=== PATIENT | female | born 1940 | race Caucasian/White ===

== ENCOUNTER 2019-06-25 14:02 | Emergency (ER) | payer MEDICARE, SELFPAY ==
[2019-06-25 14:05] VITALS: BP 161/80; PULSE 83; RESP 16; TEMP 36.9; O2SAT 99; BMI 24.0
--- NOTE | 2019-06-25 15:00 | CT_ITS ---
STUDY: CT BRAIN WITHOUT CONTRAST REASON FOR EXAM: Female, 78 years old. Confusion dizziness RADIATION DOSAGE (If Supplied By Facility): CTDIvol = ( 44.99 ) mGy, DLP = ( 762.36 ) mGycm TECHNIQUE: Transaxial CT imaging of the brain was performed without administration of intravenous contrast material. Individualized dose optimization techniques were used for this CT. COMPARISON: No relevant priors. FINDINGS: Normal soft tissue structures. Normal calvarium. There is mild cerebral atrophy with widening of the extra-axial spaces and ventricular dilatation. There are areas of decreased attenuation within the white matter tracts of the supratentorial brain, consistent with microvascular disease changes. Normal basal ganglia and thalami. Normal brainstem. There is mild cerebellar atrophy. There is no intracranial hemorrhage. There are no findings of an acute ischemic infarction. Normal visualized paranasal sinuses. CT/Brain/Head without Contrast IMPRESSION: Atrophy. No evidence of acute hemorrhage infarct or edema. Electronically Signed: Ara Leach MD at 15:47 EST Tel , Service support ,
--- NOTE | 2019-06-25 15:03 | ED.DCSUM_ITS ---
History of Present Illness Chief Complaint: Upper Extremity Injury Informant: Patient, Family Narrative: Patient is a 78-year-old female with history of recent mechanical fall and I fracture of her distal left radius presenting with family for concerns of confusion. They note that over the past few months patient has seemed more confused and has had erratic behavior. She is missed doctor's appointments even though she was at the doctor's office and when she just left from the waiting room earlier this month. She apparently is going to the grocery store every day this week and about the same item. Family is concerned that she has a brain tumor or something elsewrong with her. Patient was seen at [facility] urgent care and diagnosed with a distal radius fracture this week. She was placed in a splint but patient keeps taking the splint off and not wearing it. Patient states she was never told to keep it on. Patient has some mild pain in her wrist. She is been taking Tylenol for the pain. Patient states she lost her balance and fell onto an outstretched hand. She denies hitting her head. Patient has no complaints at this time he does not feel confused. She does not recall the events of the family speaks of. Past Medical History - Allergies and Home Meds Allergies/Adverse Reactions: Allergies succinylcholine [Succinylcholine] Allergy (Severe, Verified 06/25/19 14:04) Other PARALYZED levofloxacin [From Levaquin] Allergy (Mild, Verified 06/25/19 14:04) Rash Sulfa (Sulfonamide Antibiotics) Allergy (Mild, Verified 06/25/19 14:04) Rash lorazepam Adverse Reaction (Intermediate, Verified 06/25/19 14:04) Other HALLUCINATION atorvastatin [From Lipitor] Adverse Reaction (Verified 06/25/19 14:04) muscle aches Primary Care Physician: Melvi Villalta MD [Primary Care Provider] - Jaron Lara DO [STAFF PHYSICIAN] - Past Medical History: - - Hypothyroid, hypertension, diabetes mellitus, GERD, depression, COPD Surgical History: noncontributory Lives: Spouse/ Significant Other Smoking Status: Never smoker Alcohol: None Drugs: None Review of Systems General: Denies: Chills, Fever, Sweats Eyes: Denies: Visual changes - bilaterally, Diplopia ENT: Denies: Rhinorrhea, Sore throat Cardiovascular: Denies: Chest pain, Palpitations Respiratory: Denies: Dyspnea, Cough, Dyspnea on exertion Gastrointestinal: Denies: Abdominal pain, Nausea, Vomiting, Diarrhea, Melena, Hematochezia Genitourinary: Denies: Dysuria, Hematuria, Frequency Musculoskeletal: Reports: Swelling - Left wrist/hand, Extremity Pain - Left wrist. Denies: Back pain Skin: Denies: Rash, Wounds Neurological: Reports: - - Increased confusion over the past few months per family. Denies: Headache, Weakness, Numbness Physical Exam Vital Signs/Narrative: Vital Signs Temp Pulse Resp BP Pulse Ox 06/25/19 14:05 98.5 F 83 16 161/80 H 99 Inital Vital Signs reviewed: Yes General: Well nourished, Well developed, No Acute Distress Head: Normocephalic, Atraumatic Eyes: Perrl, EOMI ENT: Moist mucous membranes, No rhinorrhea, TM's clear Neck: Supple, Nontender Cardiovascular: Regular rate, Regular rhythm, No murmurs Respiratory: No distress, CTA bilaterally, Chest nontender Abdomen: Soft, Nontender, Nondistended, Normal bowel sounds Back: Nontender, Normal Inspection Extremities: Tenderness - Left wrist/distal forearm, Edema - Left wrist/distal forearm Skin: Normal color, No rash, Trauma - Ecchymosis of the left wrist and hand Neurological: Alert, Oriented x3, Cranial nerves II-XII grossly intact, Normal Strength, Normal Sensation, - - Patient is A&O x3 however she does repeat herself frequently with a reenter the room and does seem to have some issues with short-term memory Psychological: Normal affect, Normal Mood Diagnostic/Tx/Re-eval Clinical Impression(s) from Imaging Studies Brain CT 06/25/19 15:00 IMPRESSION: Atrophy. No evidence of acute hemorrhage infarct or edema. Electronically Signed: Ara Leach MD at 15:47 EST Tel , Service support , Laboratory Data 06/25/19 06/25/19 06/25/19 15:17 15:17 15:31 WBC 6.4 RBC 4.54 Hgb 14.5 Hct 41.5 MCV 91.4 MCH 31.9 MCHC 34.9 RDW Std Deviation 41.0 RDW Coeff of Thiago 12.4 Plt Count 150 MPV 9.2 Immature Gran % (Auto) 0.300 Neut % (Auto) 76.8 H Lymph % (Auto) 14.8 L Dooly % (Auto) 7.0 Eos % (Auto) 0.9 Baso % (Auto) 0.2 Absolute Neuts (auto) 4.9 Absolute Lymphs (auto) 0.95 Nucleated RBC % 0 Sodium 136 Potassium 3.9 Chloride 103 Carbon Dioxide 26.0 Anion Gap 7 BUN 11 Creatinine 0.93 Estim Creat Clear Calc 39.43 Est GFR (MDRD) Af Amer 75 Est GFR (MDRD) Non-Af 62 BUN/Creatinine Ratio 11.8 Glucose 167 H Calcium 9.5 Total Bilirubin 0.50 AST 12 L ALT 13 Alkaline Phosphatase 77 Total Protein 7.0 Albumin 3.9 Globulin 3.1 Albumin/Globulin Ratio 1.3 Urine Color Yellow Urine Clarity Clear Urine pH 7.0 Ur Specific [place] 1.010 Urine Protein Negative Urine Glucose (UA) Normal Urine Ketones Negative Urine Occult Blood 10 H Urine Nitrite Negative Urine Bilirubin Negative Urine Urobilinogen Normal Ur Leukocyte Esterase 25 H Urine RBC 0 SEEN Urine WBC 0-5 SEEN Ur Squamous Epith Cells 0-5 SEEN Urine Bacteria RARE Urine Mucus 0 SEEN - Medical Decision Making Patient is initially brought in for re-splinting of her left arm as she has taken off her splint. Patient did have x-rays are reviewed but did show nondisplaced distal radius fracture. A new splint is applied. Patient is neurovascular intact. She has not seen any new injuries and I do not think repeat imaging is indicated. However, family is quite concerned that over the past few months she has been more confused and might be developing dementia. They are worried that also she could have an organic cause. CT of the brain and lab work and urine are unremarkable and do not explain her symptoms. Likely she is starting to have dementia. Patient is counseled extensively that she needs to keep her splint on. A new volar splint is placed. I did discuss with Dr. Lara to help arrange follow-up with her this week. Patient has good pain control and is instructed take Tylenol as needed for pain. Family is counseled on signs and symptoms upon return the emergency room. They verbalized agreement understanding this plan. Patient discharged home in stable condition. She is encouraged also follow-up with her primary care physician for further evaluation of her memory issues. ED Disposition - Plan for ED Patient: Disposition: Home or Assisted Living Diagnosis: Fracture of left distal radius Instructions: FRACTURE, Upper Extremity Referrals: Melvi Villalta MD [Primary Care Provider] - Jaron Laar DO [STAFF PHYSICIAN] - Additional Instructions: I reviewed the disc from urgent care and agree that you have a fracture of your distal radius. It is very important that you keep your splint on so that you do not continue. Follow-up with orthopedics next week. You have been given contact information for Dr. Lara. It is also very important that you follow- up with your primary care doctor as you have had some increased forgetfulness. Return the emergency room you have any worsening symptoms. Take Tylenol as needed for pain. Do not remove your splint unless you are having numbness or severe pain of your hand.
[2019-06-25 15:26] LABS: Absolute Lymphocyte Count 0.95 X10^3/uL (0.83-4.51); Absolute Neutrophil Count 4.9 X10^3/uL (2.0-7.7); Basophil# 0.01 X10^3/uL; Basophil% 0.2 % (0-1); Eosinophil# 0.06 X10^3/uL; Eosinophils% 0.9 % (0-5); Hematocrit 41.5 % (37-47); Hemoglobin 14.5 g/dL (12.0-15.0); Lymphocyte # 0.95 X10^3/ul (4.0); Lymphocyte % 14.8 % (19-41); Mean Corp Hgb Conc 34.9 g/dL (32-36); Mean Corpuscular Hgb 31.9 pg (27.0-32.0); Mean Corpuscular Volume 91.4 fL (81-99); Mean Platelet Vol. 9.2 fl (6.2-12.0); Monocyte# 0.45 X10^3/uL; NRBC Flagged by Analyzer 0 % (0-5); Neutrophil # 4.92 X10^3/uL (2.7-7.7); Neutrophil % 76.8 % (47-70); Platelet Count 150 K/mm3 (150-450); RBC Distribution Width CV 12.4 % (11.6-14.6); Red Blood Count 4.54 M/mm3 (4.2-5.4); White Blood Count 6.4 K/mm3 (4.4-11.0)
[2019-06-25 15:45] LABS: Mucous, Urine 0 SEEN /hpf (<or=2+); Red Blood Cells-Urine 0 SEEN /hpf (0-5)
[2019-06-25 15:48] LABS: ALB/GLOB Ratio 1.3 RATIO (0.9-2.4); AST(SGOT) 12 U/L (15-37); Alanine Aminotransfer ALT/SGPT 13 U/L (13-56); Albumin, Serum 3.9 g/dL (3.2-5.0); Alkaline Phosphatase 77 U/L (45-117); Anion Gap 7 (5-15); BUN 11 mg/dL (7-18); BUN/Creat Ratio 11.8 RATIO (10-20); Calcium,Total 9.5 mg/dL (8.5-10.1); Chloride 103 mmol/L (98-107); Creatinine, Serum 0.93 mg/dL (0.55-1.02); EST Glomerular Filtration Rate 62 mL/min (>60); Est Glom Filt Rate - Afr Amer 75 mL/min (>60); Estimated Creatinine Clearance 39.43 ml/min; Globulin 3.1 g/dL (2.2-4.2); Glucose 167 mg/dL (74-106); Potassium 3.9 mmol/L (3.5-5.1); Sodium Level 136 mmol/L (136-145)
[2019-06-25 15:52] LABS: Color, Urine Yellow (Yellow); Glucose, Dipstick Normal (Normal); Ketone-Dipstick Negative (Negative); Leukocyte Esterase-Dipstick 25 /ul (Negative); Nitrite-Dipstick Negative (Negative); Occult Blood-Urine 10 /ul (Negative); Protein-Dipstick Negative (Negative); Urine Bilirubin Dipstick Negative (Negative); Urine Clarity Clear (Clear); Urine Urobilinogen Normal (Normal)
[2019-06-25 16:08] LABS: White Blood Cells 0-5 SEEN /hpf (0-5)
[2019-06-25 16:09] LABS: Bacteria RARE /hpf (None Seen); Squamous Epithelial Cells - UA 0-5 SEEN /hpf (5-10)
== END 2019-06-25 17:22 | disposition home or self-care (01) ==
PROVIDERS: Emergency Provider Emergency Medicine; Family Provider Internal Medicine; PCP Internal Medicine
DX: S52.502D Unspecified fracture of the lower end of left radius, subsequent encounter for closed fracture with routine healing (principal); R41.0 Disorientation, unspecified; E03.9 Hypothyroidism, unspecified; I10 Essential (primary) hypertension; F32.9 Major depressive disorder, single episode, unspecified; E11.9 Type 2 diabetes mellitus without complications; J44.9 Chronic obstructive pulmonary disease, unspecified; K21.9 Gastro-esophageal reflux disease without esophagitis; Z79.51 Long term (current) use of inhaled steroids; Z79.84 Long term (current) use of oral hypoglycemic drugs; Z79.899 Other long term (current) drug therapy; W19.XXXD Unspecified fall, subsequent encounter
CPT/HCPCS: 70450; 80053; 81001; 85025; 99283; A4216

== ENCOUNTER 2019-07-02 10:41 | Emergency (ER) | payer MEDICARE, SELFPAY ==
[2019-07-02 10:42] VITALS: BP 156/86; PULSE 88; RESP 17; TEMP 36.9; O2SAT 98; BMI 23.2
--- NOTE | 2019-07-02 11:00 | RAD_ITS ---
STUDY: X-RAY - LEFT WRIST REASON FOR EXAM: Female, 78 years old. Left wrist deformity/pain s/p near fall-pt hit her arm while trying to catch herself from a fall TECHNIQUE: 3 view(s) of the wrist were obtained. COMPARISON: None. FINDINGS: Nondisplaced impaction type fracture of the distal radius. No evidence of intra-articular extension. There is a small and minimally displaced fracture of the ulnar styloid process. Soft tissue swelling with diffuse demineralization. RAD/Wrist min 3 Views IMPRESSION: Fractures as above Electronically Signed: Jose Louis DO at 11:28 EST Tel , Service support ,
--- NOTE | 2019-07-02 11:00 | ED.VISSUMM ---
- ER Visit Summary Date of Service: 07/02/19 Chief Complaint: Left wrist injury History of Present Illness: The patient is a 78 F who presents with a left wrist injury that occurred 2 days ago. Patient states she slipped while she was going down some stairs and hit her wrist on the railing. Patient states she was able to catch herself and did not fall to the ground. Patient denies any head injury or loss of consciousness. Patient denies any other injuries. Patient states she has been using ice with some relief. Patient denies any paresthesias or weakness. Physical Examination: Vital signs are stable. Patient is afebrile. Patient is in no acute distress. Musculoskeletal exam reveals tenderness, edema, and mild ecchymosis over the left wrist. There is no bony crepitance or step-off. Range of motion was slightly limited in complete flexion and complete extension secondary to pain. Sensation was intact light touch in the radial, median, and ulnar areas. Strength is 5/5 in the radial, median, and ulnar areas. Radial pulses are equal bilaterally. Capillary refill was less than 2 seconds in all digits. Test Results: X-rays of the left wrist were obtained. There is a nondisplaced fracture of the distal radius. There is also a minimally displaced fracture of the ulnar styloid. This was interpreted by the radiologist and myself. Emergency Department Course and Treatment: Patient was placed in a well-padded volar splint using 4 inch Ortho-Glass. Patient tolerated the procedure well. Neurovascular exam was intact post procedure. Patient was instructed to ice and elevate the left wrist. Patient was instructed to follow-up with Dr. Mason in 5 to 7 days. Patient was instructed to use Tylenol as needed for pain. Patient understood and was agreeable with the plan. All questions were answered. Disposition: Discharge home Impression: 1. Left distal radius fracture This note was generated with [employer]Span dictation software. It may contain incorrect words, spelling, and punctuation that were not noted in review of the chart prior to signing ED Disposition - Plan for ED Patient: Referrals: Melvi Villalta MD [Primary Care Provider] -
--- NOTE | 2019-07-02 13:26 | CM.ED ---
Social Work Consult: Resources Informant: Nursing staff After patient discharged from the ED patient son asking to speak with social science instructor about resources as patient son is concerned about safety and possible Dementia diagnosis for patient. Met with patient son, Evens Holt. Evens stating that patient broke arm around 2 weeks ago and since then patient has removed splint 3 times and continues to return to the ED for pain in arm. Evens stating that patient appears to be removing splint on arm and then forgetting that patient has a broken arm and returning to the ED due to the pain. Evens stating that patient lives alone and still drives. Per Evens patient goes to the grocery store daily and buys the same things every day. Evens stating that 8 months ago patient started to [employer] grocer[employer]. Evens stating that patient has filled a full sized chest freezer and refrigerator with food and that Evens has cleaned out both multiple times. Evens concerned with patient safety in the home and stating to have set up an appointment with a production aide company for the 21 of July. Evens stating that one of patient's friends also contacted Evens stating that patient has been getting lost while out driving. Evens inquiring into possible options for patient until 24hr care is set up for patient within the home. This social science instructor broaching topic of respite care in an assisted living or retirement. Evens stating that respite care could be an option but is not what Evens is wanting to do at this time. This social science instructor broached topic of medical alert as well as possibilities of patient staying with Evens. Evens stating to already be taking care of [id number] and to not be sure if would be able to provide care for both patient and [id number]. Evens interested in medical alert information, information provided along with 211 resource guide, list of private duty aides, assisted livings and [facility]. Evens stating to believe that patient is taking medications as directed but not sure about this. This social science instructor encouraging Evens to set up doctors appointment for patient to be able to rule out any other possible medical complications. Evens also stating plan to take away patient keys for the time being. Active listening and support provided. Guy Nash MSW, HOLLY
== END 2019-07-02 12:44 | disposition home or self-care (01) ==
PROVIDERS: Emergency Provider Emergency Medicine; Family Provider Internal Medicine; PCP Internal Medicine
DX: S52.502A Unspecified fracture of the lower end of left radius, initial encounter for closed fracture (principal); S52.612A Displaced fracture of left ulna styloid process, initial encounter for closed fracture; W10.9XXA Fall (on) (from) unspecified stairs and steps, initial encounter; Y93.9 Activity, unspecified; Y92.9 Unspecified place or not applicable; J45.909 Unspecified asthma, uncomplicated; E11.9 Type 2 diabetes mellitus without complications; Z79.84 Long term (current) use of oral hypoglycemic drugs; Z79.899 Other long term (current) drug therapy
CPT/HCPCS: 29125; 73110; 99282

== ENCOUNTER 2019-08-29 15:25 | Emergency (ER) | payer MEDICARE, SELFPAY ==
[2019-08-29 15:28] VITALS: BP 162/92; PULSE 92; RESP 18; TEMP 36.7; O2SAT 99; BMI 23.1
--- NOTE | 2019-08-29 15:50 | RAD_ITS ---
STUDY: X-RAY - LEFT RADIUS AND ULNA REASON FOR EXAM: Female, 78 years old. PAIN S/P INJURY -- PAIN IS MID FOREARM TECHNIQUE: 2 view(s) of the forearm. COMPARISON: 07/02/2019 FINDINGS: There is no evidence of forearm fracture however, there is evidence of healing distal radius fracture as identified in June. Remainder is within normal limits RAD/Forearm 2 Views IMPRESSION: As above Electronically Signed: Jose Louis DO at 16:13 EST Tel , Service support ,
--- NOTE | 2019-08-29 15:54 | ED.DCSUM_ITS ---
History of Present Illness Chief Complaint: Upper Extremity Injury Informant: Patient Occurred: Weeks - 1.5 Mechanism/Context: Injury Context: Sudden Onset - accidentally bumped it on railing along her staircase at home Timing: Continuous Quality of Pain: Aching Location: left mid-proximal forearm Current Severity: Moderate Maximum Severity: Moderate Worsened by: certain movements Relieved by: remaining still Associated Symptoms: Negative for: Parasthesia, Weakness, Loss of Funtion Narrative: [id number]. She had a relatively minor blunt injury to her left forearm accidentally, she saw urgent care at [facility] last week but they did not she did an x-ray and she states it seems to be hurting a little worse now so she became concerned. She denies any numbness distally. She denies any wrist pain but the pain more proximally in her forearm hurts worse with certain wrist movements. - Past Medical History (1) Hypothyroidism Status: Chronic (2) Hypertension Status: Chronic (3) GERD (gastroesophageal reflux disease) Status: Chronic (4) Autoimmune disorder Status: Chronic Past Medical History - Allergies and Home Meds Allergies/Adverse Reactions: Allergies succinylcholine [Succinylcholine] Allergy (Severe, Verified 08/29/19 15:30) Other PARALYZED levofloxacin [From Levaquin] Allergy (Mild, Verified 08/29/19 15:30) Rash Sulfa (Sulfonamide Antibiotics) Allergy (Mild, Verified 08/29/19 15:30) Rash lorazepam Adverse Reaction (Intermediate, Verified 08/29/19 15:30) Other HALLUCINATION atorvastatin [From Lipitor] Adverse Reaction (Verified 08/29/19 15:30) muscle aches Primary Care Physician: Melvi Villalta MD [Primary Care Provider] - 1 Week if not improving Surgical History: noncontributory Lives: Alone Smoking Status: Never smoker Review of Systems General: Denies: Chills, Fever, Sweats Musculoskeletal: Reports: Extremity Pain. Denies: Neck pain, Back pain, Swelling Skin: Denies: Rash, Abscess, Abrasions, Wounds Neurological: Denies: Headache, Weakness, Parasthesia, Numbness Physical Exam Vital Signs/Narrative: Vital Signs Temp Pulse Resp BP Pulse Ox 08/29/19 15:28 98.1 F 92 18 162/92 H 99 General: Well nourished, Well developed, - - Well-appearing, no distress Head: Normocephalic, Atraumatic Extremeties: Full range of motion throughout all joints of her left upper extremity. Tender at the dorsum of the left mid-proximal forearm, and the extensor musculature in between the ulna and the radius. No deformities. No hematomas or evidence of trauma. Increased pain when extending at the wrist against resistance. Full range of motion at the wrist and elbow. No bony tenderness at the wrist or elbow. Skin: Normal color, No rash, No Trauma Neurological: Alert, Oriented x3, Cranial nerves II-XII grossly intact, Normal Strength, Normal Sensation Psychological: Normal affect, Normal Mood Diagnostic/Tx/Re-eval Clinical Impression(s) from Imaging Studies Forearm X-Ray 08/29/19 15:50 IMPRESSION: As above Electronically Signed: Jose Louis DO at 16:13 EST Tel , Service support , - Medical Decision Making X-rays are unremarkable. Her history and exam are consistent with muscular contusion of the extensor digitorum of the left upper extremity. Supportive care advised. Patient was reassured, she is comfortable with discharge home and supportive care. ED Disposition - Plan for ED Patient: Disposition: Home or Assisted Living Diagnosis: Contusion of left forearm Instructions: CONTUSION, Upper Extremity Referrals: Melvi Villalta MD [Primary Care Provider] - 1 Week if not improving
[2019-08-29 16:44] VITALS: RESP 17
== END 2019-08-29 16:48 | disposition home or self-care (01) ==
PROVIDERS: Emergency Provider Emergency Medicine; PCP Internal Medicine
DX: S50.12XA Contusion of left forearm, initial encounter (principal); I10 Essential (primary) hypertension; K21.9 Gastro-esophageal reflux disease without esophagitis; E03.9 Hypothyroidism, unspecified; Z79.899 Other long term (current) drug therapy; W22.09XA Striking against other stationary object, initial encounter; Y93.89 Activity, other specified; Y92.008 Other place in unspecified non-institutional (private) residence as the place of occurrence of the external cause; Y99.8 Other external cause status
CPT/HCPCS: 73090; 99282

== ENCOUNTER 2020-03-05 16:50 | Observation (INO) | payer MEDICARE, SELFPAY ==
[2020-03-05 16:51] VITALS: BP 154/99; PULSE 87; RESP 18; TEMP 36.4; O2SAT 97; BMI 22.3
[2020-03-05 16:59] VITALS: BP 166/108; PULSE 87; RESP 16
--- NOTE | 2020-03-05 17:12 | RAD_ITS ---
STUDY: X-RAY CHEST REASON FOR EXAM: Female, 79 years old. Hypertension, left arm numbness TECHNIQUE: Single AP portable view of the chest. COMPARISON: 07/07/2016 FINDINGS: EKG leads overlie the chest The lungs are clear and expanded. There is no demonstrated pleural abnormality. Normal size heart. Normal mediastinum and jennie. Normal visualized pulmonary arteries. Normal visualized aortic arch and descending thoracic aorta. Normal visualized thoracic spine. Normal visualized ribs, clavicles, and shoulders. There is no demonstrated abnormality of the visualized soft tissue structures of the upper abdomen. RAD/Chest 1 View (Portable) IMPRESSION: No acute pulmonary process Electronically Signed: Edilson Jaime MD at 17:53 EDT , Service support ,
--- NOTE | 2020-03-05 17:13 | EKG12_ITS ---
Test Reason : Blood Pressure : / mmHG Vent. Rate : 077 BPM Atrial Rate : 077 BPM P-R Int : 148 ms QRS Dur : 088 ms QT Int : 366 ms P-R-T Axes : 024 -51 058 degrees QTc Int : 414 ms Sinus rhythm with Premature atrial complexes Left axis deviation Low voltage QRS (Limb Leads) Poor R wave progression Inferior GA, age undetermined, cannot be excluded Abnormal ECG Confirmed by AYANA PALMER, MORENO ([id number]), rewrite editor WINTER LINARES ([id number]) on 03/07/2020 1:02:01 PM Referred By: CARTER Confirmed By:MORENO PIÑA MD
--- NOTE | 2020-03-05 17:13 | CT_ITS ---
STUDY: CT BRAIN WITHOUT CONTRAST REASON FOR EXAM: Female, 79 years old. Hypertension, mental status change RADIATION DOSAGE (If Supplied By Facility): CTDIvol = ( 44.99 ) mGy, DLP = ( 812.98 ) mGycm TECHNIQUE: Transaxial CT imaging of the brain was performed without administration of intravenous contrast material. Individualized dose optimization techniques were used for this CT. COMPARISON: No relevant priors. FINDINGS: Normal soft tissue structures. Normal calvarium. There is mild cerebral atrophy with widening of the extra-axial spaces and ventricular dilatation. There are areas of decreased attenuation within the white matter tracts of the supratentorial brain, consistent with microvascular disease changes. Normal basal ganglia and thalami. Normal brainstem. Normal cerebellum. There is no intracranial hemorrhage. There are no findings of an acute ischemic infarction. Normal visualized paranasal sinuses. CT/Brain/Head without Contrast IMPRESSION: Chronic involutional changes of the brain. No acute hemorrhage Electronically Signed: Edilson Jaime MD at 18:21 EDT , Service support ,
[2020-03-05 17:29] LABS: Absolute Lymphocyte Count 0.83 X10^3/uL (0.83-4.51); Absolute Neutrophil Count 4.2 X10^3/uL (2.0-7.7); Basophil# 0.02 X10^3/uL; Basophil% 0.4 % (0-1); Eosinophil# 0.04 X10^3/uL; Eosinophils% 0.7 % (0-5); Hematocrit 45.8 % (37-47); Hemoglobin 15.7 g/dL (12.0-15.0); Lymphocyte # 0.83 X10^3/ul (4.0); Lymphocyte % 15.3 % (19-41); Mean Corp Hgb Conc 34.3 g/dL (32-36); Mean Corpuscular Hgb 31.5 pg (27.0-32.0); Mean Platelet Vol. 8.9 fl (6.2-12.0); Monocyte# 0.32 X10^3/uL; Monocyte% 5.9 % (0-10); NRBC Flagged by Analyzer 0 % (0-5); Neutrophil # 4.18 X10^3/uL (2.7-7.7); Neutrophil % 77.1 % (47-70); Platelet Count 154 K/mm3 (150-450); RBC Distribution Width CV 12.6 % (11.6-14.6); RBC Distribution Width SD 42.5 fl (35.1-43.9); Red Blood Count 4.98 M/mm3 (4.2-5.4); White Blood Count 5.4 K/mm3 (4.4-11.0)
[2020-03-05 17:46] LABS: Bedside Glucose 145 mg/dL (70-110)
[2020-03-05 17:51] LABS: ALB/GLOB Ratio 1.3 RATIO (0.9-2.4); AST(SGOT) 13 U/L (15-37); Alanine Aminotransfer ALT/SGPT 15 U/L (13-56); Alkaline Phosphatase 63 U/L (45-117); Anion Gap 4 (5-15); BUN 13 mg/dL (7-18); BUN/Creat Ratio 13.3 RATIO (10-20); Calcium,Total 9.7 mg/dL (8.5-10.1); Chloride 105 mmol/L (98-107); Creatinine, Serum 0.98 mg/dL (0.55-1.02); EST Glomerular Filtration Rate 58 mL/min (>60); Est Glom Filt Rate - Afr Amer 71 mL/min (>60); Estimated Creatinine Clearance 36.82 ml/min; Glucose 164 mg/dL (74-106); Potassium 4.1 mmol/L (3.5-5.1); Sodium Level 136 mmol/L (136-145); Thyroid Stim Hormone (TSH) 4.99 uIU/mL (0.358-3.74)
--- NOTE | 2020-03-05 18:10 | CM.ED ---
SOCIAL WORK Informant: Dr. Garcia Reason for Consult: Discharge planning Case discussed with Dr. Garcia. Per Dr. Garcia, patient with history of dementia and is a hoarder. Son in room with concerns for patient going home. Recommending SNF. Met with son in room. Patient out of room at this time. Introduced role and reason for referral. Son discussed concerns for patient's safety in the home and hoarding behaviors. Patient with history of dementia. Son reports patient still drives and makes daily trips to [facility]. Son showed this worker pictures on phone of patient's home conditions. Patient is unable to close her fridge due to it being overloaded with food. Patient with unclear pathways to get through the home. Education provided on Adult Protective Services, this worker to complete a report. Son states patient's daughter is HPOA and they have been discussing placement. Son reports patient will likely refuse to go to SNF. Much support and education provided to son. Awaiting work up at this time. Dr. Garcia updated on this worker's conversation with son. Plan: RICHI Spain, AGRICULTURAL SERVICE TECHNICIAN, WASH DRILLER
[2020-03-05 18:14] LABS: Alcohol, Blood (Medical)-Serum < 3.0 mg/dL
[2020-03-05 19:05] LABS: Bacteria 0 SEEN /hpf (None Seen); Mucous, Urine 0 SEEN /hpf (<or=2+); Red Blood Cells-Urine 0 SEEN /hpf (0-5); Squamous Epithelial Cells - UA 0 SEEN /hpf (5-10); White Blood Cells 0 SEEN /hpf (0-5)
[2020-03-05 19:21] LABS: Color, Urine Yellow (Yellow); Glucose, Dipstick Normal (Normal); Ketone-Dipstick Negative (Negative); Leukocyte Esterase-Dipstick Negative /ul (Negative); Nitrite-Dipstick Negative (Negative); Occult Blood-Urine Negative /ul (Negative); Protein-Dipstick Negative (Negative); Urine Bilirubin Dipstick Negative (Negative); Urine Clarity Clear (Clear); Urine Urobilinogen Normal (Normal); Urine pH 6.5 (5.0 - 8.0)
[2020-03-05 19:30] VITALS: BP 158/78; PULSE 96; RESP 16; O2SAT 96
--- NOTE | 2020-03-05 19:40 | CM.ED ---
SOCIAL WORK Patient to be admitted. Discussed case with Dr. Wang who met with patient and daughter in room. Per son's request, met with son-Jared Holt ([phone]) and daughter/HPOA, Yara Espinal ([phone]) in waiting room. Discussed options for SNF and HEATHER. Education provided on Adult Protective Services and informed this worker will make report and provide APS with family's contact information. Informed a psych social worker will follow up tomorrow for safe discharge planning. All questions answered and support provided. Plan: Admit Baldemar Spain MSW, METAL MACHINE SETTER
--- NOTE | 2020-03-05 19:41 | PCM.HP.STD ---
Problem List (1) TIA (transient ischemic attack) Status: Acute (2) Paresthesia of left upper extremity Status: Acute (3) HLD (hyperlipidemia) Status: Chronic Qualifiers: Hyperlipidemia type: unspecified Qualified Code(s): E78.5 - Hyperlipidemia, unspecified (4) Dementia Status: Chronic Qualifiers: Dementia type: unspecified type Dementia behavioral disturbance: without behavioral disturbance Qualified Code(s): F03.90 - Unspecified dementia without behavioral disturbance (5) Autoimmune disorder Status: Chronic (6) GERD (gastroesophageal reflux disease) Status: Chronic Qualifiers: Esophagitis presence: esophagitis presence not specified Qualified Code(s): K21.9 - Gastro-esophageal reflux disease without esophagitis (7) Hypertension Status: Chronic Qualifiers: Hypertension type: essential hypertension Qualified Code(s): I10 - Essential (primary) hypertension (8) Hypothyroidism Status: Chronic Qualifiers: Hypothyroidism type: unspecified Qualified Code(s): E03.9 - Hypothyroidism, unspecified History of Present Illness Date of Admission: 03/05/20 Chief Complaint: LUE paresthesias The patient is a 79 y/o F w/ PMHx: HTN, HLD, Asthma, Allergic Rhinitis, Hypothyroidism, Diabetes mellitus type II, Anxiety and Depression, Suspected underlying dementia without behavioral disturbance history, GERD, Primary Immunodeficiency Syndrome who presents to the [facility] ED on 03/05/20, noted to have driven herself secondary to history of increased left upper extremity ongoing constant numbness and tingling over the last week noting that she has had issues with paresthesias for several months since an injury and fracture in July but this has been ongoing and constant and more pronounced than previously which had been intermittent and less severe and so far as not as much numbness as previously. She notes that she still able to use the extremity but is having difficulty. Denies any other associated neurological deficits. Family present in the ED, daughter (HCPOA) notes significant concern for likely underlying dementia with ongoing work-up at the [facility] with significant hoarding tendencies. In the ED social work/case management involved secondary to family concerns for patient's welfare at home. Work-up in the ED included CBC with WBC 5.4, hemoglobin 15.7, platelet 154 without market shift, CMP unremarkable aside glucose 164, troponin less than 0.015, TSH 4.99, EKG with sinus rhythm with no acute evidence of ischemia, urinalysis unremarkable, urine drug screen, ethyl alcohol unremarkable, COVID testing pending, chest x-ray with no acute cardiopulmonary findings, CT of the brain with chronic involutional changes with no acute intracranial findings. Past Medical History Past Medical History (Chronic Problems): Chronic Problems Hypothyroidism (Chronic) Hypertension (Chronic) GERD (gastroesophageal reflux disease) (Chronic) Autoimmune disorder (Chronic) HLD (hyperlipidemia) (Chronic) Dementia (Chronic) Allergies succinylcholine [Succinylcholine] Allergy (Severe, Verified 03/05/20 16:52) Other PARALYZED levofloxacin [From Levaquin] Allergy (Mild, Verified 03/05/20 16:52) Rash Sulfa (Sulfonamide Antibiotics) Allergy (Mild, Verified 03/05/20 16:52) Rash lorazepam Adverse Reaction (Intermediate, Verified 03/05/20 16:52) Other HALLUCINATION atorvastatin [From Lipitor] Adverse Reaction (Verified 03/05/20 16:52) muscle aches Home Medications: Ambulatory Orders Medication Instructions Recorded Albuterol/Ipratropium [Combivent 1 puff INHALATION 4X/DAY PRN PRN 04/12/13 Inhaler] Immune Globulin 5 Gm [Gammagard 15 gm IV QMONTH 04/12/13 Liquid] Montelukast [Singulair] 10 mg PO DAILY 04/12/13 Omeprazole [Prilosec] 20 mg PO DAILY 04/12/13 Paroxetine [Paxil] 60 mg PO DAILY 04/12/13 metFORMIN HCl [Glucophage] 500 mg PO BID 04/12/13 Fluticasone/Salmeterol [Advair 1 puff INHALATION BID 01/17/15 250/50 Mcg Diskus] Levothyroxine [Synthroid] 25 mcg PO SUMOWETHFRSA 08/01/15 Calcium Carbonate/Vitamin D3 2 each PO DAILY 05/08/16 [Calcium 500+D Tablet Chew] Guaifenesin [Mucinex] 600 mg PO BID PRN 05/08/16 Triamcinolone Acetonide [Nasacort 2 spray NASAL QHS 05/08/16 Aq Nasal [place]] Losartan Potassium [Cozaar] 25 mg PO QHS 07/30/16 Losartan Potassium [Cozaar] 50 mg PO DAILY 07/30/16 Levothyroxine [Synthroid] 50 mcg PO TU 08/27/16 Surgical History: - - Cataract surgery bilaterally, lumbar back surgery with fusion, x1. Psychiatric History: Anxiety, Depression RIGGING UP MAN History: No pertinent RIGGING UP MAN history Lives: Alone - Patient currently living alone, family concerned about underlying dementia with significant hoarding tendencies per their report and notable pictures demonstrated. Smoking Status: Never smoker Tobacco Use: Non-smoker Alcohol: None Drugs: None - *Family History Maternal History Items: Diabetes Paternal History Items: - - Patient denies any significant paternal family history, notes he lived to an old age, denies any hypertension, hyperlipidemia, heart disease, diabetes, cancer, dementia. Review of Systems Constitutional: Denies: Anorexia, Chills, Fever, Malaise, Weakness, Weight Change, Fatigue HEENT: Denies: Head Aches, Sinus Congestion, Sinus Drainage Cardiovascular: Denies: Chest Pain, Palpitations Respiratory: Denies: Cough, Shortness of Breath, Shortness of breath at rest, Shortness of breath upon exertion, Sputum production Gastrointestinal: Denies: Abdominal Pain, Nausea, Vomiting Genitourinary: Denies: Dysuria Musculoskeletal: Reports: Back Pain. Denies: Joint Pain, Joint Tenderness Skin: Denies: Rash, Wounds Neurological: Reports: Confusion, Numbness, Tingling. Denies: Focal weakness Psychiatric: Reports: Anxiety, Depression. Denies: Homicidal Ideations, Suicidal Ideations Hematologic/ Lymphatic: Denies: Easy Bruising, Easy Bleeding VTE Information - Inpt Only VTE Present on Admission: No VTE Mechan Device Prophylaxis: SCD's VTE Pharm Prophylaxis ordered?: Yes Patient Problems: Active and Suspected Problems TIA (transient ischemic attack) (Acute) Paresthesia of left upper extremity (Acute) Subjective: Patient seated upright in the ED bed, no acute distress, did become flustered with certain orientation questions and looking at her daughter for confirmation of answers. Objective: Physical Examination: General: awake, alert, oriented to 3 of 4, was unsure of the specific month but did answer president, year, place correctly, remained cooperative, seated upright in the ED bed in no apparent distress but did become mildly frazzled when asked specific questions and do suspect underlying dementia. Skin: normal color, turgor, no icterus, cyanosis. HEENT: AT/NC, EOMI, PERRLA, MMM, no carotid bruits or JVD noted. Lungs: CTA bilaterally, moderate effort, mild decrease BL bases, no rales, ronchi or wheezing. Heart: Regular rate and rhythm; no gallop, rub audible. Abdomen: soft, NTTP, ND, normal BS, no HSM. Extremities: no cyanosis, clubbing, or edema. Neurological: patient awake, alert, oriented as noted; cognitive function suspect currently baseline intact with high suspicion for underlying dementia especially given patient responses and frequently seeming to forget that we discussed items which family notes has been a chronic issue; pupils equally reactive to light and accomodation; cranial nerves II-XII grossly normal, moving all 4 extremities, no focal deficits, left upper extremity paresthesias subjectively, no drift on upper extremity or lower extremity, difficulty performing left upper extremity [id number] however, negative Babinski bilaterally, [id number] appropriate. Psychiatric: affect appears normal, no acute evidence of depressive or anxiety feelings. - Physical Exam Vitals/I&O's: Vital Signs Temp Pulse Resp BP Pulse Ox 97.5 F L 87 16 166/108 H 97 03/05/20 16:51 03/05/20 16:59 03/05/20 16:59 03/05/20 16:59 03/05/20 16:51 Weight: 121 lb 14.65 oz Body Mass Index (BMI) 22.3 Finger Stick Blood Glucose 145 Laboratory Results 03/05/20 17:15: WBC 5.4, RBC 4.98, Hgb 15.7 H, Hct 45.8, MCV 92.0, MCH 31.5, MCHC 34.3, RDW Std Deviation 42.5, RDW Coeff of [place] 12.6, Plt Count 154, MPV 8.9, Immature Gran % (Auto) 0.600, Neut % (Auto) 77.1 H, Lymph % (Auto) 15.3 L, Coles % (Auto) 5.9, Eos % (Auto) 0.7, Baso % (Auto) 0.4, Absolute Neuts (auto) 4.2, Absolute Lymphs (auto) 0.83, Nucleated RBC % 0 03/05/20 17:15: Sodium 136, Potassium 4.1, Chloride 105, Carbon Dioxide 27.0, Anion Gap 4 L, BUN 13, Creatinine 0.98, Estim Creat Clear Calc 36.82, Est GFR (MDRD) Af Amer 71, Est GFR (MDRD) Non-Af 58 L, BUN/Creatinine Ratio 13.3, Glucose 164 H, Calcium 9.7, Total Bilirubin 0.40, AST 13 L, ALT 15, Alkaline Phosphatase 63, Troponin I < 0.015, Total Protein 7.0, Albumin 4.0, Globulin 3.0, Albumin/Globulin Ratio 1.3, TSH 4.99 H 03/05/20 17:15: Ethyl Alcohol < 3.0 03/05/20 17:39: POC Glucose 145 H 03/05/20 17:50: COVID-19 (GOVIND) Pending 03/05/20 18:47: Urine Opiates Screen Pending, Urine Methadone Screen Pending, Ur Barbiturates Screen Pending, Ur Phencyclidine Scrn Pending, Ur Amphetamines Screen Pending, U Methamphetamin-MDMA Pending, U Benzodiazepines Scrn Pending, Urine Cocaine Screen Pending, U Cannabinoids Screen Pending, Ur Drug Screen Comment 03/05/20 18:47: Urine Color Yellow, Urine Clarity Clear, Urine pH 6.5, Ur Specific [place] 1.010, Urine Protein Negative, Urine Glucose (UA) Normal, Urine Ketones Negative, Urine Occult Blood Negative, Urine Nitrite Negative, Urine Bilirubin Negative, Urine Urobilinogen Normal, Ur Leukocyte Esterase Negative, Urine RBC 0 SEEN, Urine WBC 0 SEEN, Ur Squamous Epith Cells 0 SEEN, Urine Bacteria 0 SEEN, Urine Mucus 0 SEEN Assessment/Plan All Active Problems TIA (transient ischemic attack) (Acute) Paresthesia of left upper extremity (Acute) The patient is a 79 y/o F w/ PMHx: HTN, HLD, Asthma, Allergic Rhinitis, Hypothyroidism, Diabetes mellitus type II, Anxiety and Depression, Suspected underlying dementia without behavioral disturbance history, GERD, Primary Immunodeficiency Syndrome who presents to the [facility] ED on 03/05/20, noted to have driven herself secondary to history of increased left upper extremity ongoing constant numbness and tingling over the last week noting that she has had issues with paresthesias for several months since an injury and fracture in July but this is been constant and more pronounced. 1. Acute on Chronic LUE Paresthesias concerning for CVA versus cervical disease: Will admit to PCU to be cautious, will obtain MRI Brain and neck, MRA Head and Neck, ECHO, PT/OT/Speech/Nutrition evaluation per protocol. Will allow permissive HTN, maintain on asa, defer immediate statin as noted intolerance w/ AM FLP, fall precautions. Mag, HgbA1c and FT4 with noted elevated TSH pending. 2. Dementia without behavioral disturbance history: Ongoing work-up with [facility], had follow-up scheduled however canceled with COVID pandemic, encourage continued set up of these visits as suspect likely underlying dementia contributing to significant hoarding tendencies. Case management/social work consulted and likely will decline any placement therefore likely will need Adult Protective Services informed at discharge. 3. Hypothyroidism with abnormal TSH level: We will continue noted Synthroid regimen in the system, states she has no thyroid issue but given underlying dementia and work-up will continue pending medicine clarification, TSH elevated, free T4 requested this may be subclinical. 4. Hypertension: We will maintain permissive hypertension pending CVA work-up as noted. 5. Hyperlipidemia: Noted allergy to statins with muscle aches, may need to consider low-dose pending evaluation, defer currently, FLP in AM. 6. Primary Immunodeficiency syndrome: Noted to follow outpatient with Dr. manuel prior, currently transition [facility], previously on IVIG. 7. Anxiety and depression: We will continue patient Paxil regimen. Patient likely underlying dementia contributing especially with hoarding tendencies. 8. Diabetes mellitus type II: Patient notes previously on regimen, no longer on metformin per her report but poor historian, will obtain hemoglobin A1c given presentation, in the interim we will maintain on ADA diet, accu checks w/ ISS, patient consulted per protocol given CV assessment for education and teaching. 9. Chronic asthma: Patient notes well controlled, no longer on any aerosols, will have PRN albuterol, encourage head of bed, I-S and continue Singulair. 10. GERD: We will continue patient home Prilosec regimen. 11. DVT prophylaxis: SCDs, Lovenox. 12. CODE status: Patient ANDREW is her daughter who is present and living will is currently in place. Discussed CODE status at length including difference between FULL code, DNR-CCA and DNR-CC status. Following discussions about the differences in these status, requested full CODE STATUS. Advanced Care Planning Face to Face Time: 16 minutes. OBSV E&M: 77030 Initial observation care L3 Procedures: 80609 Advncd Care Plan 30 Min
--- NOTE | 2020-03-05 19:46 | ED.VISSUMM ---
- ER Visit Summary Date of Service: 03/05/20 Chief Complaint: Left arm numbness History of Present Illness: The patient is a 79 F with left arm numbness. This has been going on for months. She believes it is attributed to her high blood pressure. It was 160/100 today. She went to see her PCP. She has been taking her medications. She was referred to the ED not for her neurologic or blood pressure complaints, but for failure to thrive. Apparently the patient has been having increasing memory issues. She is stockpiling food. Her house is unkempt and she is unsafe at home. Physical Examination: Afebrile and vital signs unremarkable. Heart regular. Lungs clear. Abdomen soft. Skin appears normal. Cranial nerves grossly intact. Normal strength and sensation. Test Results: EKG shows sinus rhythm with PACs at a rate of 77. Chest x-ray and CT brain showed chronic changes. Hemoglobin 15.7, glucose 164, AST 13, urinalysis pending. Troponin normal. TSH 4.99. Tox screen pending. Alcohol negative. Emergency Department Course and Treatment: Patient symptoms have been going on for months. I do not find a hypertensive emergency. Nothing to explain her neurologic symptoms. I am more concerned about her safety. Her son and daughter are also concerned about her safety. Her PCP is concerned about her. They all felt that she needs placement. She has underlying dementia and it seems to be getting worse over the past year. She has gotten to the point where everyone feels she is unsafe. Social work saw the patient. Discussed with family multiple options. Patient will be placed in a prison. Admitted to the hospitalist. Treatment Plan: As above Disposition: Admission Impression: Failure to thrive, left upper extremity paresthesias This note was generated with [employer] software. It may contain incorrect words, spelling, and punctuation that were not noted in review of the chart prior to signing ED Disposition - Plan for ED Patient: Referrals: Melvi Villalta MD [Primary Care Provider] -
[2020-03-05 20:01] LABS: Probe Check PASS; Specimen Processing Control PASS
[2020-03-05 20:09] LABS: Amphetamine Urine VISTA NEGATIVE (<1000 ng/mL); Barbiturate Urine VISTA NEGATIVE (< 200 ng/mL); Benzodiazepine Urine VISTA NEGATIVE (< 200 ng/mL); Cocaine Urine VISTA NEGATIVE (< 300 ng/mL); Ecstacy Urine VISTA NEGATIVE (< 500 ng/mL); Methadone Urine VISTA NEGATIVE (< 300 ng/mL); PCP Urine VISTA NEGATIVE (< 25 ng/mL); THC Urine VISTA NEGATIVE (< 50 ng/mL); Vista UDS pH Range 6
[2020-03-05 20:12] VITALS: BP 158/78; PULSE 100; RESP 16; TEMP 36.9; O2SAT 96
[2020-03-05 20:47] VITALS: BMI 21.4
[2020-03-05 21:00] VITALS: BP 154/90; PULSE 89; RESP 18; TEMP 37.2; O2SAT 95
[2020-03-05 21:10] LABS: Magnesium 2.2 mg/dL (1.6-2.6); T4 Free Direct 0.94 ng/dL (0.76-1.46)
[2020-03-05 21:31] VITALS: PULSE 89
[2020-03-05] MEDS: Aspirin 81 MG TAB.CHEW PO (21:31)
[2020-03-05] MEDS: 0.9% Normal Saline 1,000 ML 100 ML IV (21:37)
[2020-03-05 21:45] LABS: Bedside Glucose 171 mg/dL (70-110)
[2020-03-05 22:19] VITALS: BMI 21.4
[2020-03-05 22:39] VITALS: BMI 21.4
[2020-03-06] VITALS (8 sets, daily range): BP systolic 150–172; BP diastolic 80–89; PULSE 73–86; RESP 16–18; TEMP 36.7–36.8; O2SAT 96–99; BMI 21.4
[2020-03-06 06:46] LABS: ALB/GLOB Ratio 1.2 RATIO (0.9-2.4); AST(SGOT) 11 U/L (15-37); Alanine Aminotransfer ALT/SGPT 14 U/L (13-56); Albumin, Serum 3.6 g/dL (3.2-5.0); Alkaline Phosphatase 57 U/L (45-117); Anion Gap 4 (5-15); BUN 11 mg/dL (7-18); BUN/Creat Ratio 13.7 RATIO (10-20); Calcium,Total 9.2 mg/dL (8.5-10.1); Chloride 107 mmol/L (98-107); Cholesterol 230 mg/dL (200); EST Glomerular Filtration Rate 73 mL/min (>60); Est Glom Filt Rate - Afr Amer 89 mL/min (>60); Estimated Creatinine Clearance 47.17 ml/min; Globulin 2.9 g/dL (2.2-4.2); Glucose 120 mg/dL (74-106); High Density Lipoprotein 56 mg/dL; Potassium 3.8 mmol/L (3.5-5.1); Protein, Total 6.5 g/dL (6.4-8.2); Sodium Level 139 mmol/L (136-145); Triglycerides 67 mg/dL; Very Low Density Lipoprotein 13 mg/dL (5-40)
[2020-03-06] MEDS: 0.9% Normal Saline 1,000 ML 100 ML IV (06:58)
[2020-03-06 07:34] LABS: Eosinophil 1 % (0-5); Lymphocyte 37 % (19-41); Monocyte 4 % (0-10); Neutrophil-Segmented 58 % (47-70); Platelet Estimate ADEQUATE (ADEQ); Reactive Lymphocyte 1+; Red Cell Morphology NORM C+C NORMAL (NORM C&C); Total Cells Counted 100 (MANUAL DIFF)
[2020-03-06 07:35] LABS: Differential Comment MANUAL DIFF
--- NOTE | 2020-03-06 08:00 | MRI_ITS ---
STUDY: MRA OF THE HEAD WITHOUT CONTRAST REASON FOR EXAM: Female, 79 years old. CVA, memory issues, n/t upper extremity TECHNIQUE: 3-D [id number] (TOF) imaging was performed with MIPs. The study was performed unenhanced. COMPARISON: None. FINDINGS: Normal bilateral petrous carotid arteries. Normal right cavernous carotid artery with a normal supraclinoid bifurcation. Normal left cavernous carotid artery with a normal supraclinoid bifurcation. Normal right A1 segments of the anterior cerebral artery. Normal left A1 segments of the anterior cerebral artery. Normal intact anterior communicating artery (ACOM). Normal bilateral A2 segments of the anterior cerebral arteries. Normal right M1 and M2 segments of the middle cerebral arteries, with a normal M1 bifurcation. Normal left M1 and M2 segments of the middle cerebral arteries, with a normal M1 bifurcation. Normal right posterior communicating artery (PCOM). There is non-visualization of the left posterior communicating artery (PCOM). Normal bilateral vertebral arteries. Normal basilar artery with a normal basilar bifurcation. The visualized bilateral superior cerebellar (SCA) arteries are normal. Normal bilateral P1, P2 and visualized P3 segments of the posterior cerebral arteries. There is no demonstrated aneurysm of the [place]. There is no major vessel occlusion or hemodynamically significant stenosis. Mild to moderate cerebral atrophy. MRI/MRA Head ONLY without Contrast IMPRESSION: Normal MRA of the head Electronically Signed: Lars Trujillo, at 10:09 EDT Tel , Service support ,
--- NOTE | 2020-03-06 08:00 | MRI_ITS ---
STUDY: MRI BRAIN WITHOUT CONTRAST REASON FOR EXAM: Female, 79 years old. cva, n/t left upper extremity, memory issues TECHNIQUE: Standardized multiplanar fat and water weighted pulse sequences were obtained. COMPARISON: CT 03/05/2020 FINDINGS: There is moderate cerebral atrophy with widening of the extra-axial spaces and ventricular dilatation. There are multiple white matter hyperintensities, distributed throughout the deep white matter tracts of the cerebral hemispheres, consistent with moderate chronic white matter ischemic changes. There is no evidence for recent intracranial ischemia or other cause of cytotoxic edema on diffusion weighted imaging (DWI). Normal T2* images of the brain without demonstrated susceptibility artifact. There is no demonstrated hemosiderin stain. Normal bilateral basal ganglia. Normal thalami. There is no extra-axial fluid accumulation. Normal flow voids within the major intracranial circulation suggesting patency by spin echo criteria. Normal sella turcica, pituitary gland, infundibular stalk, optic chiasm and hypothalamus. Normal tectal plate and pineal gland. Normal midbrain, jad and medulla. Normal cerebellum. Normal basal cisterns. Normal bilateral temporal bones. Normal bilateral internal auditory canals. There are bilateral ocular lens implants with otherwise normal intraorbital contents. Normal visualized paranasal sinuses. Normal calvarium and skull base. Normal visualized soft tissue structures. Normal visualized upper cervical spine. MRI/Brain without Contrast IMPRESSION: Involutional changes of the brain, as described above. No acute infarct. Electronically Signed: Ger Reynoso MD at 9:38 EDT Tel , Service support ,
--- NOTE | 2020-03-06 08:00 | MRI_ITS ---
STUDY: MRI CERVICAL SPINE WITHOUT CONTRAST REASON FOR EXAM: Female, 79 years old. LUE numbness, paresthesias TECHNIQUE: Standardized fat and water weighted pulse sequences were obtained in the sagittal and axial planes. COMPARISON: None FINDINGS: Normal foramen magnum and brainstem-cervical cord junction. Normal craniovertebral junction. Normal anterior atlantoaxial articulation. Normal odontoid process. Normal cervical lordosis. Normal vertebral bodies and posterior osseous elements. C2-3: Moderate sized central disc protrusion produces moderate spinal stenosis with abutment of the central spinal cord. No neural foraminal stenosis. C3-4: Mild broad disc osteophyte complex produces mild spinal stenosis and mild bilateral neural foraminal stenosis. C4-5: Mild broad disc osteophyte complex produces mild spinal stenosis but no neural foraminal stenosis. C5-6: 2 mm retrolisthesis of C5 on C6 with a mild broad disc osteophyte complex produces moderate spinal stenosis with abutment of the central spinal cord and mild bilateral neural foraminal stenosis. C6-7: 2 mm retrolisthesis of C6 on C7 with a mild broad disc osteophyte complex produces moderate spinal stenosis with abutment of the central spinal cord and mild bilateral neural foraminal stenosis. C7-T1: Normal endplates. Normal disc height, signal and morphology. Normal central canal and intervertebral neural foramina. Normal cervical cord. Normal visualized soft tissue structures. MRI/Spine Cervical (Routine) IMPRESSION: Multilevel degenerative changes, as described above. Electronically Signed: Ger Reynoso MD at 9:41 EDT Tel , Service support ,
--- NOTE | 2020-03-06 08:00 | MRI_ITS ---
STUDY: MRA NECK WITHOUT CONTRAST REASON FOR EXAM: Female, 79 years old. cva, n/t left upper extr, memory issues TECHNIQUE: Source images were obtained, MIPs were performed. The study was performed unenhanced. COMPARISON: None. FINDINGS: RIGHT CAROTID ARTERIES: Normal right common carotid artery (CCA). There is mild atherosclerotic plaque formation with minimal narrowing of the right carotid bulb. There is mild atherosclerotic plaque formation of the origin of the right internal carotid artery with less than 50% cross sectional diameter stenosis. Normal visualized cervical portion of the right internal carotid artery. Normal origin of the right external carotid artery (ECA). LEFT CAROTID ARTERIES: Normal left common carotid artery (CCA). Normal left common carotid bulb. There is mild atherosclerotic plaque formation of the origin of the left internal carotid artery with less than 50% cross sectional diameter stenosis. Normal visualized cervical portion of the left internal carotid artery. Normal origin of the left external carotid artery (ECA). VERTEBRAL ARTERIES: Normal antegrade flow within the bilateral vertebral artery without a hemodynamically significant stenosis. MRI/MRA Neck without Contrast IMPRESSION: Mild atherosclerotic plaque formation of the origin of the right and left internal carotid artery with less than 50% cross sectional diameter stenosis. There is mild atherosclerotic plaque formation with minimal narrowing of the right carotid bulb. Electronically Signed: Lars Trujillo, at 12:48 EDT Tel , Service support ,
[2020-03-06 08:29] LABS: Absolute Neutrophil Count 2.5 X10^3/uL (2.0-7.7); Basophil# 0.03 X10^3/uL; Basophil% 0.7 % (0-1); Eosinophil# 0.06 X10^3/uL; Eosinophils% 1.4 % (0-5); Hemoglobin 15.5 g/dL (12.0-15.0); Lymphocyte % 28.7 % (19-41); Mean Corp Hgb Conc 35.2 g/dL (32-36); Mean Corpuscular Hgb 32.9 pg (27.0-32.0); Mean Corpuscular Volume 93.4 fL (81-99); Mean Platelet Vol. 9.5 fl (6.2-12.0); Monocyte# 0.37 X10^3/uL; Monocyte% 8.9 % (0-10); NRBC Flagged by Analyzer 0 % (0-5); Neutrophil % 59.8 % (47-70); Platelet Count 144 K/mm3 (150-450); RBC Distribution Width CV 12.6 % (11.6-14.6); RBC Distribution Width SD 42.7 fl (35.1-43.9); Red Blood Count 4.71 M/mm3 (4.2-5.4); White Blood Count 4.2 K/mm3 (4.4-11.0)
[2020-03-06 09:10] LABS: Bedside Glucose 124 mg/dL (70-110)
[2020-03-06] MEDS: Aspirin 81 MG TAB.CHEW PO (10:06)
[2020-03-06] MEDS: Enoxaparin 40 MG/0.4 ML Syringe SC (10:06)
--- NOTE | 2020-03-06 11:26 | CASEMGMT ---
Addendum entered by Faith Spain 03/06/20 13:34: Received call back from Swathi with Adult Protective Services. Report completed. Swathi provided with contact information for patient's HPOA/daughter and son. Swathi to follow up. Original Note: SOCIAL WORK Call to Adult Protective Services to complete report regarding concerns for patient due to hoarding behaviors and dementia. No answer, left message with this worker's call back information. Baldemar Spain, MOLDING SANDER, ASSOCIATE ACCOUNT MANAGER
--- NOTE | 2020-03-06 11:38 | CASEMGMT ---
Addendum entered by Chyna Hoff 03/06/20 13:20: Pt's son Evens is here to visit. He states is going to go speak w/his mother and explain to her that she needs to get out of her home so he can clean it. Son showed this SW the pictures of the home, there are many items on the counters and on the floor throughout the home, much of what Evens showed this SW were pictures of food. He explains that this behavior started after her , which was about four years ago. SW explained that pt will likely be discharged today, and explained that he and his sister(pt's daughter) can follow up w/APS. SW also explained that they also may consider getting guardianship of pt, and that if they would like to do this, [facility]PS may be able to help. SW explained there is a form pt's physician would need to complete called a Statement of Expert Evaluation, stating the pt is not capable of making decisions, and then this is taken to probate court. The court then decides and appoints a guardian. Son Evens explains that it would likely be his sister, he is already caring for his 90 year old mother in law who also has memory issues. Evens explained he was going to speak w/pt and let this SW know how it goes. He states the home smells. He confirmed pt has two cats, and states she cares more about the animals than the people in her life. He said that she cleans the litter boxes occasionally. Son states the person who gave her the cats would be willing to take them back. SW then spoke w/Evens after he spoke w/pt. Evens states that he and his mother agreed to him taking her to assisted livings to look at, and that she needs to decide by May 13 where she wants to go. Evens explained to her she needs to move out for at least 6 months so he can clean the home. He explained he can't get any home care in at present as they will not go in due to the condition of the home. She told him she is worried about the cats. WILMAN explained some assisted livings will allow a cat; he states he had actually told the pt this. SW offered support to son. SW gave son the number to APS, did let him know WILMAN Cuevas in the ED is calling and they may call him. SW also gave son a copy of the Statement of Expert Evaluation form for his information. Son thanked SW. He will take pt home when discharged. He confirmed her car is at the urgent care and they will get her car home. Plan: Home, son plans to take pt to see assisted living facilities and help her move into one, and APS has been called. THOMAS Beck Original Note: SW met w/pt in room in regard to prior level of care and discharge plan. PCP: Dr. Villalta Specialists: Pt reports none Pharmacy: [facility] Insurance: [employer] Medicare Next of Kin: Pt informed SW has daughter in [place], son in [place]. Living arrangements: Pt lives alone in a bilevel home, states is home alone and manages fine. She states drives, does her own meds, does her own shopping, cleans. She states she cooks or goes out for meals. Pt informed SW in the span of about 5 minutes that she informed this SW she lives alone and cares for herself, and that her four years ago. DME: None Assessment/Plan: Pt states will go home, denies need for going to long term or assisted living. SW asked where she was, she stated, [place]. SW asked the date, she said Early February. SW asked if her children are concerned about her, she states she did not think so. She states multiple times she drove here and is anxious to get home and feed her cats. SW explained that the physician may not allow her to drive home. SW did ask pt why she came in, she states she had a question and wanted to get it checked out. Pt was not able to really say what was wrong however, stated that it wasn't like a pain. Pt not able to really state further why she is here. SW will follow up w/children shortly. THOMAS Beck
[2020-03-06 12:16] LABS: Bedside Glucose 245 mg/dL (70-110)
--- NOTE | 2020-03-06 14:55 | DCINST_ITS ---
- Discharge Diagnoses Current Active Problems: Current Active and Chronic Problems TIA (transient ischemic attack) (Acute) Paresthesia of left upper extremity (Acute) HLD (hyperlipidemia) (Chronic) Dementia (Chronic) You will use the following diet at home:: Calorie/Carbohydrate Controlled (specify 1200, 1400, etc) - 1800 whit Your food should be the consistency of: Regular Your liquids should be the consistency of: Regular/Thin Discharge Activity: Return to Normal Activity Weight Bearing Status: Full weight bearing Additional Instructions: INCREASE ARICEPT TO 10 MG AT BEDTIME DAILY Allergies/Adverse Reactions: Allergies succinylcholine [Succinylcholine] Allergy (Severe, Verified 03/05/20 16:52) Other PARALYZED levofloxacin [From Levaquin] Allergy (Mild, Verified 03/05/20 16:52) Rash Sulfa (Sulfonamide Antibiotics) Allergy (Mild, Verified 03/05/20 16:52) Rash lorazepam Adverse Reaction (Intermediate, Verified 03/05/20 16:52) Other HALLUCINATION atorvastatin [From Lipitor] Adverse Reaction (Verified 03/05/20 16:52) muscle aches Medications to take at Discharge metFORMIN HCl [Glucophage] 500 mg PO BIDCM 04/12/13 Donepezil HCl [Aricept] 10 mg PO QHS #30 tab 03/06/20 The following prescriptions were given: Donepezil HCl [Aricept] 10 mg PO QHS #30 tab Transmission Status: Pending to [facility]/pharmacy #[id number] Primary Care Physician: Melvi Villalta MD [Primary Care Provider] - Please follow up with your Primary Care Physician in: IN 1-2 WEEKS Test Results: Test results from this visit will be discussed in further detail at your follow- up appointment, if applicable.
--- NOTE | 2020-03-06 18:34 | DS.PCM_ITS ---
Discharge Date and Diagnosis Date of Admission: 03/05/20 Date of Discharge: 03/06/20 - Primary Discharge Diagnosis Acute Problems: #1 left arm paresthesias-etiology unclear #2 Alzheimer's dementia #3 type 2 diabetes - Secondary Discharge Diagnosis Chronic Problems: Chronic Problems Hypothyroidism (Chronic) Hypertension (Chronic) GERD (gastroesophageal reflux disease) (Chronic) Autoimmune disorder (Chronic) HLD (hyperlipidemia) (Chronic) Dementia (Chronic) Hospital Course and Treatment Operations: None Procedures: None Summary of Care Provided: The patient is a 79 year old F who was seen in the emergency room at [facility] with chief complaint of tingling in her left arm. An adequate history was difficult to obtain due to the patient having an obvious cognitive impairment. Work-up in the emergency room including a CT of the brain, chest x-ray, and tox screens were unremarkable. TSH was 4.99 but T4 level was normal. Patient was placed in observation status on PCU and underwent an MRI of the brain which showed no evidence of ischemic stroke, MRA of the head and neck was also performed which showed no evidence of significant occlusive disease, patient also had a MRI of her cervical spine which showed degenerative disc disease of the cervical spine on many levels. surgical services tech had multiple discussions with the patient's family, patient did not seem to be an immediate threat to herself but the family preferred to take the patient home and make arrangements for the patient to ultimately be placed in assisted living. Patient refused placement in a fpc home. Patient was seen by PT and OT and did not feel that she had skilled needs. On 03/06/2020, patient was seen and examined: On examination she appeared her stated age, she had obvious cognitive impairment with short-term memory deficits, she does not appear to be in any distress. Vital signs as documented. Skin warm and dry and without overt rashes. Neck without JVD, thyroid appears normal, trachea is midline, neck is supple. Lungs clear, normal air movement was noted. Heart exam notable for regular rhythm, normal sounds and absence of murmurs, rubs or gallops. Abdomen unremarkable and without evidence of organomegaly, masses, or abdominal aortic enlargement, bowel sounds are present in all 4 quadrants, no abdominal tenderness was noted. Extremities nonedematous, no cyanosis was noted, no clubbing was noted. Neuro: Cranial nerves II through XII are grossly intact, no focal motor deficits were noted, sensation to light touch and pinprick is intact, motor exam 5/5 throughout. Psych: Patient is alert, she did not appear to be anxious or depressed, there is obvious moderate confusion noted to be present On 03/06/2020, patient was seen and examined felt to be in stable condition for discharge home - Physical Exam Vitals/I&O's: Vital Signs Temp Pulse Resp BP Pulse Ox 98.0 F 82 18 155/85 H 96 03/06/20 14:00 03/06/20 14:51 03/06/20 14:00 03/06/20 14:00 03/06/20 14:00 Oxygen Delivery Method Room Air Weight: 54.8 kg Body Mass Index (BMI) 21.4 Finger Stick Blood Glucose 145 Intake and Output for Last 24 Hours 03/04/20 03/05/20 03/06/20 23:59 23:59 23:59 Intake Total 418.33 / 418.33 1868.34 / 1868.34 Balance 418.33 / 418.33 1868.34 / 1868.34 Laboratory Results 03/05/20 17:15: Magnesium 2.2, Free T4 0.94 03/05/20 17:15: Hemoglobin A1c 6.0 H 03/05/20 17:50: COVID-19 (GOVIND) Negative 03/05/20 18:47: Urine Opiates Screen NEGATIVE, Urine Methadone Screen NEGATIVE, Ur Barbiturates Screen NEGATIVE, Ur Phencyclidine Scrn NEGATIVE, Ur Amphetamines Screen NEGATIVE, U Methamphetamin-MDMA NEGATIVE, U Benzodiazepines Scrn NEGATIVE, Urine Cocaine Screen NEGATIVE, U Cannabinoids Screen NEGATIVE, Ur Drug Screen Comment 03/05/20 18:47: Urine Color Yellow, Urine Clarity Clear, Urine pH 6.5, Ur Specific [place] 1.010, Urine Protein Negative, Urine Glucose (UA) Normal, Urine Ketones Negative, Urine Occult Blood Negative, Urine Nitrite Negative, Urine Bilirubin Negative, Urine Urobilinogen Normal, Ur Leukocyte Esterase Negative, Urine RBC 0 SEEN, Urine WBC 0 SEEN, Ur Squamous Epith Cells 0 SEEN, Urine Bacteria 0 SEEN, Urine Mucus 0 SEEN 03/05/20 21:30: POC Glucose 171 H 03/06/20 05:52: WBC 4.2 L, RBC 4.71, Hgb 15.5 H, Hct 44.0, MCV 93.4, MCH 32.9 H, MCHC 35.2, RDW Std Deviation 42.7, RDW Coeff of Thiago 12.6, Plt Count 144 L, MPV 9.5, Immature Gran % (Auto) 0.500, Neut % (Auto) 59.8, Lymph % (Auto) 28.7, [place] % (Auto) 8.9, Eos % (Auto) 1.4, Baso % (Auto) 0.7, Absolute Neuts (auto) 2.5, Absolute Lymphs (auto) 1.20, Total Counted 100, Neutrophils % (Manual) 58, Lymphocytes % (Manual) 37, Monocytes % (Manual) 4, Eosinophils % (Manual) 1, Nucleated RBC % 0, Differential Comment MANUAL DIFF, Reactive Lymphocytes 1+, Platelet Estimate ADEQUATE, RBC Morphology NORM C+C 03/06/20 05:52: Sodium 139, Potassium 3.8, Chloride 107, Carbon Dioxide 28.0, Anion Gap 4 L, BUN 11, Creatinine 0.80, Estim Creat Clear Calc 47.17, Est GFR (MDRD) Af Amer 89, Est GFR (MDRD) Non-Af 73, BUN/Creatinine Ratio 13.7, Glucose 120 H, Calcium 9.2, Total Bilirubin 0.60, AST 11 L, ALT 14, Alkaline Phosphatase 57, Total Protein 6.5, Albumin 3.6, Globulin 2.9, Albumin/Globulin Ratio 1.2, Triglycerides 67, Cholesterol 230 H, LDL Cholesterol 161 H, VLDL Cholesterol 13, HDL Cholesterol 56 03/06/20 06:34: POC Glucose 124 H 03/06/20 11:33: POC Glucose 245 H Discharge Activity: Return to Normal Activity Weight Bearing Status: Full weight bearing Home Medications: Medications to take at Discharge metFORMIN HCl [Glucophage] 500 mg PO BIDCM 04/12/13 Donepezil HCl [Aricept] 10 mg PO QHS #30 tab 03/06/20 Following Prescriptions Were Given to Patient: Donepezil HCl [Aricept] 10 mg PO QHS #30 tab Transmission Status: Received by [facility]/pharmacy #[id number] Primary Care Physician: Melvi Villalta MD [Primary Care Provider] - Please follow up with your Primary Care Physician in: IN 1-2 WEEKS Disposition: Home Minutes spent on discharge:: 30 Patient Condition:: Stable Medical Necessity - Tobacco Use Smoking Status: Never smoker Tobacco Use: Non-smoker Meaningful Use Info Meaningful Use Diagnoses (Choose all that apply): None applicable Inpatient E&M: 94397 Disch Hosp
== END 2020-03-06 14:57 | disposition home or self-care (01) ==
LOC: ED 17:16 → PCU 20:00
PROVIDERS: Admitting Provider Family Medicine; Emergency Provider Emergency Medicine; PCP Internal Medicine; Visit Provider Internal Medicine
DX: R20.2 Paresthesia of skin (principal); E11.9 Type 2 diabetes mellitus without complications; G30.9 Alzheimer's disease, unspecified; F02.80 Dementia in other diseases classified elsewhere, unspecified severity, without behavioral disturbance, psychotic disturbance, mood disturbance, and anxiety; E78.5 Hyperlipidemia, unspecified; I10 Essential (primary) hypertension; E03.9 Hypothyroidism, unspecified; K21.9 Gastro-esophageal reflux disease without esophagitis; F41.9 Anxiety disorder, unspecified; J45.909 Unspecified asthma, uncomplicated; F32.9 Major depressive disorder, single episode, unspecified; Z79.899 Other long term (current) drug therapy; Z79.84 Long term (current) use of oral hypoglycemic drugs; Z79.51 Long term (current) use of inhaled steroids
CPT/HCPCS: 70450; 70544; 70547; 70551; 71045; 72141; 80053; 80061; 80307; 80320; 81001; 82962; 83036; 83735; 84439; 84443; 84484; 85025; 87635; 92610; 93005; 96360; 96361; 96372; 97162; 97166; 97802; 99218; 99251; 99284; J7030; G0378; G0463; G0480; U0003

== ENCOUNTER 2020-10-17 15:17 | Outpatient (RCR) | payer MEDICARE, SELFPAY ==
[2020-03-06 07:44] VITALS: BMI 21.4
== END 2020-12-18 23:59 ==
LOC: IMMUN 15:17
PROVIDERS: PCP Internal Medicine; Referring Provider Family Medicine; Visit Provider Family Medicine
DX: Z23 Encounter for immunization (principal)
CPT/HCPCS: 0001A; 0002A; 91300

== ENCOUNTER 2021-12-15 10:07 | Emergency (ER) | payer MEDICARE, SELFPAY ==
[2021-12-15 10:08] VITALS: BP 192/92; BP 194/88; PULSE 72; PULSE 75; RESP 15; RESP 16; TEMP 36.4; O2SAT 94; O2SAT 98; BMI 19.9
[2021-12-15 10:16] VITALS: BMI 19.9
--- NOTE | 2021-12-15 10:16 | EKG12_ITS ---
Test Reason : NEURO Blood Pressure : / mmHG Vent. Rate : 067 BPM Atrial Rate : 067 BPM P-R Int : 152 ms QRS Dur : 086 ms QT Int : 380 ms P-R-T Axes : 044 -48 052 degrees QTc Int : 401 ms Sinus rhythm with marked sinus arrhythmia Left axis deviation Septal infarct , age undetermined Abnormal ECG When compared with ECG of 05-MAR-2020 17:11, Premature atrial complexes are no longer Present Septal infarct is now Present Confirmed by SONJA PALMER, ZANE ([id number]), deputy editor in chief WINTER LINARES ([id number]) on 12/19/2021 9:02:25 AM Referred By: FARHANA Confirmed By:ZANE CASILLAS MD
--- NOTE | 2021-12-15 10:16 | CT_ITS ---
STUDY: CTA HEAD AND NECK WITH CONTRAST REASON FOR EXAM: Female, 81 years old. paresthesias -- hx of asthma, htn RADIATION DOSAGE (If Supplied By Facility): CTDIvol = ( 27.54 ) mGy, DLP = ( 1337.67 ) mGycm TECHNIQUE: CT angiography was performed with a multi-detector CT scanner. Data acquisition was obtained from the skull base through the vertex following intravenous administration of IV 75mL [id number]-[id number]. MIP images were reconstructed from the axial data set. Post-processing of the angiographic images was performed, with multiplanar reformation and 3D reconstruction. Individualized dose optimization techniques were used for this CT. COMPARISON: No relevant priors. FINDINGS: Normal bilateral petrous carotid arteries. Normal right cavernous carotid artery with a normal supraclinoid bifurcation. Normal left cavernous carotid artery with a normal supraclinoid bifurcation. Normal right A1 segments of the anterior cerebral artery. Normal left A1 segments of the anterior cerebral artery. Normal intact anterior communicating artery (ACOM). Normal bilateral A2 segments of the anterior cerebral arteries. Normal right M1 and M2 segments of the middle cerebral arteries, with a normal M1 bifurcation. Normal left M1 and M2 segments of the middle cerebral arteries, with a normal M1 bifurcation. There is a persistent origin of the right posterior cerebral artery with absence of the posterior communicating artery (PCOM). Normal left posterior communicating artery (PCOM). Normal bilateral vertebral arteries. Normal basilar artery with a normal basilar bifurcation. The visualized bilateral superior cerebellar (SCA) arteries are normal. Normal bilateral P1, P2 and visualized P3 segments of the posterior cerebral arteries. There is no demonstrated aneurysm of the [place] of [place]. There is no demonstrated abnormality of the visualized brain. AORTIC ARCH: Normal visualized aortic arch. Normal origins of the brachiocephalic, left common carotid, and left subclavian arteries. RIGHT CAROTID ARTERIES: Normal right common carotid artery (CCA). Normal right common carotid bulb. Normal origin of the right internal carotid (ICA) artery without a hemodynamically significant stenosis. Normal visualized cervical portion of the right internal carotid artery. Normal origin of the right external carotid artery (ECA). LEFT CAROTID ARTERIES: Normal left common carotid artery (CCA). There is mild atherosclerotic plaque formation with minimal narrowing of the left carotid bulb. Normal origin of the left internal carotid (ICA) artery without a hemodynamically significant stenosis. Normal visualized cervical portion of the left internal carotid artery. Normal origin of the left external carotid artery (ECA). VERTEBRAL ARTERIES: Normal bilateral vertebral arteries. CT/CTA Head AND Neck W/ Contrast IMPRESSION: Normal CTA Head and neck with contrast. Electronically Signed: Ger Reynoso MD at 11:55 EDT ,
[2021-12-15 10:18] LABS: Bedside Glucose 118 mg/dL (74-106)
--- NOTE | 2021-12-15 10:23 | EX.ED.DYSGE1 ---
HPI History of Present Illness Chief Complaint: Neuro S/Sx Detail of Chief Complaint: Left arm numbness Informant: patient Onset/Context/Timing Onset: Today Narrative Narrative: Patient presents with friend from [facility] secondary to left arm numbness. She states she felt well when she went to [facility] this morning. Approximately 1 hour ago or 9 AM she developed tingling sensation in her left arm. Patient does have history of mild dementia which makes obtaining history difficult. She states that she is on no medications. We were able to reach her daughter on the phone who confirmed her mother is on no medications. On review of records patient was admitted here in February 2020 with left arm paresthesias that been ongoing for months and attributed to her high blood pressure. At that time she refused senior living placement and was discharged to home with family stating that they were going to make arrangements to have her placed in assisted living. When this visit is brought up to the patient she does not remember it. [facility] Medical History Dementia Home Medications metformin 500 mg PO BIDCM 04/12/13 [History Last Taken 03/05/20] donepezil 10 mg PO QHS #30 tab 03/06/20 [Rx Last Taken Unknown] Allergy/AdvReac Type Severity Reaction Status Date / Time succinylcholine Allergy Severe Other Verified 03/05/20 16:52 [Succinylcholine] levofloxacin [From Levaquin] Allergy Mild Rash Verified 03/05/20 16:52 Sulfa (Sulfonamide Allergy Mild Rash Verified 03/05/20 16:52 Antibiotics) lorazepam AdvReac Intermediate Other Verified 03/05/20 16:52 atorvastatin [From Lipitor] AdvReac muscle Verified 03/05/20 16:52 aches Social History Smoking Status: Never smoker ROS ROS ED Constitutional Constitutional ED: Denies chills or fever(s) Eyes Eyes: Denies change in vision ENT ENT ED: Denies sore throat Cardiovascular Cardiovascular: Denies chest pain or palpitations Respiratory/Chest Respiratory/Chest: Denies cough or dyspnea Gastrointestinal Gastrointestinal: Denies abdominal pain, diarrhea, nausea or vomiting Genitourinary Genitourinary ED: Denies dysuria Musculoskeletal Musculoskeletal: Denies back pain or neck pain Integumentary Denies rash Neurologic Neurologic: Reports paresthesias LUE; Denies headache(s) or weakness Allergic/Immunologic Allergic/Immunologic ED: Denies urticaria EXAM Physical Exam Const Vital Signs: 12/15/21 10:08 12/15/21 11:27 12/15/21 12:24 Temperature 97.5 F L Temperature Source Temporal Pulse Rate 72 76 72 Respiratory Rate 16 14 14 Blood Pressure 194/88 H 162/82 H 146/76 H Blood Pressure Mean 123 108 99 Pulse Ox 94 98 96 Oxygen Delivery Method Room Air Room Air Room Air Positive well nourished and well developed General Appearance ED: well developed HEENT Reports moist mucous membranes Eyes PERRL and EOMs intact bilaterally Neck no lymphadenopathy and supple Lymph Lymphatic: other Chest Wall inspection of chest normal and palpation of chest normal Resp normal respiratory effort and clear to auscultation bilaterally Cardio Rate: other Other Details: Slightly irregular GI normal to inspection, nondistended, normoactive bowel sounds and non-tender Palpation: soft Extremity normal to inspection Neuro oriented x3 Neuro Narrative: NIH equals 0 at the time of my exam. Sensorium / Orientation: alert Psych mental status grossly normal Skin no rashes or lesions noted MDM MDM MDM Narrative Medical decision making narrative: Patient's NIH is 0 on arrival and stroke team was not initiated. I was able to review records and saw the patient had been here previously with similar symptoms that was related to her high blood pressure. Her MRIs were negative at that time. EKG, lab work, CTA of the head and neck obtained. Lab Data Attestation: I reviewed the patient's lab results. Labs: Laboratory Results - last 24 hr 12/15/21 12/15/21 12/15/21 10:08 10:16 10:16 WBC 5.7 RBC 4.58 Hgb 14.8 Hct 42.5 MCV 92.8 MCH 32.3 H MCHC 34.8 RDW Std Deviation 43.8 RDW Coeff of Thiago 12.9 Plt Count 143 L MPV 9.1 Immature Gran % (Auto) 0.700 Neut % (Auto) 70.8 H Lymph % (Auto) 19.9 [place] % (Auto) 7.4 Eos % (Auto) 0.7 Baso % (Auto) 0.5 Absolute Neuts (auto) 4.0 Absolute Lymphs (auto) 1.13 Nucleated RBC % 0 Sodium 133 L Potassium 3.7 Chloride 101 Carbon Dioxide 27.0 Anion Gap 5 BUN 13 Creatinine 0.98 Estim Creat Clear Calc 35.61 Est GFR (MDRD) Af Amer 70 Est GFR (MDRD) Non-Af 58 L BUN/Creatinine Ratio 13.3 Glucose 118 H Calcium 9.1 Total Bilirubin 0.60 Direct Bilirubin 0.17 AST 12 L ALT 16 Alkaline Phosphatase 58 Troponin I High Sens 5 Total Protein 6.9 Albumin 4.0 Globulin 2.9 TSH 8.57 H Free T4 Total T3 Urine Color Urine Clarity Urine pH Ur Specific [place] Urine Protein Urine Glucose (UA) Urine Ketones Urine Occult Blood Urine Nitrite Urine Bilirubin Urine Urobilinogen Ur Leukocyte Esterase Urine RBC Urine WBC Ur Squamous Epith Cells Urine Bacteria Urine Mucus POC Glucose 118 H 12/15/21 12/15/21 12/15/21 10:16 10:16 11:38 WBC RBC Hgb Hct MCV MCH MCHC RDW Std Deviation RDW Coeff of Thiago Plt Count MPV Immature Gran % (Auto) Neut % (Auto) Lymph % (Auto) [place] % (Auto) Eos % (Auto) Baso % (Auto) Absolute Neuts (auto) Absolute Lymphs (auto) Nucleated RBC % Sodium Potassium Chloride Carbon Dioxide Anion Gap BUN Creatinine Estim Creat Clear Calc Est GFR (MDRD) Af Amer Est GFR (MDRD) Non-Af BUN/Creatinine Ratio Glucose Calcium Total Bilirubin Direct Bilirubin AST ALT Alkaline Phosphatase Troponin I High Sens Total Protein Albumin Globulin TSH Free T4 0.96 Total T3 1.02 Urine Color Straw Urine Clarity Clear Urine pH 7.0 Ur Specific [place] 1.005 Urine Protein Negative Urine Glucose (UA) Normal Urine Ketones Negative Urine Occult Blood Negative Urine Nitrite Negative Urine Bilirubin Negative Urine Urobilinogen Normal Ur Leukocyte Esterase Negative Urine RBC 0 SEEN Urine WBC 0 SEEN Ur Squamous Epith Cells 0 SEEN Urine Bacteria 0 SEEN Urine Mucus 0 SEEN POC Glucose Radiography Chest X-Ray - ED: 1 View, Read by ED Physician and Chronic Changes Diagnostic Testing: Clinical Impression(s) from Imaging Studies Head/Neck CTA 12/15/21 10:16 IMPRESSION: Normal CTA Head and neck with contrast. Electronically Signed: Ger Reynoso MD at 11:55 EDT , Chest X-Ray 12/15/21 11:09 IMPRESSION: Normal x-ray examination of the chest. Electronically Signed: Ger Reynoso MD at 11:32 EDT , EKG Initial EKG: Attestation: I personally reviewed and interpreted this EKG as follows: Interpretation: Sinus Rhythm (Sinus at 67 with no acute ischemia.) Treatment and Re-Evaluation Narrative: Repeat evaluation patient has no significant complaints. Blood pressure is improved to 146/76. Her NIH remains 0. Lab work is largely unremarkable. Her TSH is elevated at 8.57, however her total T3 and free T4 are both normal. Urinalysis is negative. CTA of the head and neck normal. I spoke with the patient's daughter, Yara. She is comfortable with the patient's work-up at this time and does remember prior admission for similar with negative work-up. She is comfortable with the patient being discharged to home. Test results are discussed with the patient this is her request as well. She will be discharged with return instructions. Discharge Plan Triage Chief Complaint: Neuro S/Sx ED Provider: Joana Collins Dx/Rx/DC Orders Clinical Impression: Arm paresthesia, left Instructions: ED Paraesthesias Prescriptions: No Action metformin 500 MG tablet 500 mg PO BIDCM RF: 0 donepezil 10 MG tablet 10 mg PO QHS Qty: 30 RF: 0 Primary Care Provider: Melvi Villalta Referrals: Melvi Villalta MD [Primary Care Provider] - 1-2 Weeks Disposition Disposition: Home, Self Care
[2021-12-15 10:25] LABS: Absolute Lymphocyte Count 1.13 X10^3/uL (0.83-4.51); Basophil# 0.03 X10^3/uL; Basophil% 0.5 % (0-1); Eosinophil# 0.04 X10^3/uL; Eosinophils% 0.7 % (0-5); Hematocrit 42.5 % (37-47); Hemoglobin 14.8 g/dL (12.0-15.0); Lymphocyte # 1.13 X10^3/ul (0.83-4.51); Lymphocyte % 19.9 % (19-41); Mean Corp Hgb Conc 34.8 g/dL (32-36); Mean Corpuscular Hgb 32.3 pg (27.0-32.0); Mean Corpuscular Volume 92.8 fL (81-99); Mean Platelet Vol. 9.1 fl (6.2-12.0); Monocyte# 0.42 X10^3/uL; Monocyte% 7.4 % (0-10); NRBC Flagged by Analyzer 0 % (0-5); Neutrophil # 4.02 X10^3/uL (2.7-7.7); Neutrophil % 70.8 % (47-70); Platelet Count 143 K/mm3 (150-450); RBC Distribution Width CV 12.9 % (11.6-14.6); RBC Distribution Width SD 43.8 fl (35.1-43.9); Red Blood Count 4.58 M/mm3 (4.2-5.4); White Blood Count 5.7 K/mm3 (4.4-11.0)
--- NOTE | 2021-12-15 10:25 | ED.RN ---
PER DR MONDRAGON NO NEED TO CONTINUE [facility] OR CALL STROKE ALERT
[2021-12-15 10:55] LABS: AST(SGOT) 12 U/L (15-37); Alanine Aminotransfer ALT/SGPT 16 U/L (13-56); Alkaline Phosphatase 58 U/L (45-117); Anion Gap 5 (5-15); BUN 13 mg/dL (7-18); BUN/Creat Ratio 13.3 RATIO (10-20); Bilirubin, Direct 0.17 mg/dL (0.00-0.30); Calcium,Total 9.1 mg/dL (8.5-10.1); Chloride 101 mmol/L (98-107); Creatinine, Serum 0.98 mg/dL (0.55-1.02); EST Glomerular Filtration Rate 58 mL/min (>60); Est Glom Filt Rate - Afr Amer 70 mL/min (>60); Estimated Creatinine Clearance 35.61 ml/min; Globulin 2.9 g/dL (2.2-4.2); Glucose 118 mg/dL (74-106); Potassium 3.7 mmol/L (3.5-5.1); Protein, Total 6.9 g/dL (6.4-8.2); Sodium Level 133 mmol/L (136-145); Thyroid Stim Hormone (TSH) 8.57 uIU/mL (0.358-3.74); Troponin-I HS 5 pg/mL (3.0-54.0)
--- NOTE | 2021-12-15 11:09 | RAD_ITS ---
STUDY: X-RAY CHEST REASON FOR EXAM: Female, 81 years old. sob TECHNIQUE: Single AP portable view of the chest. COMPARISON: 03/05/2020 FINDINGS: The lungs are clear and expanded. There is no demonstrated pleural abnormality. Normal size heart. Normal mediastinum and jennie. Normal visualized pulmonary arteries. Normal visualized aortic arch and descending thoracic aorta. Normal visualized thoracic spine. Normal visualized ribs, clavicles, and shoulders. There is no demonstrated abnormality of the visualized soft tissue structures of the upper abdomen. RAD/Chest 1 View (Portable) IMPRESSION: Normal x-ray examination of the chest. Electronically Signed: Ger Reynoso MD at 11:32 EDT ,
[2021-12-15 11:27] VITALS: BP 162/82; PULSE 76; RESP 14; O2SAT 98
[2021-12-15 11:45] LABS: Bacteria 0 SEEN /hpf (None Seen); Mucous, Urine 0 SEEN /hpf (<or=2+); Red Blood Cells-Urine 0 SEEN /hpf (0-5); Squamous Epithelial Cells - UA 0 SEEN /hpf (5-10); White Blood Cells 0 SEEN /hpf (0-5)
[2021-12-15 11:46] LABS: Color, Urine Straw (Yellow); Glucose, Dipstick Normal (Normal); Ketone-Dipstick Negative (Negative); Leukocyte Esterase-Dipstick Negative /ul (Negative); Nitrite-Dipstick Negative (Negative); Occult Blood-Urine Negative /ul (Negative); Protein-Dipstick Negative (Negative); Specific Gravity, Urine 1.005 (1.002-1.030); Urine Bilirubin Dipstick Negative (Negative); Urine Clarity Clear (Clear); Urine Urobilinogen Normal (Normal)
[2021-12-15 11:57] LABS: T4 Free Direct 0.96 ng/dL (0.76-1.46)
[2021-12-15 12:22] LABS: T3 Total - Triiodothyronine 1.02 ng/mL (0.6-1.81)
[2021-12-15 12:24] VITALS: BP 146/76; PULSE 72; RESP 14; O2SAT 96
== END 2021-12-15 12:46 | disposition home or self-care (01) ==
PROVIDERS: Emergency Provider Emergency Medicine; PCP Internal Medicine; Visit Provider Emergency Medicine
DX: R20.2 Paresthesia of skin (principal); F03.90 Unspecified dementia, unspecified severity, without behavioral disturbance, psychotic disturbance, mood disturbance, and anxiety; R03.0 Elevated blood-pressure reading, without diagnosis of hypertension
CPT/HCPCS: 70496; 70498; 71045; 80048; 80076; 81001; 82962; 84439; 84443; 84480; 84484; 85025; 93005; 99284; Q9967

== ENCOUNTER → 2022-10-25 | Outpatient (REF) | payer MEDICARE, SELFPAY ==
[2022-10-25 23:12] LABS: Mucous, Urine 0 SEEN /hpf (<or=2+); Red Blood Cells-Urine 0 SEEN /hpf (0-5)
[2022-10-25 23:20] LABS: Glucose, Dipstick Normal (Normal); Ketone-Dipstick Negative (Negative); Leukocyte Esterase-Dipstick 25 /ul (Negative); Nitrite-Dipstick Negative (Negative); Occult Blood-Urine Negative /ul (Negative); Protein-Dipstick Negative (Negative); Urine Bilirubin Dipstick Negative (Negative); Urine Urobilinogen Normal (Normal); Urine pH 6.5 (5.0 - 8.0)
[2022-10-25 23:21] LABS: Bacteria 1+ /hpf (None Seen); Color, Urine Yellow (Yellow); Squamous Epithelial Cells - UA 0-5 SEEN /hpf (5-10); Urine Clarity Clear (Clear); White Blood Cells 5-10 SEEN /hpf (0-5)
== END ==
PROVIDERS: Visit Provider Internal Medicine
DX: R41.82 Altered mental status, unspecified (principal)
CPT/HCPCS: 81001; 87086; 87088

== ENCOUNTER → 2022-11-19 | Outpatient (REF) | payer MEDICARE, SELFPAY ==
[2022-11-19 09:26] LABS: Hemoglobin 15.3 g/dL (12.0-15.0); Mean Corpuscular Hgb 31.5 pg (27.0-32.0); Mean Corpuscular Volume 92.8 fL (81-99); Mean Platelet Vol. 9.6 fl (6.2-12.0); Platelet Count 164 K/mm3 (150-450); RBC Distribution Width CV 12.9 % (11.6-14.6); Red Blood Count 4.85 M/mm3 (4.2-5.4); White Blood Count 5.4 K/mm3 (4.4-11.0)
[2022-11-19 09:48] LABS: ALB/GLOB Ratio 1.2 RATIO (0.9-2.4); AST(SGOT) 10 U/L (15-37); Alanine Aminotransfer ALT/SGPT 16 U/L (13-56); Albumin, Serum 3.7 g/dL (3.2-5.0); Alkaline Phosphatase 60 U/L (45-117); Anion Gap 6 (5-15); BUN 16 mg/dL (7-18); BUN/Creat Ratio 18.2 RATIO (10-20); Calcium,Total 9.7 mg/dL (8.5-10.1); Chloride 103 mmol/L (98-107); Creatinine, Serum 0.88 mg/dL (0.55-1.02); EST Glomerular Filtration Rate 66 mL/min (>60); Est Glom Filt Rate - Afr Amer 79 mL/min (>60); Globulin 3.1 g/dL (2.2-4.2); Glucose 173 mg/dL (74-106); Potassium 4.3 mmol/L (3.5-5.1); Protein, Total 6.8 g/dL (6.4-8.2); Sodium Level 136 mmol/L (136-145); Thyroid Stim Hormone (TSH) 8.29 uIU/mL (0.358-3.74)
[2022-11-19 10:24] LABS: Vitamin B12 259 pg/mL (211-911)
== END ==
LOC: OLS.BROOKB 05:00
PROVIDERS: Visit Provider Internal Medicine
DX: F03.90 Unspecified dementia, unspecified severity, without behavioral disturbance, psychotic disturbance, mood disturbance, and anxiety (principal); R60.9 Edema, unspecified; Z79.899 Other long term (current) drug therapy
CPT/HCPCS: 36415; 80053; 82607; 82746; 84443; 85027

== ENCOUNTER → 2022-11-26 | Outpatient (REF) | payer MEDICARE, SELFPAY ==
[2022-11-26 09:40] LABS: Hemoglobin A1c 7.1 % (3.8-5.6)
[2022-12-02 12:08] LABS: Methylmalonic Acid Bld 195 nmol/L (0-378)
== END ==
LOC: OLS.BROOKB 05:00
PROVIDERS: Visit Provider Internal Medicine
DX: E53.8 Deficiency of other specified B group vitamins; R73.9 Hyperglycemia, unspecified
CPT/HCPCS: 36415; 83036; 83921

== ENCOUNTER 2022-12-25 15:19 | Emergency (ER) | payer MEDICARE, SELFPAY ==
[2022-12-25 15:20] VITALS: BP 147/100; PULSE 68; RESP 16; TEMP 36.6; O2SAT 99; BMI 26.6
--- NOTE | 2022-12-25 15:29 | CT_ITS ---
INDICATION: Trauma EXAMINATION: CT CERVICAL SPINE - CT Spine Cervical W/O Contrast Injection TECHNIQUE: Helically acquired images were obtained of the cervical spine. 2D reformatted images were reviewed. A radiation dose optimization technique was used for this scan. IV Contrast dosage and agent: None. RADIATION DOSAGE (If Supplied By Facility): CTDIvol = ( 14.39 ) mGy, DLP = ( 225.04 ) mGycm COMPARISON: None. FINDINGS: VERTEBRAE: No fracture or traumatic subluxation. No discrete lytic or blastic abnormality. Normal alignment. Normal craniocervical junction and cervicothoracic junction. DISCS and SPINAL CANAL: Disc heights are preserved. C2-3: Normal disc height and morphology. Small, central, noncompressive disc protrusion. No canal stenosis. Foramina are patent. C3-4: Normal disc height and morphology. Normal central canal. Right facet hypertrophy. Foraminal stenosis is mild on the left and severe on the right due to uncinate hypertrophy. C4-5: Disc space narrowing. Endplate changes. Normal central canal. Severe left foraminal stenosis due to uncinate and facet hypertrophy. C5-6: Disc space narrowing. Mild spondylotic bar causing mild canal stenosis. Severe left foraminal stenosis due to uncinate hypertrophy. C6-7: Disc space narrowing. Mild spondylotic bar. No canal stenosis. Severe foraminal stenosis due to uncinate hypertrophy. C7-T1: Normal disc height and morphology. Normal central canal. Foramina are patent. NECK SOFT TISSUES: No prevertebral soft tissue swelling. There is no cervical adenopathy. LUNG APICES: Clear. CT/Spine Cervical without Contras IMPRESSION: No acute trauma. Mild degenerative changes detailed above. Electronically Signed: Tiffanie Shipley MD at 16:24 EDT Reading Location ID and State: [id number] / Tel , Service support ,
--- NOTE | 2022-12-25 15:29 | EKG12_ITS ---
Test Reason : FALL Blood Pressure : / mmHG Vent. Rate : 069 BPM Atrial Rate : 069 BPM P-R Int : 156 ms QRS Dur : 090 ms QT Int : 398 ms P-R-T Axes : 024 -60 061 degrees QTc Int : 426 ms Normal sinus rhythm with sinus arrhythmia Left axis deviation Abnormal ECG Confirmed by JOSE PALMER, MATHEW ([id number]), school photograph editor WINTER LINARES ([id number]) on 12/29/2022 10:42:52 A M Referred By: Confirmed By:JOANA GARCIA MD
--- NOTE | 2022-12-25 15:29 | CT_ITS ---
STUDY: CT BRAIN WITHOUT CONTRAST REASON FOR EXAM: Female, 82 years old. Trauma RADIATION DOSAGE (If Supplied By Facility): CTDIvol = ( 47.06 ) mGy, DLP = ( 855.03 ) mGycm TECHNIQUE: Transaxial CT imaging of the brain was performed without administration of intravenous contrast material. Individualized dose optimization techniques were used for this CT. COMPARISON: No relevant priors. FINDINGS: Normal soft tissue structures. Normal calvarium. There is moderate cerebral atrophy with widening of the extra-axial spaces and ventricular dilatation. There are areas of decreased attenuation within the white matter tracts of the supratentorial brain, consistent with microvascular disease changes. There is no intracranial hemorrhage. No acute territorial infarct. Normal visualized paranasal sinuses. CT/Brain/Head without Contrast IMPRESSION: No acute findings. Microvascular ischemic changes. Atrophy. Electronically Signed: Tiffanie Shipley MD at 16:09 EDT Reading Location ID and State: [id number] / Tel , Service support ,
--- NOTE | 2022-12-25 15:32 | EDS_ITS ---
HPI HPI - Fall History of Present Illness Chief Complaint: Fall Informant: patient and EMS Narrative Narrative: Fall at nursing facility. Patient states she feels like her foot just got on something slippery and she fell. She states she did not lose consciousness and the report through EMS and the facility is that she did not. She recalls falling backwards. She states she hit her head but it was not that hard. She mostly has pain in the lower lumbar area. She is not on any blood thinners. She did not have palpitations or chest pain. I asked her about something for pain and she would just like some Tylenol. [facility] Medical History Fall Allergy/AdvReac Type Severity Reaction Status Date / Time No Known Allergies Allergy Verified 12/25/22 15:20 Social History Smoking Status: Never smoker ROS ROS ED Constitutional Constitutional ED: Denies chills or fever(s) Eyes Eyes: Denies blurry vision ENT ENT ED: Denies rhinorrhea Cardiovascular Cardiovascular: Denies chest pain, palpitations or racing heartbeat Respiratory/Chest Respiratory/Chest: Denies cough or dyspnea Gastrointestinal Gastrointestinal: Denies diarrhea, nausea or vomiting Genitourinary Genitourinary ED: Denies dysuria or hematuria Musculoskeletal Musculoskeletal: Reports arthralgias and back pain; Denies neck pain Integumentary Denies Abrasions or rash Neurologic Neurologic: Denies headache(s), paresthesias or weakness Endocrine Endocrinology: Denies polydipsia or polyuria Hematologic/Lymphatic Hematologic/Lymphatic: Denies easy bleeding or easy bruising Allergic/Immunologic Allergic/Immunologic ED: Denies urticaria EXAM Physical Exam Const Vital Signs: 12/25/22 15:20 Temperature 97.9 F Temperature Source Oral Pulse Rate 68 Respiratory Rate 16 Blood Pressure 147/100 H Blood Pressure Mean 115 Pulse Ox 99 Oxygen Delivery Method Room Air HEENT Reports normocephalic HEENT Narrative: There may be a small area of redness in the posterior left scalp. It is very subtle. But its not swollen tender and there is no laceration. Eyes EOMs intact bilaterally Neck full ROM and no lymphadenopathy General: Negative for tenderness Chest Wall inspection of chest normal and palpation of chest normal Chest Narrative: No tenderness or subcu air Resp normal respiratory effort and clear to auscultation bilaterally Cardio regular rate, regular rhythm and no murmurs GI non-tender and non-distended Back/Spine no CVA tenderness Back/Spine Narrative: She does complain of some soreness really in the mid lumbar area. But is not notably tender. Extremity Extremity Narrative: No deformity or pain with motion of upper extremities. I can rotate lower extremities. When I move her right she does states she has a little soreness behind her right knee. There is no deformity. No focal tenderness. No bruising. Her hip does not seem to be hurting but certainly hip pain can refer to the knee so x-rays of the pelvis will be done. Neuro oriented x3, no focal motor deficits and no sensory deficits noted Psych mental status grossly normal and thought process normal Skin Lesions: No no lesions Rashes: No no rashes Trauma: Negative for abrasion or laceration MDM MDM MDM Narrative Medical decision making narrative: Patient CBC shows no acute abnormality. Patient's electrolytes show some mildly low sodium but I do not think this really affected her symptoms. Kos is just mildly elevated. This will need to be rechecked. My independent interpretation of her pelvis lumbar spine films right knee films and chest x-ray show arthritic changes but no acute process. This is similar to final reading. Radiology also read no acute findings on CT of her spine cervically or her CT of the head. Patient is awake alert. She is eating and drinking. Plan will be to get her back. Lab Data Attestation: I reviewed the patient's lab results. Labs: Laboratory Results - last 24 hr 12/25/22 12/25/22 15:45 15:45 WBC 4.7 RBC 4.46 Hgb 14.2 Hct 41.5 MCV 93.0 MCH 31.8 MCHC 34.2 RDW Std Deviation 44.4 H RDW Coeff of Thiago 13.0 Plt Count 140 L MPV 9.0 Immature Gran % (Auto) 0.800 Neut % (Auto) 72.1 H Lymph % (Auto) 16.1 L Bath % (Auto) 9.1 Eos % (Auto) 1.5 Baso % (Auto) 0.4 Absolute Neuts (auto) 3.4 Absolute Lymphs (auto) 0.76 L Nucleated RBC % 0 Sodium 128 L Potassium 4.4 Chloride 97 L Carbon Dioxide 27.0 Anion Gap 4 L BUN 18 Creatinine 0.88 Estim Creat Clear Calc 38.98 Est GFR (MDRD) Af Amer 79 Est GFR (MDRD) Non-Af 65 BUN/Creatinine Ratio 20.5 H Glucose 174 H Calcium 9.2 Radiography Diagnostic Testing: Clinical Impression(s) from Imaging Studies Brain CT 12/25/22 15:29 IMPRESSION: No acute findings. Microvascular ischemic changes. Atrophy. Electronically Signed: Tiffanie Shipley MD at 16:09 EDT Reading Location ID and State: Hanna Painting MD Tel , Service support , Cervical Spine CT 12/25/22 15:29 IMPRESSION: No acute trauma. Mild degenerative changes detailed above. Electronically Signed: Tiffanie Shipley MD at 16:24 EDT Reading Location ID and State: Hanna Painting MD Tel , Service support , Chest X-Ray 12/25/22 16:15 IMPRESSION: No acute cardiopulmonary disease. Electronically Signed: Tiffanie Shipley MD at 16:41 EDT Reading Location ID and State: Hanna Painting MD Tel , Service support , Knee X-Ray 12/25/22 16:15 IMPRESSION: No acute findings. Mild osteoarthrosis. Electronically Signed: Tiffanie Shipley MD at 16:42 EDT Reading Location ID and State: Hanna Painting MD Tel , Service support , Lumbar Spine X-Ray 12/25/22 16:15 IMPRESSION: No evidence of lumbar spinal fracture. Electronically Signed: Tiffanie Sihpley MD at 16:44 EDT Reading Location ID and State: Hanna Painting MD Tel , Service support , Pelvis X-Ray 12/25/22 16:15 IMPRESSION: No acute findings. Electronically Signed: Tiffanie Shipley MD at 16:48 EDT Reading Location ID and State: [id number] / Tel , Service support , EKG Initial EKG: Comments: My independent interpretation the patient's EKG done for fall shows normal sinus rhythm with slight sinus arrhythmia. Overall rate of 69. No acute ST elevation or depression of significance. There is some mild nonspecific changes. NE interval, QRS duration and QTc normal. Discharge Plan Triage Chief Complaint: Fall Other Complaint: Back ED Provider: Alejandro Warner Dx/Rx/DC Orders Clinical Impression: Fall at longterm, Lumbar strain, Closed head injury Instructions: ED Fall Prevention Primary Care Provider: Melvi Villalta Referrals: Melvi Villalta MD [Primary Care Provider] - 3-5 Days if not improving NOT,DEFINED [Non-Staff] - Disposition Disposition: Home, Self Care
[2022-12-25] MEDS: Acetaminophen 325 MG Tablet 650 MG PO (15:38)
[2022-12-25 15:59] LABS: Absolute Lymphocyte Count 0.76 X10^3/uL (0.83-4.51); Absolute Neutrophil Count 3.4 X10^3/uL (2.0-7.7); Basophil# 0.02 X10^3/uL; Basophil% 0.4 % (0-1); Eosinophil# 0.07 X10^3/uL; Eosinophils% 1.5 % (0-5); Hematocrit 41.5 % (37-47); Hemoglobin 14.2 g/dL (12.0-15.0); Lymphocyte # 0.76 X10^3/ul (0.83-4.51); Lymphocyte % 16.1 % (19-41); Mean Corp Hgb Conc 34.2 g/dL (32-36); Mean Corpuscular Hgb 31.8 pg (27.0-32.0); Monocyte# 0.43 X10^3/uL; Monocyte% 9.1 % (0-10); NRBC Flagged by Analyzer 0 % (0-5); Neutrophil # 3.39 X10^3/uL (2.7-7.7); Neutrophil % 72.1 % (47-70); Platelet Count 140 K/mm3 (150-450); RBC Distribution Width SD 44.4 fl (35.1-43.9); Red Blood Count 4.46 M/mm3 (4.2-5.4); White Blood Count 4.7 K/mm3 (4.4-11.0)
--- NOTE | 2022-12-25 16:15 | RAD_ITS ---
INDICATION: Trauma EXAMINATION/TECHNIQUE: X-RAY - RIGHT XR Knee Complete 4 Views or More 4 VIEWS COMPARISON: FINDINGS: No acute fracture or dislocation. No destructive bone changes. Moderate narrowing of the medial compartment. Mild medial spurring. Mild narrowing of the medial patellofemoral joint. Joint spaces are otherwise well-maintained. Normal alignment. Soft tissues are unremarkable. No radiopaque foreign body or soft tissue gas. RAD/Knee 4 or More Views IMPRESSION: No acute findings. Mild osteoarthrosis. Electronically Signed: Tiffanie Shipley MD at 16:42 EDT Reading Location ID and State: [id number] / Tel , Service support ,
--- NOTE | 2022-12-25 16:15 | RAD_ITS ---
Disc spacers at L5-S1. INDICATION: Trauma EXAMINATION/TECHNIQUE: X-RAY - XR Spine Lumbar 2 or 3 Views COMPARISON: None. FINDINGS: VERTEBRAE: Preserved vertebral body height. No fracture. Preservation of the normal lumbar lordosis. No significant facet arthropathy. DISCS: Disc spaces are maintained. INCLUDED ABDOMEN: Included bowel gas pattern is non-obstructive. RAD/Lumbar Spine 2 or 3 Views IMPRESSION: No evidence of lumbar spinal fracture. Electronically Signed: Tiffanie Shipley MD at 16:44 EDT Reading Location ID and State: [id number] / Tel , Service support ,
--- NOTE | 2022-12-25 16:15 | RAD_ITS ---
INDICATION: Trauma EXAMINATION/TECHNIQUE: X-RAY - XR Pelvis 1 or 2 Views COMPARISON: None. FINDINGS: PELVIC BONES: No displaced fracture, destructive or sclerotic lesions. Note that overlapping bowel shadows may however obscure fine detail. Sacroiliac joints are unremarkable. No widening of the pubic symphysis. HIPS: The articular structures are unremarkable. No displaced fracture seen in this frontal view. SOFT TISSUES: No soft tissue swelling or gas. RAD/Pelvis 1 or 2 Views IMPRESSION: No acute findings. Electronically Signed: Tiffanie Shipley MD at 16:48 EDT Reading Location ID and State: [id number] / Tel , Service support ,
--- NOTE | 2022-12-25 16:15 | RAD_ITS ---
INDICATION: Trauma EXAMINATION/TECHNIQUE: X-RAY - XR Chest 1 View COMPARISON: FINDINGS: LINES/DEVICES: None. LUNGS: No consolidation, edema or effusion. No pneumothorax. Calcified granuloma in the right lung. MEDIASTINUM AND CARDIOVASCULAR STRUCTURES: Cardiac silhouette not enlarged. Central airways and mediastinal contour are unremarkable. BONES AND SOFT TISSUES: Unremarkable. RAD/Chest 1 View (Portable) IMPRESSION: No acute cardiopulmonary disease. Electronically Signed: Tiffanie Shipley MD at 16:41 EDT Reading Location ID and State: [id number] / Tel , Service support ,
[2022-12-25 16:17] LABS: Anion Gap 4 (5-15); BUN 18 mg/dL (7-18); BUN/Creat Ratio 20.5 RATIO (10-20); Calcium,Total 9.2 mg/dL (8.5-10.1); Chloride 97 mmol/L (98-107); Creatinine, Serum 0.88 mg/dL (0.55-1.02); EST Glomerular Filtration Rate 65 mL/min (>60); Est Glom Filt Rate - Afr Amer 79 mL/min (>60); Estimated Creatinine Clearance 38.98 ml/min; Glucose 174 mg/dL (74-106); Potassium 4.4 mmol/L (3.5-5.1); Sodium Level 128 mmol/L (136-145)
--- NOTE | 2022-12-25 16:42 | ED.RN ---
CALLED PT'S SON, STEPHANIE FOR UPDATE.
--- NOTE | 2022-12-25 18:29 | ED.RN ---
report called back to rome rabago.
== END 2022-12-25 18:36 | disposition home or self-care (01) ==
PROVIDERS: Emergency Provider Emergency Medicine; PCP Internal Medicine; Visit Provider Emergency Medicine
DX: S09.90XA Unspecified injury of head, initial encounter (principal); S39.012A Strain of muscle, fascia and tendon of lower back, initial encounter; W01.0XXA Fall on same level from slipping, tripping and stumbling without subsequent striking against object, initial encounter; Y92.129 Unspecified place in nursing home as the place of occurrence of the external cause
CPT/HCPCS: 70450; 71045; 72100; 72125; 72170; 73564; 80048; 85025; 93005; 99285; A4216

== ENCOUNTER → 2022-12-26 | Outpatient (REF) | payer MEDICARE, SELFPAY ==
[2022-12-26 09:08] LABS: T4 Free Direct 0.93 ng/dL (0.76-1.46); Thyroid Stim Hormone (TSH) 4.25 uIU/mL (0.358-3.74)
[2022-12-26 10:04] LABS: Hemoglobin A1c 6.6 % (3.8-5.6)
[2022-12-30 12:08] LABS: Methylmalonic Acid Bld 249 nmol/L (0-378)
== END ==
LOC: OLS.BROOKB 05:00
PROVIDERS: PCP Internal Medicine; Visit Provider Internal Medicine
DX: F03.90 Unspecified dementia, unspecified severity, without behavioral disturbance, psychotic disturbance, mood disturbance, and anxiety (principal); I10 Essential (primary) hypertension; Z79.899 Other long term (current) drug therapy
CPT/HCPCS: 36415; 83036; 83921; 84439; 84443

== ENCOUNTER → 2023-01-05 | Outpatient (REF) | payer MEDICARE, SELFPAY ==
[2023-01-05 08:59] LABS: Anion Gap 4 (5-15); BUN 12 mg/dL (7-18); BUN/Creat Ratio 14.5 RATIO (10-20); Calcium,Total 9.9 mg/dL (8.5-10.1); Chloride 100 mmol/L (98-107); Creatinine, Serum 0.83 mg/dL (0.55-1.02); EST Glomerular Filtration Rate 70 mL/min (>60); Est Glom Filt Rate - Afr Amer 85 mL/min (>60); Glucose 202 mg/dL (74-106); Potassium 4.8 mmol/L (3.5-5.1); Sodium Level 130 mmol/L (136-145)
== END ==
LOC: OLS.BROOKB 05:00
PROVIDERS: PCP Internal Medicine; Visit Provider Internal Medicine
DX: I10 Essential (primary) hypertension (principal); E78.00 Pure hypercholesterolemia, unspecified; F33.41 Major depressive disorder, recurrent, in partial remission; F03.918 Unspecified dementia, unspecified severity, with other behavioral disturbance; E06.3 Autoimmune thyroiditis; K21.9 Gastro-esophageal reflux disease without esophagitis
CPT/HCPCS: 36415; 80048

== ENCOUNTER 2023-01-26 12:58 | Emergency (ER) | payer MEDICARE, SELFPAY ==
[2023-01-26 13:00] VITALS: BP 188/91; PULSE 74; RESP 14; TEMP 36.3; O2SAT 94; BMI 25.5
--- NOTE | 2023-01-26 13:26 | RAD_ITS ---
INDICATION: Injury EXAMINATION/TECHNIQUE: X-RAY - RIGHT XR Shoulder Min 2 Views 4 VIEWS COMPARISON: None FINDINGS: SOFT TISSUES: No soft tissue swelling or gas. No radiopaque foreign body. BONES/JOINTS: No acute fracture or subluxation.. Normal alignment. Preservation of the joint space.. No sclerotic or destructive changes observed. CHEST: Incidental note of a subcentimeter calcified granuloma in the lateral right midlung. RAD/Shoulder min 2 Views IMPRESSION: Unremarkable right shoulder. Electronically Signed: Edilson King MD at 14:07 EDT Reading Location ID and State: [id number] / Unknown , Service support ,
--- NOTE | 2023-01-26 13:26 | RAD_ITS ---
INDICATION: Injury EXAMINATION/TECHNIQUE: X-RAY - RIGHT XR Humerus Min 2 Views 2 VIEWS COMPARISON: None FINDINGS: SOFT TISSUES: No soft tissue swelling or gas. No radiopaque foreign body. BONES/JOINTS: No acute fracture or subluxation.. Normal alignment. Preservation of the joint space.. No sclerotic or destructive changes observed. CHEST: Incidental note of a subcentimeter calcified granuloma in the lateral right midlung. RAD/Humerus min 2 Views IMPRESSION: Unremarkable right humerus. Electronically Signed: Edilson King MD at 14:05 EDT Reading Location ID and State: [id number] / Unknown , Service support ,
--- NOTE | 2023-01-26 13:27 | EX.ED.UPPERE ---
HPI History of Present Illness Chief Complaint: Upper Extremity Injury Informant: patient Onset/Context/Timing Onset: Today Narrative Narrative: Patient sent in from [facility] for reported right shoulder injury. Patient states that she hit her right upper arm against a doorway. She did not get knocked to the ground. She is right-hand dominant. She denies any other injury. [facility] Medical History Autoimmune disorder Dementia GERD (gastroesophageal reflux disease) HLD (hyperlipidemia) Hypertension Hypothyroidism TIA (transient ischemic attack) Home Medications metformin 500 mg tablet 500 mg PO BIDCM DM 04/12/13 [History Last Taken 03/05/20] donepezil 10 mg tablet 10 mg PO QHS #30 tabs 03/06/20 [Rx Last Taken Unknown] Allergy/AdvReac Type Severity Reaction Status Date / Time succinylcholine Allergy Severe Other Verified 01/26/23 13:00 [Succinylcholine] levofloxacin [From Levaquin] Allergy Mild Rash Verified 03/05/20 16:52 Sulfa (Sulfonamide Allergy Mild Rash Verified 03/05/20 16:52 Antibiotics) lorazepam AdvReac Intermediate Other Verified 03/05/20 16:52 atorvastatin [From Lipitor] AdvReac muscle Verified 03/05/20 16:52 aches Social History Smoking Status: Never smoker ROS ROS ED Constitutional Constitutional ED: Denies chills or fever(s) Eyes Eyes: Denies change in vision or discharge from eye(s) ENT ENT ED: Denies discharge from eye(s), rhinorrhea or sore throat Cardiovascular Cardiovascular: Denies chest pain or palpitations Respiratory/Chest Respiratory/Chest: Denies cough or dyspnea Gastrointestinal Gastrointestinal: Denies abdominal pain, nausea or vomiting Genitourinary Genitourinary ED: Denies dysuria Musculoskeletal Musculoskeletal: Reports extremity pain; Denies back pain Integumentary Denies Abrasions or rash Neurologic Neurologic: Denies headache(s) or weakness Psychiatric Psychiatric: Denies anxiety or depression Allergic/Immunologic Allergic/Immunologic ED: Denies lip swelling or urticaria EXAM Physical Exam Const Vital Signs: 01/26/23 13:00 Temperature 97.3 F L Temperature Source Oral Pulse Rate 74 Respiratory Rate 14 Blood Pressure 188/91 H Blood Pressure Mean 123 Pulse Ox 94 Oxygen Delivery Method Room Air Positive well nourished and well developed General Appearance ED: well developed HEENT Reports normocephalic and head/scalp atraumatic Eyes PERRL and EOMs intact bilaterally Neck supple Chest Wall inspection of chest normal and palpation of chest normal Resp normal respiratory effort and clear to auscultation bilaterally Cardio regular rate and regular rhythm GI normal to inspection, nondistended, normoactive bowel sounds Palpation: soft Extremity Extremity Narrative: Mild tender palpation of the lateral portion of the right clavicle as well as the proximal half of the right humerus. No obvious deformity. Good range of motion. No abrasions or ecchymoses noted. Neuro no sensory deficits noted Sensorium / Orientation: alert Motor Exam: strength 5/5 throughout Psych mental status grossly normal Skin no rashes or lesions noted MDM MDM MDM Narrative Medical decision making narrative: X-rays of the right shoulder and right humerus obtained to evaluate for fracture. Differential diagnosis includes contusion, sprain, strain. Treatment and Re-Evaluation Narrative: Right shoulder and right humerus x-rays per my interpretation reveal no obvious bony abnormality. Radiology interpretation is reviewed and agrees. Test results discussed with the patient. She will continue supportive care. Discharge Plan Triage Chief Complaint: Upper Extremity Injury ED Provider: Joana Collins Dx/Rx/DC Orders Clinical Impression: Contusion of right shoulder Instructions: ED Shoulder Contusion Prescriptions: No Action metformin 500 MG tablet 500 mg PO BIDCM donepezil 10 MG tablet 10 mg PO QHS Qty: 30 0RF Primary Care Provider: Melvi Villalta Referrals: Melvi Villalta MD [Primary Care Provider] - 1 Week if not improving Disposition Disposition: Home, Self Care
== END 2023-01-26 15:03 | disposition home or self-care (01) ==
PROVIDERS: Emergency Provider Emergency Medicine; PCP Internal Medicine; Visit Provider Emergency Medicine
DX: S40.011A Contusion of right shoulder, initial encounter (principal); E78.5 Hyperlipidemia, unspecified; I10 Essential (primary) hypertension; W22.09XA Striking against other stationary object, initial encounter
CPT/HCPCS: 73030; 73060; 99283

== ENCOUNTER → 2023-02-03 | Outpatient (REF) | payer MEDICARE, SELFPAY ==
[2023-02-03 10:13] LABS: Glucose, Dipstick 100 mg/dl (Normal); Ketone-Dipstick Negative (Negative); Leukocyte Esterase-Dipstick 25 /ul (Negative); Nitrite-Dipstick Negative (Negative); Occult Blood-Urine Negative /ul (Negative); Protein-Dipstick Negative (Negative); Urine Bilirubin Dipstick Negative (Negative); Urine Urobilinogen Normal (Normal)
[2023-02-03 10:14] LABS: Color, Urine Straw (Yellow); Urine Clarity Clear (Clear)
== END ==
LOC: OLS.BROOKB 09:45
PROVIDERS: PCP Internal Medicine; Visit Provider Internal Medicine
DX: R41.82 Altered mental status, unspecified (principal)
CPT/HCPCS: 81002; 87086; 87088

== ENCOUNTER → 2023-02-26 | Outpatient (REF) | payer MEDICARE, SELFPAY ==
[2023-02-26 09:45] LABS: T4 Total, Thyroxin 7.6 ug/dL (4.8-13.9); Thyroid Stim Hormone (TSH) 3.78 uIU/mL (0.358-3.74)
== END ==
LOC: OLS.BROOKB 05:00
PROVIDERS: PCP Internal Medicine; Visit Provider Internal Medicine
DX: E03.9 Hypothyroidism, unspecified (principal)
CPT/HCPCS: 36415; 84436; 84443

== ENCOUNTER → 2023-05-28 | Outpatient (REF) | payer MEDICARE, SELFPAY ==
[2023-05-28 08:55] LABS: Thyroid Stim Hormone (TSH) 3.77 uIU/mL (0.358-3.74)
== END ==
LOC: OLS.BROOKB 05:00
PROVIDERS: PCP Internal Medicine; Visit Provider Internal Medicine
DX: E06.3 Autoimmune thyroiditis (principal)
CPT/HCPCS: 36415; 84443

== ENCOUNTER → 2023-07-30 | Outpatient (REF) | payer MEDICARE, SELFPAY ==
--- OUTSIDE RECORDS SUMMARY | 2023-07-30 05:42 | XMS RPT_ITS | CCD ---
Author Name Unknown Address [address] [place] [address] Organization [facility] Care Team Providers Care Drill Operator Pneumatic Name Role Phone Matt Villalta MD Primary Care Provider TORI RAMSAY Referring Unavailable MATT VILLALTA Primary Care Unavailable TORI RAMSAY Attending Unavailable MATT VILLALTA Primary Care Unavailable Allergies Allergy Classification Reported Allergen(s) Allergy Type Date of Onset Reaction(s) Facility (17 sources) atorvastatin; Translations: [ATORVASTATIN] Drug Allergy 2 Other: See Comments [facility] Work Phone: (4 sources) Budesonide / formoterol; Translations: [BUDESONIDE-FORM OTEROL] Drug Allergy [address] [facility] Work Phone: (17 sources) levoFLOXacin; Translations: [LEVOFLOXACIN] Drug Allergy 5 [facility] Work Phone: (17 sources) LORazepam; Translations: [LORAZEPAM] Drug Allergy 0 Other: See Comments [facility] (17 sources) Succinylcholine; Translations: [SUCCINYLCHOLINE ] Drug Allergy 5 Other: See Comments [facility] Work Phone: (17 sources) Sulfonamides (Antibiotic); Translations: [SULFA (SULFONAMIDE ANTIBIOTICS)] Propensity to adverse reactions [address] [facility] Work Phone: (13 sources) Budesonide / formoterol Drug Allergy [address] [facility] Work Phone: Medications Completed/Discontinued Medications Medication Drug Class(es) Dates Sig (Normalized) Sig (Original) 120 actuat albuterol 0.1 mg/actuat / ipratropium bromide 0.02 mg/actuat inhalation spray (1 source) Anticholinergic, beta2-Adrenergic Agonist Start: 06-18-2021 End: 11-26-2021 ipratropium 20 mcg-albuterol 100 mcg (COMBIVENT RESPIMAT) 20-100 mcg/actuation inhaler USE 1 INHALATION DIRECTED FOUR TIMES A DAY NEEDED. (Just needing 1 puff twice daily at this time) 4 g 1 06/18/2021 11/26/2021 Discontinued Problems Active Problems Problem Classification Problem Date Documented Date Episodic/Chronic Anxiety disorders (20 sources) Anxiety; Translations: [Anxiety disorder, unspecified] Onset: 09-05-2010 09-05-2010 Chronic Asthma (20 sources) Asthma; Translations: [Unspecified asthma, uncomplicated] Onset: 03-11-2005 10-22-2015 Chronic Cancer; other and unspecified primary (2 sources) History of benign neoplasm of spinal cord; Translations: [Personal history of other benign neoplasm] 06-17-2023 Episodic Delirium, dementia, and amnestic and other cognitive disorders (20 sources) Dementia; Translations: [Unspecified dementia without behavioral disturbance] Onset: 08-05-2019 08-05-2019 Chronic Diabetes mellitus without complication (7 sources) Diabetes mellitus without complication; Translations: [Type 2 diabetes mellitus without complications] Onset: 03-11-2005 06-18-2015 Chronic Diabetes mellitus without complication (1 source) Impaired fasting glycemia; Translations: [Impaired fasting glucose] Episodic Disorders of lipid metabolism (15 sources) Mixed hyperlipidemia; Translations: [Mixed hyperlipidemia] Onset: 09-29-2005 06-18-2015 Chronic Esophageal disorders (14 sources) Gastroesophageal reflux disease; Translations: [Gastro-esophageal reflux disease without esophagitis] Onset: 10-28-2005 04-11-2010 Chronic Essential hypertension (18 sources) Essential hypertension; Translations: [Essential (primary) hypertension] Onset: 03-11-2005 06-18-2015 Chronic Immunity disorders (20 sources) Common variable agammaglobulinemia; Translations: [Common variable immunodeficiency, unspecified] Onset: 12-05-2006 07-08-2021 Chronic Immunizations and screening for infectious disease (2 sources) Patient encounter status; Translations: [Encounter for immunization] Episodic Mood disorders (20 sources) Reactive depression (situational); Translations: [Major depressive disorder, single episode, unspecified] Onset: 09-05-2010 10-20-2017 Chronic Neoplasms of unspecified nature or uncertain behavior (14 sources) Neoplasm of spinal cord; Translations: [Neoplasm of unspecified behavior of endocrine glands and other parts of nervous system] 04-05-2010 Episodic Nutritional deficiencies (2 sources) Vitamin D deficiency; Translations: [Vitamin D deficiency, unspecified] Onset: 06-17-2023 06-17-2023 Chronic Osteoarthritis (16 sources) Osteoarthritis; Translations: [Unspecified osteoarthritis, unspecified site] Onset: 12-03-2009 12-03-2009 Chronic Other aftercare (1 source) Encounter for therapeutic drug level monitoring; Translations: [Encounter for therapeutic drug monitoring] Onset: 06-17-2023 Episodic Other nutritional; endocrine; and metabolic disorders (6 sources) Obesity; Translations: [Obesity, unspecified] 04-11-2010 Chronic Other nutritional; endocrine; and metabolic disorders (1 source) H/O: diabetes mellitus; Translations: [Personal history of other endocrine, nutritional and metabolic disease] Episodic Other upper respiratory disease (14 sources) Chronic rhinitis; Translations: [Chronic rhinitis] Onset: 10-28-2005 04-11-2010 Chronic Other upper respiratory disease (14 sources) Allergic rhinitis; Translations: [Allergic rhinitis, unspecified] Onset: 02-19-2017 02-19-2017 Chronic Residual codes; unclassified (1 source) Needs assistance with community resources; Translations: [Other specified health status] Episodic Thyroid disorders (20 sources) 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; Translations: [Other specified hypothyroidism] Onset: 07-09-2021 07-08-2021 Chronic Unclassified (1 source) Neurodegenerative dementia with behavioral disturbance (HCC); Translations: [Neurodegenerative dementia with behavioral disturbance (HCC)] Onset: 02-21-2022 Past or Other Problems Problem Classification Problem Date Documented Da te Episodic/Chronic Other connective tissue disease (14 sources) Pain in limb; Translations: [Pain in unspecified limb] Onset: 01-11-2010 01-11-2010 Episodic Other gastrointestinal disorders (14 sources) Constipation; Translations: [Constipation, unspecified] Onset: 05-17-2008 07-11-2008 Episodic Other skin disorders (14 sources) Sebaceous cyst of skin; Translations: [Sebaceous cyst] Onset: 02-13-2006 04-11-2010 Episodic Pathological fracture (16 sources) Primary osteoporosis; Translations: [Age-related osteoporosis with current pathological fracture, unspecified site, subsequent encounter for fracture with routine healing] Onset: 03-11-2005 08-05-2019 Episodic Spondylosis; intervertebral disc disorders; other back problems (20 sources) Backache; Translations: [Dorsalgia, unspecified] Onset: 01-11-2010 07-08-2021 Episodic Results Test Name Value Interpretation Reference Range Facil ity Vital Signs Date Time Vital Sign Value Performing Clinician Jonas mackenzie 06-17-2023 14:08-0500 Diastolic blood pressure 84 mm[Hg] Tori Devendra NIP WRAPPER.WOOD GRINDER OPERATOR Work Phone: [facility] 06-17-2023 14:08-0500 Systolic blood pressure 132 mm[Hg] Tori Devendra NIP WRAPPER.WOOD GRINDER OPERATOR Work Phone: [facility] 06-17-2023 14:06-0500 Body height 154.9 cm Tori Devendra NIP WRAPPER.WOOD GRINDER OPERATOR Work Phone: [facility] 06-17-2023 14:06-0500 Body weight 62.14 kg Tori Devendra NIP WRAPPER.WOOD GRINDER OPERATOR Work Phone: [facility] 06-17-2023 14:06-0500 Heart rate 87 /min Tori Devendra NIP WRAPPER.WOOD GRINDER OPERATOR Work Phone: [facility] 06-17-2023 14:06-0500 SaO2% (BldA) [Mass fraction] 98 % Tori Devendra NIP WRAPPER.WOOD GRINDER OPERATOR Work Phone: [facility] 03-07-2022 14:33-0400 Body weight 49.9 kg Matt Villalta MD Work Phone: [facility] 03-07-2022 14:33-0400 Diastolic blood pressure 78 mm[Hg] Matt Villalta MD Work Phone: [facility] 03-07-2022 14:33-0400 Heart rate 73 /min Matt Villalta MD Work Phone: [facility] 03-07-2022 14:33-0400 SaO2% (BldA) [Mass fraction] 97 % Matt Villalta MD Work Phone: [facility] 03-07-2022 14:33-0400 Systolic blood pressure 130 mm[Hg] Matt Villalta MD Work Phone: [facility] 02-04-2022 13:49-0400 Body weight 50.35 kg Ibis Burkett NIP WRAPPER.ECONOMICS INSTRUCTOR Work Phone: [facility] 02-04-2022 13:49-0400 Diastolic blood pressure 74 mm[Hg] Ibis Burkett NIP WRAPPER.ECONOMICS INSTRUCTOR Work Phone: [facility] 02-04-2022 13:49-0400 Heart rate 79 /min Ibis Burkett NIP WRAPPER.ECONOMICS INSTRUCTOR Work Phone: [facility] 02-04-2022 13:49-0400 Respiratory rate 16 /min Ibis Burkett NIP WRAPPER.ECONOMICS INSTRUCTOR Work Phone: [facility] 02-04-2022 13:49-0400 SaO2% (BldA) [Mass fraction] 99 % Ibis Burkett NIP WRAPPER.ECONOMICS INSTRUCTOR Work Phone: [facility] 02-04-2022 13:49-0400 Systolic blood pressure 128 mm[Hg] Ibis Burkett NIP WRAPPER.ECONOMICS INSTRUCTOR Work Phone: [facility] 11-26-2021 19:34-0400 Body weight 50.53 kg Matt Villalta MD Work Phone: [facility] 11-26-2021 19:34-0400 Diastolic blood pressure 82 mm[Hg] Matt Villalta MD Work Phone: [facility] 11-26-2021 19:34-0400 Heart rate 74 /min Matt Villalta MD Work Phone: [facility] 11-26-2021 19:34-0400 Systolic blood pressure 128 mm[Hg] Matt Villalta MD Work Phone: [facility] Encounters Encounter Date Encounter Type Care Provider Facility Start: 06-19-2023 Telephone encounter Tori humphrey NIP WRAPPER.WOOD GRINDER OPERATOR Work Phone: [facility] [place] Procedures Date Procedure Procedure Detail Performing Clinician Start: 11-26-2022 Hemoglobin A1c/Hemoglobin.total in Blood [facility] Provider Plan of Treatment Date Care Activity Detail Author Start: 04-27-[address] [facility] Start: 06-17-2024 Hepatitis B screening Urine Albumin:Creatinine Ratio [facility] Start: 06-17-2024 Hepatitis B surface antibody level LDL Cholesterol [facility] Start: 12-17-2023 Hemoglobin A1c/Hemoglobin.total in Blood HbA1C [facility] Start: 06-27-2023 Hemoglobin A1c/Hemoglobin.total in Blood HbA1C [facility] Start: 06-17-2023 End: 09-16-2023 25-hydroxyvitamin D3 [Mass/volume] in Serum or Plasma [facility] Work Phone: Immunizations Immunization Date Immunization Notes Care Provider Fa cili 04-28-2023 influenza, injectabl e, quadrivalent, preservative free Tori Ramsay NIP WRAPPER.WOOD GRINDER OPERATOR Work Phone: [facility] Work Phone: 02-04-2022 COVID-19 vaccine, ag e 12+ yr (PFIZER-BIONTECH - HANSEN TOP) Ibis Burkett NIP WRAPPER.ECONOMICS INSTRUCTOR Work Phone: [facility] 03-12-2021 COVID-19 vaccine, ag e 12+ yr (PFIZER-BIONTECH - PURPLE TOP) Aracelis Schlechty [facility] 05-08-2020 influenza, high dose seasonal, preservative-free Aracelis Schlechty [facility] Work Phone: 05-08-2020 influenza virus vacc ine, unspecified formulation Jack Villarreal MA [facility] 04-26-2018 influenza, high dose seasonal, preservative-free Aracelis Schlechty [facility] 05-19-2016 influenza, high dose seasonal, preservative-free Aracelis Schlechty [facility] 04-25-2015 influenza, high dose seasonal, preservative-free Aracelis Schlechty [facility] 10-16-2014 pneumococcal conjuga te vaccine, 13 valent Aracelis Schlechty [facility] 04-15-2013 influenza virus vacc ine, unspecified formulation [facility] Work Phone: 03-28-2013 tetanus and diphther ia toxoids, adsorbed, preservative free, for adult use (2 Lf of tetanus toxoid and 2 Lf of diphtheria toxoid) [facility] Work Phone: 07-21-2012 influenza virus vacc ine, unspecified formulation Aracelisnicki [facility] 09-09-2010 pneumococcal polysaccharide vaccine, 23 valent Aracelis [facility] 05-18-2006 influenza virus vacc ine, unspecified formulation [facility] Work Phone: 05-12-2005 influenza virus vacc ine, unspecified formulation [facility] Work Phone: 03-11-2005 tetanus and diphther ia toxoids, adsorbed, preservative free, for adult use (2 Lf of tetanus toxoid and 2 Lf of diphtheria toxoid) [facility] Work Phone: 07-13-2000 pneumococcal polysaccharide vaccine, 23 valent Aracelisnicki [facility] Payers Date Payer Category Payer Private Health Insurance [id number] 2022 Medicare UHC AAR MEDICAR E FORMERLY [facility] MEDICARE O [id number] 2022-2022 [address] [address] [place] [address] O [id number] 2005 Medicare [id number] Social History Date Type Detail Facility Start: 01-07-2011 Tobacco smoking stat [facility] Never smoked tobacco [facility] Start: 03-12-2021 End: 06-17-2023 Alcohol intake Current non-drinker of alcohol (finding) [facility] Start: 1940 Sex Assigned At Not on file C [facility] Start: 11-16-2021 End: 03-07-2022 Exposure to SARS-CoV-2 (event) Not sure [facility] Start: 01-07-2011 Tobacco use and exposure Smokeless tobacco non-user [facility] Work Phone: Start: 02-04-2022 End: 08-07-2022 History of Social function [facility] Start: 02-04-2022 End: 08-07-[address] [facility] Adult Depression Screening Assessment 0 [facility] Medical Equipment Procedure Code Equipment Code Equipment Origin al Text Equipment Identifier Dates Duragen Plus 2x2 In - [id number] Start: 04-11-2010 Clinical Notes 02-13-2006 to 06-20-2023 Telephone Encounter - Tiffanie Tineo LPN - 06/20/2023 9:19 AM ESTTelephone Encounter - Tori Ramsay APRN.CNP - 06/19/2023 4:12 PM Tori Flanagan APRN.CNP - 06/17/2023 2:11 PM EST Note Date & Type Note Facility 06-20-2023 Miscellaneous Notes Spoke with Litzy with Irene and information listed below given. Tiffanie Tineo LPN Labs back for patient and overall stable. Please let Irene know that vitamin d level is low so I will send in for vitamin d3 2000 units daily. We also had restarted her donepezil at 5 mg daily with her recent visit so just wanted to make sure they knew that also. Paperwork from visit competed and given to family. documented in this encounter [facility] 06-17-2023 Note HNO ID: [id number] Author: Tori Ramsay APRN.CNP Service: ? Author Type: Nurse Practitioner Type: Progress Notes Filed: 06/17/2023 3:40 PM Note Text: SUBJECTIVE Latoya Berumen is a 82 year old female here today for a check up on her medical problems. Chief Complaint Patient presents with: Forms: HPI Latoya Berumen is a 82 year old female. She is an established patient of Dr. Villalta. Last seen in the office 03/07/2023. She is here today accompanied by her son. Needs paper work completed to renew his legal guardianship and for VA benefits. She is residing at [place] in memory care. History of neurodegenerative dementia with behavioral disturbance along with hypertension, asthma, GERD, hypothyroid, osteoporosis, depression and anxiety and diet controlled diabetes. Her dementia has been a progressive process for the last several years. She was seen with gerontology, Dr. James in 2019 and with that visit it was noted she has short term memory loss, hoarding, repeating self. 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 Stopped treatments 2.5 years ago. Her medications were reviewed today and her list is now up to date. Medications Current Outpatient Medications Medication Sig levothyroxine (SYNTHROID) 50 mcg tablet Take 1 tablet by mouth once daily. Take on empty stomach. For Thyroid. sertraline (ZOLOFT) 25 mg tablet Take 1 tablet by mouth once daily. donepezil (ARICEPT) 5 mg tablet Take 1 tablet by mouth daily at bedtime. (RX sent in September 2020) No current facility-administered medications for this visit. ALLERGIES Allergen Reactions Ativan [Lorazepam] Other: See Comments hallucination Levaquin [Levofloxa* Joint aches Lipitor [Atorvastat* Other: See Comments muscle and joint aches Succinylcholine Other: See Comments cannot break it down, delayed paralysis Sulfa (Sulfonamide * Rash Symbicort [Budesoni* Cough hoarseness ACTIVE PROBLEM LIST Hoarding Disorder With Poor Insight - 03/25/2020 Neurodegenerative Dementia With Behavioral Disturbance (Hcc) - 08/05/2019 Comment: MOCA (07/2019) 16 Donepezil - trial 06/2019 - not taking Recurrent Major Depressive Disorder, in Partial Remission (Hcc) - 06/27/2017 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 Respiratory: Negative. Cardiovascular: Negative. Gastrointestinal: Negative. Psychiatric/Behavioral: Positive for confusion. OBJECTIVE BP 132/84 Pulse 87 Ht 5' 1 (1.55m) Wt 137 lb (62.1kg) SpO2 98% BMI 25.90 kg/(m2). Physical Exam Vitals and nursing note reviewed. Constitutional: General: She is awake. She is not in acute distress. Appearance: Normal appearance. She is well-developed and well-groomed. She is not ill-appearing, toxic-appearing or diaphoretic. HENT: Head: Normocephalic. Right Ear: External ear normal. Left Ear: External ear normal. Nose: Nose normal. Eyes: General: Vision grossly intact. Conjunctiva/sclera: Conjunctivae normal. Pupils: Pupils are equal, round, and reactive to light. Neck: Vascular: No JVD. Trachea: Trachea normal. Cardiovascular: Rate and Rhythm: Normal rate and regular rhythm. Pulses: Normal pulses. Heart sounds: Normal heart sounds. No murmur heard. Pulmonary: Effort: Pulmonary effort is normal. No accessory muscle usage, prolonged expiration or respiratory distress. Breath sounds: Normal breath sounds. Musculoskeletal: Cervical back: Neck supple. Skin: General: Skin is warm and dry. Capillary Refill: Capillary refill takes less than 2 seconds. Neurological: General: No focal deficit present. Mental Status: She is alert. Mental status is at baseline. She is confused. Comments: 0/3 word recall. Not able to correctly state the month, day of the week or season. Psychiatric: Attention and Perception: Attention and perception normal. Speech: Speech normal. Behavior: Behavior normal. Behavior is cooperative. Thought Content: Thought content normal. Cognition and Memory: Cognition and memory normal. Judgment: Judgment normal. Comments: Mood variable, at times upset when discussing her dementia and current living situation. ASSESSMENT/PLAN: 1. Neurodegenerative dementia with behavioral disturbance (HCC) - ICD9: 294.21, ICD10: F03.918 (primary diagnosis) Can do labs today, restart Aricept 5 mg, will co (more content not included)... [facility] 06-17-2023 History of Present illness Narrative SUBJECTIVE Latoya Berumen is a 82 year old female here today for a check up on her medical problems. Chief Complaint Patient presents with: Forms: HPI Latoya Berumen is a 82 year old female. She is an established patient of Dr. Villalta. Last seen in the office 03/07/2023. She is here today accompanied by her son. Needs paper work completed to renew his legal guardianship and for VA benefits. She is residing at [place] in [facility]. History of neurodegenerative dementia with behavioral disturbance along with hypertension, asthma, GERD, hypothyroid, osteoporosis, depression and anxiety and diet controlled diabetes. Her dementia has been a progressive process for the last several years. She was seen with gerontology, Dr. James in 2019 and with that visit it was noted she has short term memory loss, hoarding, repeating self. 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 Stopped treatments 2.5 years ago. Her medications were reviewed today and her list is now up to date. Medications Current Outpatient Medications Medication Sig levothyroxine (SYNTHROID) 50 mcg tablet Take 1 tablet by mouth once daily. Take on empty stomach. For Thyroid. sertraline (ZOLOFT) 25 mg tablet Take 1 tablet by mouth once daily. donepezil (ARICEPT) 5 mg tablet Take 1 tablet by mouth daily at bedtime. (RX sent in September 2020) No current facility-administered medications for this visit. ALLERGIES Allergen Reactions Ativan [Lorazepam] Other: See Comments hallucination Levaquin [Levofloxa* Joint aches Lipitor [Atorvastat* Other: See Comments muscle and joint aches Succinylcholine Other: See Comments cannot break it down, delayed paralysis Sulfa (Sulfonamide * Rash Symbicort [Budesoni* Cough hoarseness ACTIVE PROBLEM LIST Hoarding Disorder With Poor Insight - 03/25/2020 Neurodegenerative Dementia With Behavioral Disturbance (Hcc) - 08/05/2019 Comment: MOCA (07/2019) 16 Donepezil - trial 06/2019 - not taking Recurrent Major Depressive Disorder, in Partial Remission (Hcc) - 06/27/2017 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 Respiratory: Negative. Cardiovascular: Negative. Gastrointestinal: Negative. Psychiatric/Behavioral: Positive for confusion. OBJECTIVE BP 132/84 Pulse 87 Ht 5' 1 (1.55m) Wt 137 lb (62.1kg) SpO2 98% BMI 25.90 kg/(m^2). Physical Exam Vitals and nursing note reviewed. Constitutional: General: She is awake. She is not in acute distress. Appearance: Normal appearance. She is well-developed and well-groomed. She is not ill-appearing, toxic-appearing or diaphoretic. HENT: Head: Normocephalic. Right Ear: External ear normal. Left Ear: External ear normal. Nose: Nose normal. Eyes: General: Vision grossly intact. Conjunctiva/sclera: Conjunctivae normal. Pupils: Pupils are equal, round, and reactive to light. Neck: Vascular: No JVD. Trachea: Trachea normal. Cardiovascular: Rate and Rhythm: Normal rate and regular rhythm. Pulses: Normal pulses. Heart sounds: Normal heart sounds. No murmur heard. Pulmonary: Effort: Pulmonary effort is normal. No accessory muscle usage, prolonged expiration or respiratory distress. Breath sounds: Normal breath sounds. Musculoskeletal: Cervical back: Neck supple. Skin: General: Skin is warm and dry. Capillary Refill: Capillary refill takes less than 2 seconds. Neurological: General: No focal deficit present. Mental Status: She is alert. Mental status is at baseline. She is confused. Comments: 0/3 word recall. Not able to correctly state the month, day of the week or season. Psychiatric: Attention and Perception: Attention and perception normal. Speech: Speech normal. Behavior: Behavior normal. Behavior is cooperative. Thought Content: Thought content normal. Cognition and Memory: Cognition and memory normal. Judgment: Judgment normal. Comments: Mood variable, at times upset when discussing her dementia and current living situation. ASSESSMENT/PLAN: 1. Neurodegenerative dementia with behavioral disturbance (HCC) - ICD9: 294.21, ICD10: F03.918 (primary diagnosis) Can do labs today, restart Aricept 5 mg, will complete paperwork. - VITAMIN B12 BLOOD - VITAMIN D 25 HYDROXY - DONEPEZIL 5 MG TABLET - DONEPEZIL 5 MG TABLET 2. Essential hypertension - ICD9: 401.9, ICD10: I10 - Controlled - Recommend home blood pressure monitoring, to bring results to next visit - Encouraged sodium restriction, DASH or Mediterranean diet - Recommend regular aerobic exercise 3. Anxiety - ICD9: 300.00, ICD10: F41.9 Stable. 4. Recurrent major depressive disorder, in partial remission (HCC) - ICD9: 296.35, ICD10: F33.41 Stable. 5. Diet-controlled diabetes mellitus (HCC) - ICD9: 250.00, ICD10: E11.9 - LIPID PANEL BASIC - HGB A1C - ALBUMIN/CREAT RATIO RND UR 6. 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 Vitamin D deficiency - ICD9: 268.9, ICD10: E55.9 - VITAMIN D 25 HYDROXY 8. Encounter for therapeutic drug monitoring - ICD9: V58.83, ICD10: Z51.81 - CBC + DIFF - VITAMIN B12 BLOOD - COMP METABOLIC PANEL - TSH BLD Portions of this note have been entered by ancillary staff. I have reviewed and when necessary edited, so that they are an adequate record of my encounter with this patient Please note that parts of this document were created using voice recognition software and therefore may contain grammatical errors. Patient verbalizes understanding of instructions from today's visit and in agreement with treatment plan. Questions answered. Agrees to call the office if questions, concerns of issues with acute symptoms not improving or if they worsen. See diagnoses and orders for additional plan(s). Allergies and medications were reviewed, list was updated, and refills given if needed. Past medical, surgical, social, and family history reviewed and updated as appropriate. Encouraged proper diet & exercise as well as compliance with taking medications. Age-appropriate health preventative measures were discussed. Return if symptoms worsen or fail to improve. Troi Ramsay APRN-ALLY documented in this encounter [facility] 04-15-2023 Miscellaneous Notes Patient has been identified by name and date of : [employer] phones for refill(s): Requested Prescriptions Pending Prescriptions Disp Refills levothyroxine (SYNTHROID) 50 mcg tablet 30 tablet 3 Sig: Take 1 tablet by mouth once daily. Take on empty stomach. For Thyroid. Date of last office visit in primary care: 03/07/2022 Last 2 Encounter Wt Readings: Date: Wt: 03/07/2022 49.9 kg (110 lb) 02/04/2022 50.3 kg (111 lb) Previous labs/tests for medication: Thyroid: TSH Date Value 02/04/2022 4.470 mIU/L 10/02/2020 5.250 uU/mL Please advise. Thank you. Diane Meyer LPN documented in this encounter [facility] 03-30-2023 Note HNO ID: [id number] Author: Jack Villarreal MA Service: ? 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 He would still like to be able to schedule with PCP if needed. Patient Identified by Name and : YES, via phone Outreach Outcome/Action Spoke to patient / parent / legal guardian: No action required (information or reminder only) Did you use a PCP flex slot to schedule this appointment? N/A Reason for Outreach HCC or suspected condition Payer: Payor: [employer] MEDICARE / Plan: [employer] / Product Type: HMO / Care Gap Reviewed:: N/A Reminder: Reminder note to check Health Maintenance for items below Health Maintenance items due: Shingrix Vaccine(1 of 2) Never done LDL Cholesterol due on 02/15/2019 Dilated Retinal Exam due on 12/17/2019 Covid-19 Vaccine(5 - Pfizer risk series) due on 04/01/2022 Advance Directive Discussion due on 07/13/2022 Urine Albumin:Creatinine Ratio due on 02/04/2023 Influenza Vaccine(1) due on 03/13/2023 Navigation Signature: Jack Villarreal MA March 30, 2023 12:38 PM [facility] 03-30-2023 Note Patient Outreach (NE TNAV) LATOYA BERUMEN ([id number]) 1940 F Date Time Provider Department 03/30/23 JACK VILLARREALV During your visit today, we recorded the following information about you: Jack Villarreal MA 03/30/2023 12:47 PM Signed POPULATION HEALTH NAVIGATION OUTREACH Action/ PCP appointment needed: YES, No showed Medicare Wellness HCC Gaps: 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 He would still like to be able to schedule with PCP if needed. Patient Identified by Name and : YES, via phone Outreach Outcome/Action Spoke to patient / parent / legal guardian: No action required (information or reminder only) Did you use a PCP flex slot to schedule this appointment? N/A Reason for Outreach HCC or suspected condition Payer: Payor: [employer] MEDICARE / Plan: [employer] / Product Type: HMO / Care Gap Reviewed:: N/A Reminder: Reminder note to check Health Maintenance for items below Health Maintenance items due: Shingrix Vaccine(1 of 2) Never done LDL Cholesterol due on 02/15/2019 Dilated Retinal Exam due on 12/17/2019 Covid-19 Vaccine(5 - Pfizer risk series) due on 04/01/2022 Advance Directive Discussion due on 07/13/2022 Urine Albumin:Creatinine Ratio due on 02/04/2023 Influenza Vaccine(1) due on 03/13/2023 Navigation Signature: Jack Villarreal MA March 30, 2023 12:38 PM Allergies As of Date: 03/30/2023 Noted Allergy Reaction ATIVAN (LORAZEPAM) 06/04/2010 14 - Other: See Comments Comments: hallucination LEVAQUIN (LEVOFLOXACIN) 03/11/2005 Comments: Joint aches LIPITOR (ATORVASTATIN) 09/12/2011 14 - Other: See Comments Comments: muscle and joint aches SUCCINYLCHOLINE 04/09/2005 14 - Other: See Comments Comments: cannot break it down, delayed paralysis SULFA (SULFONAMIDE ANTIBIOTICS) 03/06/2005 2 - Rash SYMBICORT (BUDESONIDE-FORMOTEROL) 10/26/2014 3 - Cough Comments: hoarseness Date Reviewed: 03/07/2022 Reviewed by: Aziza Chavez Ma - Fully Assessed Reason for Visit: Population Health Navigation Outreach [3910] Cmt: HCC High Prescriptions as of 03/30/2023 - levothyroxine (SYNTHROID) 50 mcg tablet Take 1 tablet by mouth once daily. Take on empty stomach. For Thyroid. - sertraline (ZOLOFT) 25 mg tablet Take 1 tablet by mouth once daily. - donepezil (ARICEPT) 5 mg tablet Take 1 tablet by mouth daily at bedtime. (RX sent in September 2020) - calcium carbonate/vitamin D3 (CALCIUM + D ORAL) Take 1 tablet by mouth once daily. - MULTIVITAMIN ORAL Take 1 tablet by mouth once daily. Problem List As Of Date 03/30/2023 Noted Resolved Age-related osteoporosis with current pathologi*03/11/2005 Essential hypertension [I10] 03/11/2005 Diabetes mellitus without complication (HCC) [E*03/11/2005 02/04/2022 Asthma [J45.909] 03/11/2005 OVERWEIGHT [E66.9] 02/21/2022 Mixed hyperlipidemia [E78.2] 09/29/2005 ESOPHAGEAL REFLUX [K21.9] 10/28/2005 CHRONIC RHINITIS [J31.0] 10/28/2005 UNCERTAIN BEHAVIOR - NEOPLASM SKIN [D48.5] 02/13/2006 05/14/2015 Unspecified hypertrophic and atrophic condition*02/13/2006 05/14/2015 SEBACEOUS CYST [L72.3] 02/13/2006 COMMON VARIABL IMMUNODEF [D83.9] 12/05/2006 CONSTIPATION NOS [K59.00] 05/17/2008 Osteoarthritis [M19.90] 12/03/2009 Backache, unspecified [M54.9] 01/11/2010 Pain in Soft Tissues of Limb [M79.609] 01/11/2010 Lumbar Radicular Pain [M54.16] 01/28/2010 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] Preop exam for internal medicine [Z01.818] 05/14/2015 Reactive depression [F32.9] 09/05/2010 Anxiety [F41.9] 09/05/2010 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 [* Common variable hypogammaglobulinemia (HCC) [D8*01/15/2017 Uncomplicated severe persistent asthma [J45.50] 02/19/2017 Allergic rhinitis [J30.9] 02/19/2017 Recurrent major depressive disorder, in partial*06/27/2017 Neurodegenerative dementia with behavioral dist*08/05/2019 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
D83.9 - Common variable immunodeficiency (HCC)
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
F33.41 - Recurrent major depressive disorder, in partial remission (HCC) - [id number] Last Billed 02/04/2022
Care Gaps to Address: N/A Outcomes: Spoke to patient's son who said that patient is in a Memory Care Facility and that she is seeing the provider at the facility. He would still like to be able to schedule with PCP if needed. Patient Identified by Name and : YES, via phone Outreach Outcome/Action Spoke to patient / parent / legal guardian: No action required (information or reminder only) Did you use a PCP flex slot to schedule this appointment? N/A Reason for Outreach HCC or suspected condition Payer: Payor: [employer]MANA MEDICARE / Plan: [employer] / Product Type: HMO / Care Gap Reviewed:: N/A Reminder: Reminder note to check Health Maintenance for items below Health Maintenance items due: Shingrix Vaccine(1 of 2) Never done LDL Cholesterol due on 02/15/2019 Dilated Retinal Exam due on 12/17/2019 Covid-19 Vaccine(5 - Pfizer risk series) due on 04/01/2022 Advance Directive Discussion due on 07/13/2022 Urine Albumin:Creatinine Ratio due on 02/04/2023 Influenza Vaccine(1) due on 03/13/2023 Navigation Signature: Jack Villarreal MA March 30, 2023 12:38 PM documented in this encounter [facility] 01-26-2023 Miscellaneous Notes Notified Sherice Bonilla of [facility]. Lanette Teixeira LPN ER visit if patient not too confused and able to go to ER and family agreeable. That was if there is a fracture, can be taken care of [place]. Sherice with [facility] calls to report pt fell this morning into the door of closet. Pt is complaining of right shoulder pain. Sherice is asking if wants to: Order STAT xray or send pt out. Pt has no other complaints. Please call Sherice with 's orders. Lanette Teixeira LPN documented in this encounter [facility] 01-02-2023 Miscellaneous Notes Notified Sherice with [facility] [phone] and pt's son with information listed below. Tiffanie Tineo LPN TSH 8.57 on labs done in December at [facility] . Will increase dose. Need to recheck labs in 2 months (TSH, Free T4) Patient has been identified by name and date of : Yes, Provider Date Time Pharmacy phones for refill(s): Requested Prescriptions Pending Prescriptions Disp Refills levothyroxine (SYNTHROID) 25 mcg tablet 30 tablet 1 Sig: Take 1 tablet by mouth once daily. Take on empty stomach. For Thyroid. Pharmacy calling ahead for next script for Levothyroxine. PCP note on 11/14/22 says medication may be titrated up as needed. Date of last office visit with pcp: 03/07/22 Date of last office visit in primary care: Last 2 Encounter Wt Readings: Date: Wt: 03/07/2022 49.9 kg (110 lb) 02/04/2022 50.3 kg (111 lb) Previous labs/tests for medication: Thyroid: TSH Date Value 02/04/2022 4.470 mIU/L 10/02/2020 5.250 uU/mL Please advise. Thank you. Theresa Florian, RN documented in this encounter [facility] 05-30-2022 Miscellaneous Notes Patient's son returned call and given provider's message below and patient verbalized understanding. Abhinav Calle RN LEFT MESSAGE FOR PATIENT's son TO CALL OFFICE. Looks like Zoloft helped in the past (started 2017 but stopped when was not taking her meds routinely on her own anymore). Would resume this started at low dose and titrate up as tolerated. Would also resume thyroid replacement since untreated hypothyroidism can contribute to depression/fatigue/ anxiety as well as more impaired cognition. The following approved medication requests have been transmitted electronically. Requested Prescriptions Signed Prescriptions Disp Refills sertraline (ZOLOFT) 25 mg tablet 30 tablet 2 Sig: Take 1 tablet by mouth once daily. Authorizing Provider: MATT VILLALTA levothyroxine (SYNTHROID) 25 mcg tablet 30 tablet 2 Sig: Take 1 tablet by mouth once daily. Take on empty stomach. For Thyroid. Authorizing Provider: MATT VILLALTA MD Once determine adequate dosage and gets insurance, can change to 90 day supply . Patient daughter in law requesting anti-depressant and anti- anxiety medication to be prescribed. Please print RX since patient is currently without Insurance. documented in this encounter [facility] 03-07-2022 History of Present illness Narrative This note was created using NoteWriter. Subjective Latoya Berumen is a 81 year old female. Patient presents with: Forms SUBJECTIVE: Latoya Berumen is a 81 year old year old lady here today for follow up appointment for review of medical conditions and completion of forms. Still with ongoing memory issues. Progressive worsening of short term memory. Same issues with cat food--keeps opening cans and putting extra back in refrigerator. Dtr taking money as if it is her money, according to son and daughter in law. Noted that that daughter also is trying to file for guardianship. 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 elevated microsomal antibody Jul 2015 Neurodegenerative dementia without behavioral disturbance (HCC) 08/05/2019 MOCA (07/2019) 16 Donepezil - trial 06/2019 - not taking Obesity, unspecified Preop exam for internal medicine Pure hypercholesterolemia Recurrent major depressive disorder, in partial remission (HCC) 06/27/2017 Spinal cord tumor Type II or unspecified type diabetes mellitus without mention of complication, not stated as uncontrolled Unspecified asthma(493.90) Unspecified constipation Current Outpatient Medications Medication Sig donepezil (ARICEPT) 5 mg tablet Take 1 tablet by mouth daily at bedtime. (RX sent in September 2020) (Patient not taking: Reported on 03/07/2022) levothyroxine (SYNTHROID) 50 mcg tablet Take 1 tablet by mouth once daily. Take on empty stomach. For Thyroid. (Patient not taking: Reported on 03/07/2022) calcium carbonate/vitamin D3 (CALCIUM + D ORAL) Take 1 tablet by mouth once daily. (Patient not taking: Reported on 03/07/2022) MULTIVITAMIN ORAL Take 1 tablet by mouth once daily. (Patient not taking: Reported on 03/07/2022) No current facility-administered medications for this visit. Review of Systems Objective BP 130/78 Pulse 73 Wt 49.9 kg (110 lb) SpO2 97% BMI 19.49 kg/m Physical Exam Constitutional: Appearance: Normal appearance. HENT: Head: Normocephalic. Eyes: Conjunctiva/sclera: Conjunctivae normal. Cardiovascular: Rate and Rhythm: Normal rate and regular rhythm. Heart sounds: Normal heart sounds. Pulmonary: Effort: Pulmonary effort is normal. Breath sounds: Normal breath sounds. Skin: General: Skin is warm and dry. Neurological: General: No focal deficit present. Mental Status: She is alert. Psychiatric: Attention and Perception: Attention normal. Mood and Affect: Mood normal. Speech: Speech normal. Behavior: Behavior is cooperative. Cognition and Memory: Cognition is impaired. Memory is impaired. She exhibits impaired remote memory. Judgment: Judgment is inappropriate. Comments: Pleasant mood until son questions her memory or confronts her with fact that her memory is poor. Then denies that she has any problems with her memory and if he insists she does have problems, she gets upset. Component Latest Ref Rng & Units 10/02/2020 02/04/2022 Protein, Total 6.3 - 8.0 g/dL 6.3 6.3 Albumin 3.9 - 4.9 g/dL 4.4 4.2 Calcium 8.5 - 10.2 mg/dL 9.9 9.8 Bilirubin, Total 0.2 - 1.3 mg/dL 0.4 0.5 Alkaline Phosphatase 34 - 123 U/L 51 48 AST 13 - 35 U/L 12 (L) 16 Glucose 74 - 99 mg/dL 120 (H) 146 (H) BUN 7 - 21 mg/dL 13 18 Creatinine 0.58 - 0.96 mg/dL 0.87 1.01 (H) Sodium 136 - 144 mmol/L 136 133 (L) Potassium 3.7 - 5.1 mmol/L 4.3 4.6 Chloride 97 - 105 mmol/L 100 99 CO2 22 - 30 mmol/L 27 25 Anion Gap 9 - 18 mmol/L 9 9 ALT 7 - 38 U/L 9 11 eGFR- >60 eGFR-All Other Races . >60 eGFR >=60 mL/min/1.73m 56 (L) WBC 3.70 - 11.00 k/uL 5.75 RBC 3.90 - 5.20 m/uL 4.61 Hemoglobin 11.5 - 15.5 g/dL 14.8 Hematocrit 36.0 - 46.0 % 42.4 MCV 80.0 - 100.0 fL 92.0 MCH 26.0 - 34.0 pG 32.1 MCHC 30.5 - 36.0 g/dL 34.9 RDW-CV 11.5 - 15.0 % 12.9 Platelet Count 150 - 400 k/uL 150 MPV 9.0 - 12.7 fL 9.6 Absolute nRBC <0.01 k/uL <0.01 Creatinine, Ur Random (UCRR) 20 - 300 mg/dL 92.8 Albumin, Urine Random mg/L <12.0 Albumin/Creat Ratio <30 mg/g Not calculated Hemoglobin A1C 4.3 - 5.6 % 5.6 5.8 (H) Estimated Average Glucose mg/dL 114 120 TSH 0.270 - 4.200 mIU/L 5.250 (H) 4.470 (H) Free T4 0.9 - 1.7 ng/dL 1.0 Assessment and Plan ASSESSMENT/PLAN: 1. Neurodegenerative dementia with behavioral disturbance (HCC) - ICD10: F03.91 Form for guardianship completed for son as well. Up to mine geologist to determine guardian ship. Patient is not able to make decisions for her own welfare--she has had prior issues with hoarding when she was still driving. She does not remember to eat. At least her weight has leveled at 110 pounds. She still thinks that she is able to drive but her car has already been taken away (she had lost the keys when sister told her to hide them so son could not take them away). Note that goal is for patient to be moved to Assisted Living/Memory Care for her own safety and wellbeing. Son not able to care for her in her own residence or at his home. Further evaluation and treatment as indicated. Matt Villalta MD documented in this encounter [facility] 02-24-2022 Miscellaneous Notes Faxed back to daughter. Number was on the form. Already completed that she is not able to do any of those functions. Also, the last entry 14--it is to say if in my opinion she needs a guardian. I have not checked anything yet since I would assume that if I do, that means the daughter is wanting to pursue guardianship--otherwise, what is the point in completing and submitting this form? I went ahead and checked that should establish guardianship since the point of the evaluation is to give an opinion whether patient should have someone appointed guardian in my opinion, and given her dementia, that is my opinion. Rest of the decision will be up to family and the court system. And turns out the code is the one for this form that was completed. The appointment was within 30 days of signing the form. Yara states to disregard the part about it being done within 3 months of a Report R.C.2111.49 . She states this is likely a [facility] code of some sort. She states it is up to Dr. Villalta to decide if patient able, or not able, to be responsible for self, handle own finances, etc . Jennifer Calle RN Message left for pt's daughter to return call to a nurse Since she does not want to do an application, will check the 1.B. box for Guardian's report though there is a note about it being done within 3 months of a Report R.C.2111.49--I am not sure what that is. Daughter Yara calls back checking on status. Yara is going to fax over form for provider to fill out. They don't need guardianship form yet. They need the expert evaluation first. Saida Rain RN Is there a form to complete? Also< the expert evaluation has a spot to check regarding if it is for guardianship, right? Yara called back and states the following: do not need to complete guardianship application at this time only the expert evaluation Complete form only. Please advise Yara when done. Tiffanie Tineo LPN Attempted to call Yara Espinal. message left to call and ask for triage nurse. See provider's questions below. Jennifer Calle RN Are they requesting completion of the guardianship application? Does patient have to have appointment or just form completed? Yara Roxannrosa m calling requesting expert evaluation for guardianship. She has appt Thursday with assistant track and field coach. Asking to have faxed to her employer to [employer], fax [phone]. Aware you are out of office until Saturday 02/17. Please advise documented in this encounter [facility] 02-10-2022 Miscellaneous Notes Letter with below results, mailed to Patient. Lynda Hebert LPN OK to mail information if unable to reach by phone Unable to reach patient, VM full, does not use mychart Glucose was elevated.Hemoglobin A1c shows at risk for type 2 diabetes; essentially unchanged from previous check. BUN slightly elevated. TSH is about the same as previous Would recommend resuming levothyroxine and donepezil. Recommend avoidance of sugary foods in diet. Lipids were not drawn for some reason, may complete these at her convenience. If she resumes levothyroxine would recheck TSH in 3 months. Component Latest Ref Rng & Units 10/02/2020 02/04/2022 Protein, Total 6.3 - 8.0 g/dL 6.3 6.3 Albumin 3.9 - 4.9 g/dL 4.4 4.2 Calcium 8.5 - 10.2 mg/dL 9.9 9.8 Bilirubin, Total 0.2 - 1.3 mg/dL 0.4 0.5 Alkaline Phosphatase 34 - 123 U/L 51 48 AST 13 - 35 U/L 12 (L) 16 Glucose 74 - 99 mg/dL 120 (H) 146 (H) BUN 7 - 21 mg/dL 13 18 Creatinine 0.58 - 0.96 mg/dL 0.87 1.01 (H) Sodium 136 - 144 mmol/L 136 133 (L) Potassium 3.7 - 5.1 mmol/L 4.3 4.6 Chloride 97 - 105 mmol/L 100 99 CO2 22 - 30 mmol/L 27 25 Anion Gap 9 - 18 mmol/L 9 9 ALT 7 - 38 U/L 9 11 eGFR- >60 eGFR-All Other Races . >60 eGFR >=60 mL/min/1.73m 56 (L) WBC 3.70 - 11.00 k/uL 5.75 RBC 3.90 - 5.20 m/uL 4.61 Hemoglobin 11.5 - 15.5 g/dL 14.8 Hematocrit 36.0 - 46.0 % 42.4 MCV 80.0 - 100.0 fL 92.0 MCH 26.0 - 34.0 pG 32.1 MCHC 30.5 - 36.0 g/dL 34.9 RDW-CV 11.5 - 15.0 % 12.9 Platelet Count 150 - 400 k/uL 150 MPV 9.0 - 12.7 fL 9.6 Absolute nRBC <0.01 k/uL <0.01 Creatinine, Ur Random (UCRR) 20 - 300 mg/dL 92.8 Albumin, Urine Random mg/L <12.0 Albumin/Creat Ratio <30 mg/g Not calculated Hemoglobin A1C 4.3 - 5.6 % 5.6 5.8 (H) Estimated Average Glucose mg/dL 114 120 TSH 0.270 - 4.200 mIU/L 5.250 (H) 4.470 (H) Free T4 0.9 - 1.7 ng/dL 1.0 Patient calls to request provider review and advise on recent lab work from 02/04/2022. Oneyda Chavez RN documented in this encounter [facility] 02-10-2022 Miscellaneous Notes noted Rogelio left message for patient son of days and times this next week that he could call SW back to discuss home care and or AL options for patient. Rogelio left message for patient son Jared to call Sw back to discuss community services and or AL options for patient. Will see what services family is interested in for patient ie. Home care/Assisted Living options. documented in this encounter [facility] 02-04-2022 History of Present illness Narrative SUBJECTIVE: LDL CHOLESTEROL due on 02/15/2019 HBA1C due on 04/04/2021 COVID-19 VACCINE(4 - Booster for Pfizer series) due on 06/11/2021 ADVANCE DIRECTIVE DISCUSSION Never done HPI Latoya Berumen is a 81 year old female. PMH signficiant for ACTIVE PROBLEM LIST Age-Related Osteoporosis With Current Pathological Fracture With Routine Healing Essential Hypertension Asthma OVERWEIGHT Mixed Hyperlipidemia Esophageal Reflux Chronic Rhinitis Sebaceous Cyst COMMON VARIABL IMMUNODEF Unspecified Constipation Osteoarthritis Backache, Unspecified Pain in Limb Lumbar Radicular Pain Spinal Cord Tumor Reactive Depression Anxiety Hypothyroidism Due to Jaimie's Thyroiditis Common Variable Hypogammaglobulinemia (Hcc) Uncomplicated Severe Persistent Asthma Allergic Rhinitis Recurrent Major Depressive Disorder, in Partial Remission (Hcc) Neurodegenerative Dementia Without Behavioral Disturbance (Hcc) Hoarding Disorder With Poor Insight Previous encounters and phone follow-up indicates severe dementia. Assisted living or memory care has been discussed. Social work has provided resources. Most recent call indicated family (daughter) was handling her care so far. She was seen at [facility] December 15, 2021 for complaint of paresthesias. ER note indicates taking no medications currently. She was seen in the ER February 2020 with similar complaint noting that symptoms were likely due to high blood pressure. At that time she was refusing intermediate placement family stated they were going to make arrangements to have her placed in assisted living. Blood pressure noted to be uncontrolled in the ER. Chest x-ray with no acute findings. EKG showed normal sinus rhythm with no acute ischemia. TSH was elevated at 8.57. Blood pressure improved during her stay to 146/76. CTA of head and neck completed. This showed normal CTA head and neck with contrast. Today presents with friend Marilyn Self who indicates that patient's daughter is under significant social stressors and having a hard time keeping up with her mother's needs. Notes daughter recently went through divorce. Notes son-in-law no longer seeing Latoya. Notes recently a bill was not paid. Daughter was to have completed this.. Marilyn indicates that she is providing assistance for Latoya Berumen several days per week. Notes assisting with IADLs. Latoya indicates that she is completing ADLs on her own. Notes currently living at home, no assisted living or other assistance indicated. Marilyn indicates not taking levothyroxine or losartan currently. Latoya is currently living at home. Daughter now about 60 miles away. Review of Systems Constitutional: Negative. Psychiatric/Behavioral: Positive for confusion. Objective BP 128/74 Pulse 79 Resp 16 Wt 50.3 kg (111 lb) SpO2 99% BMI 19.66 kg/m Physical Exam Vitals and nursing note reviewed. Constitutional: Appearance: Normal appearance. HENT: Head: Normocephalic and atraumatic. Eyes: Conjunctiva/sclera: Conjunctivae normal. Neck: Thyroid: No thyromegaly. Vascular: Normal carotid pulses. No JVD. Cardiovascular: Rate and Rhythm: Normal rate and regular rhythm. Pulses: Carotid pulses are 2+ on the right side and 2+ on the left side. Radial pulses are 2+ on the right side and 2+ on the left side. Heart sounds: Normal heart sounds. Pulmonary: Effort: Pulmonary effort is normal. Breath sounds: Normal breath sounds. Abdominal: General: Bowel sounds are normal. Musculoskeletal: Right lower leg: No edema. Left lower leg: No edema. Skin: General: Skin is warm and dry. Neurological: Mental Status: She is alert. Mental status is at baseline. ALLERGIES Allergen Reactions Ativan [Lorazepam] Other: See Comments hallucination Levaquin [Levofloxa* Joint aches Lipitor [Atorvastat* Other: See Comments muscle and joint aches Succinylcholine Other: See Comments cannot break it down, delayed paralysis Sulfa (Sulfonamide * Rash Symbicort [Budesoni* Cough hoarseness Medications calcium carbonate/vitamin D3 (CALCIUM + D ORAL) Take 1 tablet by mouth once daily. MULTIVITAMIN ORAL Take 1 tablet by mouth once daily. 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 Encounter for immunization - ICD9: V03.89, ICD10: Z23 - PFIZER-BIONTECH COVID-19 VACCINE, AGE 12+ YR (HANSEN TOP) 4. Essential hypertension - ICD9: 401.9, ICD10: I10 Stable, currently controlled, continue to monitor. 5. History of diabetes mellitus - ICD9: V12.29, ICD10: Z86.39 - HGB A1C 6. Mixed hyperlipidemia - ICD9: 272.2, ICD10: E78.2 - LIPID PANEL BASIC - COMP METABOLIC PANEL 7. Need for community resource - ICD9: V49.89, ICD10: Z78.9 - PRIMARY CARE SOCIAL WORK CONSULT 8. 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 We will check lab work today and go forward from there. Previous notes indicate severe dementia, currently getting assistance from her friend Marilyn. Client indicates that her visit today that daughter is less involved currently due to social stressors, recent divorce. Reports recent nonpayment of bill. Marilyn indicates that daughter is not over often. Marilyn would like to speak with social welfare research worker and officer [phone] so she can provide her observations. Advised at visit that Latoya's private health information cannot be shared with her. Ibis Burkett APRN.ECONOMICS INSTRUCTOR Medical Decision Making: Problems: Moderate: 1+ chronic illnesses with change Data: Independent interpretation of test from other physician/QHCP Risk: Moderate: Drug management Medical Decision Making Level: 4 - Moderate documented in this encounter [facility] 01-08-2022 Miscellaneous Notes Yara, daughter of pt called and states mother is angry because she can't drive. Pt does not remember there was a letter sent to her regarding driving. Daughter has asked to have a copy of letter sent to her and she will give to pt and keep a copy in case pt looses it. Done. Tiffanie Tineo LPN documented in this encounter [facility] 12-11-2021 Miscellaneous Notes Sw spoke with patient daughter in law and offered Sw support regarding AL/Memory Care options. Daughter in law notes that right now patient daughter is currently handling patient care. Sw noted that if family needs any assistance with AL/Memory Care search to let SW know. Sw also noted that [employer] can be helpful when looking at Memory Care options. Daughter in law noted that at this moment patient daughter is handling patient care needs and will let this Sw know if family needs any further assistance. Sw left message for patient son to call Sw back to discuss Memory Care/AL options. [employer] is a good service that assists families when looking at different Memory Care/AL options documented in this encounter [facility] 11-26-2021 Instructions Matt Villalta MD - 11/26/2021 8:24 PM EDT We are going to make sure that records are up to date regarding problems with memory so that when you need to move to assisted living for help with your care, everything will be ready. You have had problems with progressively worsening memory so that you do not remember things well. When the care you need exceeds what family can provide, I recommend that you move into assisted living where they can help you. At this time, your memory impairment has worsened to the point that family needs to consider getting things ready for transition to assisted living when the time comes. documented in this encounter [facility] 11-26-2021 History of Present illness Narrative This note was created using Entredariter. Subjective Latoya Berumen is a 80 year old female. HISTORY Latoya Berumen is a 80 year old lady here for follow up appointment and for evaluation for Assisted Living/Memory Care. Noted that family has concerns about her worsening dementia. Thinks has driven recently though care taken away. Kept calling about flat tire, and now that car gone, wonders where it went. She repeats that wants to stay home. Thinks would go into depression if moved. Has her cats--2 in home and 1 outside. Thinks is getting along fine. Does not recall any problems she is having. Has had mice issues with cereal boxes on the floor. Noted issues with forgetting that fed cats. Still an issue.Opens many cans a day. Has friend who brings her to [place] [facility] and goes to [facility]. 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 No current facility-administered medications for this visit. ALLERGIES Allergen Reactions Ativan [Lorazepam] Other: See Comments hallucination Levaquin [Levofloxa* Joint aches Lipitor [Atorvastat* Other: See Comments muscle and joint aches Succinylcholine Other: See Comments cannot break it down, delayed paralysis Sulfa (Sulfonamide * Rash Symbicort [Budesoni* Cough hoarseness FAMILY HISTORY Problem Relation Age of Onset Diabetes Mother Diabetes Brother Diabetes Brother Coronary Artery Disease Sister Diabetes Sister Osteoporosis Sister Cancer Sister SARCOMA Social History Tobacco Use Smoking status: Never Smoker Smokeless tobacco: Never Used Vaping Use Vaping Use: Not on file Substance Use Topics Alcohol use: No Drug use: No Review of Systems Objective BP 128/82 Pulse 74 Wt 50.5 kg (111 lb 6.4 oz) BMI 19.73 kg/m Physical Exam Vitals reviewed. Constitutional: Appearance: She is well-developed. HENT: Head: Normocephalic and atraumatic. Right Ear: External ear normal. Left Ear: External ear normal. Nose: Nose normal. Eyes: Conjunctiva/sclera: Conjunctivae normal. Neck: Thyroid: No thyromegaly. Cardiovascular: Rate and Rhythm: Normal rate and regular rhythm. Pulses: Normal pulses. Heart sounds: Normal heart sounds. No murmur heard. No friction rub. No gallop. Pulmonary: Effort: Pulmonary effort is normal. Breath sounds: Normal breath sounds. Abdominal: General: Bowel sounds are normal. There is no distension. Palpations: Abdomen is soft. There is no mass. Tenderness: There is no abdominal tenderness. Musculoskeletal: General: No deformity. Normal range of motion. Lymphadenopathy: Cervical: No cervical adenopathy. Skin: General: Skin is warm and dry. Coloration: Skin is not jaundiced or pale. Findings: No rash. Neurological: General: No focal deficit present. Mental Status: She is alert and oriented to person, place, and time. Cranial Nerves: No cranial nerve deficit. Sensory: No sensory deficit. Motor: No abnormal muscle tone. Coordination: Coordination normal. Deep Tendon Reflexes: Reflexes normal. Psychiatric: Attention and Perception: Attention and perception normal. Mood and Affect: Mood and affect normal. Speech: Speech normal. Behavior: Behavior is cooperative. Cognition and Memory: Cognition is impaired. Memory is impaired. Hemoglobin A1C (%) Date Value 10/02/2020 5.6 12/24/2018 5.6 02/15/2018 5.4 09/10/2017 6.2 03/03/2017 6.3 Assessment and Plan ASSESSMENT/PLAN: 1. Dementia with behavioral disturbance, unspecified dementia type (HCC) - ICD9: 294.21, ICD10: F03.91 (primary diagnosis) Patient's son not able to take care of mother any more and wants to work on placement to keep her safe in Assisted Living/Memory care He is the only one along with his taking care of her and they are not able to do it anymore ('s mom recently--also had dementia). They will be searching for a place for placement. I agree with making arrangements for admission to Assisted Living/Memory care given the circumstances. - COMP METABOLIC PANEL - CBC - HGB A1C - TSH BLD - T4 FREE/FREE THYROX - T3 FREE BLD 2. 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 - TSH BLD - T4 FREE/FREE THYROX - T3 FREE BLD 3. IFG (impaired fasting glucose) - ICD9: 790.21, ICD10: R73.01 - COMP METABOLIC PANEL - HGB A1C Matt Villalta MD documented in this encounter [facility] documented as of this encounter (statuses as of 06/18/2023) 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 Ramos Pain in limb 01/11/2010 06/17/2023 Unspecified constipation 05/17/200812/2022 COMMON VARIABL IMMUNODEF 12/05/200612/2022 Overview: Was managed by Dr. Menchaca, but will be following with Dr. Pink now (since Dr. Pink is in [place] and because prefers to get IVIG infusion at [facility] because had been to [facility] for cancer treatment and prefers not to go there) UNCERTAIN BEHAVIOR - NEOPLASM SKIN 02/13/2006 05/14/2015 Unspecified hypertrophic and atrophic condition of skin 02/13/2006 05/14/2015 Sebaceous cyst 02/13/2006 06/17/2023 Esophageal reflux 10/28/2005 06/17/2023 Chronic rhinitis 10/28/2005 06/17/2023 Mixed hyperlipidemia 09/29/2005 023 OVERWEIGHT 02/21/2022 Preop exam for internal medicine 05/14/2015 documented as of this encounter (statuses as of 06/20/2023) [address]04-2006 History of Past illness Narrative* Problem Noted Date Resolved Date UNCERTAIN BEHAVIOR - NEOPLASM SKIN 02/13/2006 05/14/2015 Unspecified hypertrophic and atrophic condition of skin 02/13/2006 05/14/2015 Preop exam for internal medicine 05/14/2015 documented as of this encounter (statuses as of 12/11/2021) [address]04-2006 History of Past illness Narrative* Problem Noted Date Resolved Date UNCERTAIN BEHAVIOR - NEOPLASM SKIN 02/13/2006 05/14/2015 Unspecified hypertrophic and atrophic condition of skin 02/13/2006 05/14/2015 Preop exam for internal medicine 05/14/2015 documented as of this encounter (statuses as of 01/08/2022) [address]04-2006 History of Past illness Narrative* Problem Noted Date Resolved Date UNCERTAIN BEHAVIOR - NEOPLASM SKIN 02/13/2006 05/14/2015 Unspecified hypertrophic and atrophic condition of skin 02/13/2006 05/14/2015 Preop exam for internal medicine 05/14/2015 documented as of this encounter (statuses as of 01/18/2022) [address]04-2006 History of Past illness Narrative* Problem Noted Date Resolved Date UNCERTAIN BEHAVIOR - NEOPLASM SKIN 02/13/2006 05/14/2015 Unspecified hypertrophic and atrophic condition of skin 02/13/2006 05/14/2015 Diabetes mellitus without complication 5 02/04/2022 Preop exam for internal medicine 05/14/2015 documented as of this encounter (statuses as of 02/04/2022) [address]04-2006 History of Past illness Narrative* Problem Noted Date Resolved Date UNCERTAIN BEHAVIOR - NEOPLASM SKIN 02/13/2006 05/14/2015 Unspecified hypertrophic and atrophic condition of skin 02/13/2006 05/14/2015 Diabetes mellitus without complication 5 02/04/2022 Preop exam for internal medicine 05/14/2015 documented as of this encounter (statuses as of 02/10/2022) [address]-2006 History of Past illness Narrative* Problem Noted Date Resolved Date UNCERTAIN BEHAVIOR - NEOPLASM SKIN 02/13/2006 05/14/2015 Unspecified hypertrophic and atrophic condition of skin 02/13/2006 05/14/2015 Diabetes mellitus without complication 5 02/04/2022 Preop exam for internal medicine 05/14/2015 documented as of this encounter (statuses as of 02/11/2022) [facility]08-04-2006 History of Past illness Narrative* Problem Noted Date Resolved Date UNCERTAIN BEHAVIOR - NEOPLASM SKIN 02/13/2006 05/14/2015 Unspecified hypertrophic and atrophic condition of skin 02/13/2006 05/14/2015 Diabetes mellitus without complication 5 02/04/2022 OVERWEIGHT 02/21/2022 Preop exam for internal medicine 05/14/2015 documented as of this encounter (statuses as of 02/24/2022) [facility] History of Past illness Narrative* Problem Noted Date Resolved Date UNCERTAIN BEHAVIOR - NEOPLASM SKIN 02/13/2006 05/14/2015 Unspecified hypertrophic and atrophic condition of skin 02/13/2006 05/14/2015 Diabetes mellitus without complication 5 02/04/2022 OVERWEIGHT 02/21/2022 Preop exam for internal medicine 05/14/2015 documented as of this encounter (statuses as of 05/05/2022) [facility] History of Past illness Narrative* Problem Noted Date Resolved Date UNCERTAIN BEHAVIOR - NEOPLASM SKIN 02/13/2006 05/14/2015 Unspecified hypertrophic and atrophic condition of skin 02/13/2006 05/14/2015 Diabetes mellitus without complication 5 02/04/2022 OVERWEIGHT 02/21/2022 Preop exam for internal medicine 05/14/2015 documented as of this encounter (statuses as of 05/30/2022) [facility] History of Past illness Narrative* Problem Noted Date Resolved Date UNCERTAIN BEHAVIOR - NEOPLASM SKIN 02/13/2006 05/14/2015 Unspecified hypertrophic and atrophic condition of skin 02/13/2006 05/14/2015 Diabetes mellitus without complication 5 02/04/2022 OVERWEIGHT 02/21/2022 Preop exam for internal medicine 05/14/2015 documented as of this encounter (statuses as of 01/02/2023) [facility] History of Past illness Narrative* Problem Noted Date Resolved Date UNCERTAIN BEHAVIOR - NEOPLASM SKIN 02/13/2006 05/14/2015 Unspecified hypertrophic and atrophic condition of skin 02/13/2006 05/14/2015 Diabetes mellitus without complication 5 02/04/2022 OVERWEIGHT 02/21/2022 Preop exam for internal medicine 05/14/2015 documented as of this encounter (statuses as of 01/10/2023) [facility] History of Past illness Narrative* Problem Noted Date Diagnosed Date Resolved Date UNCERTAIN BEHAVIOR - NEOPLASM SKIN 02/13/2006 05/14/2015 Unspecified hypertrophic and atrophic condition of skin 02/13/2006 05/14/2015 Diabetes mellitus without complication 03/11/2005 02/04/2022 OVERWEIGHT 02/21/2022 Preop exam for internal medicine 05/14/2015 documented as of this encounter (statuses as of 01/26/2023) [facility] History of Past illness Narrative* Problem Noted Date Diagnosed Date Resolved Date UNCERTAIN BEHAVIOR - NEOPLASM SKIN 02/13/2006 05/14/2015 Unspecified hypertrophic and atrophic condition of skin 02/13/2006 05/14/2015 Diabetes mellitus without complication 03/11/2005 02/04/2022 OVERWEIGHT 02/21/2022 Preop exam for internal medicine 05/14/2015 documented as of this encounter (statuses as of 03/30/2023) [facility] History of Past illness Narrative* Problem Noted Date Diagnosed Date Resolved Date UNCERTAIN BEHAVIOR - NEOPLASM SKIN 02/13/2006 05/14/2015 Unspecified hypertrophic and atrophic condition of skin 02/13/2006 05/14/2015 Diabetes mellitus without complication 03/11/2005 02/04/2022 OVERWEIGHT 02/21/2022 Preop exam for internal medicine 05/14/2015 documented as of this encounter (statuses as of 04/17/2023) 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 Diagnosis Neurodegenerative dementia with behavioral disturbance- 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 Summary Purpose Family History No Family History Records Found Advance Directives No Advanced Directives Records Found Additional Source Comments Source Comments (unrecognize d section and content) In the event this informatio n is protected by the Federal Confidentiality of Alcohol and Drug Abuse Patient Records regulations: The Federal rules restrict any use of the information to criminally investigate or prosecute any alcohol or drug abuse patient.[facility] the event this information is protected by the Federal Confidentiality of Alcohol and Drug Abuse Patient Records regulations: The Federal rules restrict any use of the information to criminally investigate or prosecute any alcohol or drug abuse patient.[facility] the event this information is protected by the Federal Confidentiality of Alcohol and Drug Abuse Patient Records regulations: The Federal rules restrict any use of the information to criminally investigate or prosecute any alcohol or drug abuse patient.[facility] the event this information is protected by the Federal Confidentiality of Alcohol and Drug Abuse Patient Records regulations: The Federal rules restrict any use of the information to criminally investigate or prosecute any alcohol or drug abuse patient.[facility] the event this information is protected by the Federal Confidentiality of Alcohol and Drug Abuse Patient Records regulations: The Federal rules restrict any use of the information to criminally investigate or prosecute any alcohol or drug abuse patient.[facility] the event this information is protected by the Federal Confidentiality of Alcohol and Drug Abuse Patient Records regulations: The Federal rules restrict any use of the information to criminally investigate or prosecute any alcohol or drug abuse patient.[facility] the event this information is protected by the Federal Confidentiality of Alcohol and Drug Abuse Patient Records regulations: The Federal rules restrict any use of the information to criminally investigate or prosecute any alcohol or drug abuse patient.[facility] the event this information is protected by the Federal Confidentiality of Alcohol and Drug Abuse Patient Records regulations: The Federal rules restrict any use of the information to criminally investigate or prosecute any alcohol or drug abuse patient.[facility] the event this information is protected by the Federal Confidentiality of Alcohol and Drug Abuse Patient Records regulations: The Federal rules restrict any use of the information to criminally investigate or prosecute any alcohol or drug abuse patient.[facility] the event this information is protected by the Federal Confidentiality of Alcohol and Drug Abuse Patient Records regulations: The Federal rules restrict any use of the information to criminally investigate or prosecute any alcohol or drug abuse patient.[facility] the event this information is protected by the Federal Confidentiality of Alcohol and Drug Abuse Patient Records regulations: The Federal rules restrict any use of the information to criminally investigate or prosecute any alcohol or drug abuse patient.[facility] the event this information is protected by the Federal Confidentiality of Alcohol and Drug Abuse Patient Records regulations: The Federal rules restrict any use of the information to criminally investigate or prosecute any alcohol or drug abuse patient.[facility] Hospital[facility] the event this information is protected by the Federal Confidentiality of Alcohol and Drug Abuse Patient Records regulations: The Federal rules restrict any use of the information to criminally investigate or prosecute any alcohol or drug abuse patient.[facility] the event this information is protected by the Federal Confidentiality of Alcohol and Drug Abuse Patient Records regulations: The Federal rules restrict any use of the information to criminally investigate or prosecute any alcohol or drug abuse patient.[facility] Hospital[facility] the event this information is protected by the Federal Confidentiality of Alcohol and Drug Abuse Patient Records regulations: The Federal rules restrict any use of the information to criminally investigate or prosecute any alcohol or drug abuse patient.[facility] HospitalIn the event this information is protected by the Federal Confidentiality of Alcohol and Drug Abuse Patient Records regulations: The Federal rules restrict any use of the information to criminally investigate or prosecute any alcohol or drug abuse patient.[facility] Reason for Visit (unrecogniz ed section and content) Reason Comments requesting copy of a letter regarding dr cardoza Reason Comments Follow Up dementia Specialty Diagnoses / Procedures Referred By Baljit fischer Referred To Contact Internal Medicine / INTERNAL MEDICINE Diagnoses memory issues x 5 years getting worse Procedures 4C MD Pawan Dc Liza D, MD [address] [place] [address] Referral ID Status Reason Start Date Expiration Date Visits Requested Visits Authorized [id number] Authorized Patient Cleared - Qualified 100% FAS 11/26/2021 02/24/2022 99 99 Reason Comments Anxiety Reason Comments Results Reason Comments requesting expert evaluation Reason Comments Forms Specialty Diagnoses / Procedures Referred By Baljit fischer Referred To Contact Internal Medicine / INTERNAL MEDICINE Diagnoses forms for guardianship for pts son Procedures 4C EST Matt Hough MD [address] [place] [address] Referral ID Status Reason Start Date Expiration Date V isits Requested Visits Authorized [id number] Closed Financial Clearance Required - Self Pay Clearance Not Met -Financial Clearance Bypassed 03/07/2022 06/05/2022 1 1 Reason Comments Patient Update Reason Onset Date Comments Refill Request 01/01/2023 Reason Onset Date Comments Refill Request 01/10/2023 Reason Comments right shoulder pain Reason Onset Date Comments Population Health Navigation Outreach 03/30/2023 HCC High Reason Onset Date Comments Refill Request 04/15/2023 Reason Comments Forms Care Teams (unrecognized sec tion and content) Drill Operator Pneumatic Relationship Specialty Start Date End Date Matt Villalta MD [address] [place] [address] PCP - General Internal Medicine 09/09/10 Drill Operator Pneumatic Relationship Specialty Start Date End Date Matt Villalta MD [address] [place] [id number] PCP - General Internal Medicine 09/09/10 Drill Operator Pneumatic Relationship Specialty Start Date End Date Matt Villalta MD [address] [place] [id number] PCP - General Internal Medicine 09/09/10 Drill Operator Pneumatic Relationship Specialty Start Date End Date Matt Villalta MD [address] [place] [address] [place] [address] PCP - General Internal Medicine 09/09/10 Drill Operator Pneumatic Relationship Specialty Start Date End Date Matt Villalta MD [address] [place] [address] [place] [address] PCP - General Internal Medicine 09/09/10 Drill Operator Pneumatic Relationship Specialty Start Date End Date Matt Villalta MD [address] [place] [address] [place] [address] PCP - General Internal Medicine 09/09/10 Drill Operator Pneumatic Relationship Specialty Start Date End Date Matt Villalta MD [address] [place] [address] PCP - General Internal Medicine 09/09/10 Drill Operator Pneumatic Relationship Specialty Start Date End Date Matt Villalta MD [address] [place] [address] PCP - General Internal Medicine 09/09/10 Drill Operator Pneumatic Relationship Specialty Start Date End Date Matt Villalta MD [address] [place], [place] [address] PCP - General Internal Medicine 09/09/10 Drill Operator Pneumatic Relationship Specialty Start Date End Date Matt Villalta MD [address] [facility], [place] [id number] PCP - General Internal Medicine 09/09/10 Drill Operator Pneumatic Relationship Specialty Start Date End Date Matt Villalta MD [address] [place] [address] PCP - General Internal Medicine 09/09/10 Drill Operator Pneumatic Relationship Specialty Start Date End Date Matt Villalta MD [address] [place], [place] [id number] PCP - General Internal Medicine 09/09/10 INFORMATION SOURCE (unrecogn ized section and content) FOR RECORDS PERTAINING TO PATIENTS WHO ARE OR HAVE BEEN ENROLLED IN A CHEMICAL DEPENDENCY/SUBSTANCEABUSE PROGRAM, SOME INFORMATION MAY BE OMITTED. This clinical summary was aggregated from multiple sources. Caution should be exercised in using it in the provision of clinical care. This summary normalizes information from multiple sources, and as a consequence, information in this document may materially change the coding, format and clinical context of patient data. In addition, data may be omitted in some cases. CLINICAL DECISIONS SHOULD BE BASED ON THE PRIMARY CLINICAL RECORDS. [email or web address] [facility]. provides no warranty or guarantee of the accuracy or completeness of information in this document.
[2023-07-30 08:59] LABS: T4 Free Direct 1.15 ng/dL (0.76-1.46); Thyroid Stim Hormone (TSH) 3.54 uIU/mL (0.358-3.74)
== END ==
LOC: OLS.BROOKB 05:00
PROVIDERS: PCP Internal Medicine; Visit Provider Internal Medicine
DX: E03.9 Hypothyroidism, unspecified (principal)
CPT/HCPCS: 36415; 84439; 84443

== ENCOUNTER 2023-08-01 14:48 | Emergency (ER) | payer MEDICARE, SELFPAY ==
[2023-08-01 14:49] VITALS: BP 244/89; PULSE 66; RESP 16; TEMP 36.2; O2SAT 99; BMI 26.4
--- NOTE | 2023-08-01 14:55 | RAD_ITS ---
STUDY: X-RAY - RIGHT HAND, ATTENTION LITTLE FINGER REASON FOR EXAM: Female, 82 years old. injury -- R 5th TECHNIQUE: 3 view(s) of the finger were obtained. COMPARISON: None. FINDINGS: Normal metacarpal head. Normal metacarpophalangeal joint. Normal proximal phalanx. Normal middle phalanx. Normal distal phalanx. Normal proximal interphalangeal joint. Normal distal interphalangeal joint. RAD/Finger(s) Min 2 Views IMPRESSION: No evidence of acute fracture or dislocation. Electronically Signed: Vance Gao DO at 15:20 EST ,
--- NOTE | 2023-08-01 14:55 | RAD_ITS ---
STUDY: X-RAY - LEFT SHOULDER REASON FOR EXAM: Female, 82 years old. injury TECHNIQUE: 2 view(s) of the shoulder. COMPARISON: None. FINDINGS: There is demonstrated dislocation of the glenohumeral joint inferiorly. Normal acromioclavicular joint. Normal acromion. There is a transverse comminuted and angulated fracture at the surgical neck of the proximal humerus. The soft tissue structures are unremarkable. Normal visualized pulmonary apex. RAD/Shoulder min 2 Views IMPRESSION: Glenohumeral fracture or dislocation with angulated fracture at the surgical neck, recommend orthopedic consult. Electronically Signed: Vance Gao DO at 15:19 EST ,
--- NOTE | 2023-08-01 14:55 | CT_ITS ---
STUDY: CT BRAIN WITHOUT CONTRAST REASON FOR EXAM: Female, 82 years old. trauma RADIATION DOSAGE (If Supplied By Facility): CTDIvol = ( 44.99 ) mGy, DLP = ( 779.24 ) mGycm TECHNIQUE: Transaxial CT imaging of the brain was performed without administration of intravenous contrast material. Individualized dose optimization techniques were used for this CT. COMPARISON: 12/15/2021 CT head FINDINGS: Normal soft tissue structures. Normal calvarium. There is moderate cerebral atrophy with widening of the extra-axial spaces and ventricular dilatation. There are areas of decreased attenuation within the white matter tracts of the supratentorial brain, consistent with microvascular disease changes. Normal basal ganglia and thalami. Normal brainstem. Normal cerebellum. There is no intracranial hemorrhage. There are no findings of an acute ischemic infarction. Normal visualized paranasal sinuses. CT/Brain/Head without Contrast IMPRESSION: No evidence of acute intracranial bleed, mass or ischemia. Electronically Signed: Vance Gao DO at 15:18 EST ,
--- NOTE | 2023-08-01 14:56 | EDS_ITS ---
HPI HPI - Fall History of Present Illness Chief Complaint: Fall Informant: patient and EMS Narrative Narrative: History limited due to dementia but report from EMS states patient has dementia she is at [facility] living, she was walking and tripped and fell face forward to the ground. She is complaining of pain in her left shoulder, her right small finger, and her chin where she sustained an injury. There is no loss of consciousness. She does not feel nauseated. She denies headache or chest pain. PFSH PFSH Medical History Autoimmune disorder Dementia GERD (gastroesophageal reflux disease) HLD (hyperlipidemia) Hypertension Hypothyroidism TIA (transient ischemic attack) Home Medications metformin 500 mg tablet 500 mg PO BIDCM DM 04/12/13 [History Last Taken 03/05/20] donepezil 10 mg tablet 10 mg PO QHS #30 tabs 03/06/20 [Rx Last Taken Unknown] Allergy/AdvReac Type Severity Reaction Status Date / Time succinylcholine Allergy Severe Other Verified 08/01/23 14:54 [Succinylcholine] levofloxacin [From Levaquin] Allergy Mild Rash Verified 08/01/23 14:54 Sulfa (Sulfonamide Allergy Mild Rash Verified 08/01/23 14:54 Antibiotics) lorazepam AdvReac Intermediate Other Verified 08/01/23 14:54 atorvastatin [From Lipitor] AdvReac muscle Verified 08/01/23 14:54 aches Social History housing: custodial Smoking Status: Never smoker ROS ROS ED ROS Narrative Limited due to dementia Eyes Eyes: Denies diplopia ENT ENT ED: Denies ear pain, epistaxis or facial pain Cardiovascular Cardiovascular: Denies chest pain Respiratory/Chest Respiratory/Chest: Denies dyspnea Gastrointestinal Gastrointestinal: Denies abdominal pain or nausea Musculoskeletal Musculoskeletal: Reports extremity pain; Denies back pain or neck pain Integumentary Reports Abrasions; Denies abscess, laceration or rash Neurologic Neurologic: Denies headache(s), paresthesias or weakness EXAM Physical Exam Const Vital Signs: 08/01/23 14:49 08/01/23 15:00 Temperature 97.2 F L Temperature Source Temporal Pulse Rate 66 Respiratory Rate 16 Respiratory Effort Normal Blood Pressure 244/89 H Blood Pressure Mean 140 Pulse Ox 99 100 Oxygen Delivery Method Room Air Positive well nourished and well developed General Appearance ED: well developed and NAD HEENT Reports TM's clear and nasal mucous membranes and turbinates normal HEENT Narrative: Abrasion anterior chin, with a partial-thickness 0.5 cm laceration that does not distract, no bony tenderness, no trismus, no malocclusion no dental injury or other facial tenderness/trauma. No Dunn sign, no periorbital ecchymosis, no CSF otorhinorrhea. atraumatic Face and Sinus: Negative for facial tenderness Tympanic Membrane ED: Yes TM's clear Eyes PERRL and EOMs intact bilaterally Visual Acuity: other Other Details: no entrapment or pain with extraocular movements Neck full ROM and supple General: Negative for tenderness Chest Wall inspection of chest normal and palpation of chest normal Chest: symmetrical chest wall rise; Negative for crepitus or tenderness Resp normal respiratory effort and clear to auscultation bilaterally Percussion: other equal BS bilat Cardio no murmurs Rate: regular rate Rhythm: regular rhythm GI normal to inspection, nondistended, normoactive bowel sounds, soft to palpation and non-tender Back/Spine normal ROM Cervical Spine: Negative for cervical spine tenderness Thoracic Spine / Upper Back: Negative for thoracic spinal tenderness Lumbar Spine / Lower Back: Negative for lumbar spinal tenderness Extremity normal to inspection Extremity Narrative: Tenderness in the left proximal humerus and limited range of motion there due to pain. No acromioclavicular joint tenderness no deformity. Also tender in the proximal phalanx and PIPJ of the right small finger, she has limited range of motion of that but all tendon function appears to be intact, she can range the rest of her fingers on both hands without any difficulty. There is no tenderness or limited range of motion at the wrist or the elbow by a laterally. Full range of motion throughout both lower extremities without any apparent pain or signs of injury. General Extremety ED: Yes tenderness Neuro CN's II-XII intact bilaterally, moves all extremities, no focal motor deficits and no sensory deficits noted Marii Coma Scale: document GCS findings Spontaneous Obeys Commands Oriented 15 Sensorium / Orientation: awake, alert and oriented to person; Negative for oriented to place or oriented to time Psych mental status grossly normal and thought process normal Skin no wounds Lesions: no lesions Rashes: no rashes MDM MDM MDM Narrative Medical decision making narrative: Three-view x-ray series of the left shoulder were obtained and on my interpretation show surgical neck fracture proximal humerus. I reviewed the x- ray as well as the radiologist interpretation, he is questioning possibility of dislocation. On the scapular Y view the humeral head appears to be within the glenoid, and clinically she does not appear to be dislocated. CT of the head was obtained I reviewed the images and the report which I agree with, negative for acute injury. Three-view x-ray series of the right small finger on my interpretation negative for fracture. Radiology in agreement. Patient was given pain medications and placed her left upper extremity in a sling and swath. I did speak with orthopedics who who looked at the films remotely and agrees it does not appear to need any type of reduction and a sling and swath is appropria te. Also the patient's blood pressure is elevated even after we treated her pain, 215 systolic. Son states her blood pressure is commonly high and she is on multiple medications for it. We will give her a dose of clonidine to help bring it down out of the 200s here prior to discharge back to the custodial. History & Record Review Discussion w/independent historian: Patient and Family (son) Radiography Diagnostic Testing: Clinical Impression(s) from Imaging Studies Brain CT 08/01/23 14:55 IMPRESSION: No evidence of acute intracranial bleed, mass or ischemia. Electronically Signed: Vance Gao DO at 15:18 EST , Finger X-Ray 08/01/23 14:55 IMPRESSION: No evidence of acute fracture or dislocation. Electronically Signed: Vance Gao DO at 15:20 EST , Shoulder X-Ray 08/01/23 14:55 IMPRESSION: Glenohumeral fracture or dislocation with angulated fracture at the surgical neck, recommend orthopedic consult. Electronically Signed: Vance Gao DO at 15:19 EST , Management Discussion w/another healthcare provider: Thoracic Medicine Physician (ortho Dr. reeves) Discharge Plan Triage Chief Complaint: Fall ED Provider: Orestes Khan Dx/Rx/DC Orders Clinical Impression: Unspecified sprain of right little finger, initial encounter, Closed fracture of left proximal humerus, Abrasion of face, Episode of hypertension Instructions: ED Fracture, Shoulder Prescriptions: No Action metformin 500 MG tablet 500 mg PO BIDCM donepezil 10 MG tablet 10 mg PO QHS Qty: 30 0RF Primary Care Provider: Melvi Villalta Referrals: Jai Reeves DO [Med Staff - Active Staff] - As soon as possible (call for appt) Melvi Villalta MD [Primary Care Provider] - Disposition Disposition: Home, Self Care
[2023-08-01 15:00] VITALS: O2SAT 100
--- OUTSIDE RECORDS SUMMARY | 2023-08-01 15:28 | XMS RPT_ITS | CCD ---
Author Name Unknown Address [address] [place] [address] Organization [facility] Care Team Providers Care Property Worker Name Role Phone Matt Villalta MD Primary Care Provider TORI RAMSAY Referring Unavailable MATT VILLALTA Primary Care Unavailable TORI RAMSAY Attending Unavailable MATT VILLALTA Primary Care Unavailable Allergies Allergy Classification Reported Allergen(s) Allergy Type Date of Onset Reaction(s) Facility (17 sources) atorvastatin; Translations: [ATORVASTATIN] Drug Allergy 2 Other: See Comments [facility] Work Phone: (4 sources) Budesonide / formoterol; Translations: [BUDESONIDE-FORM OTEROL] Drug Allergy 5 Cough [facility] Work Phone: (17 sources) levoFLOXacin; Translations: [LEVOFLOXACIN] Drug Allergy 5 [facility] Work Phone: (17 sources) LORazepam; Translations: [LORAZEPAM] Drug Allergy 0 Other: See Comments [facility] (17 sources) Succinylcholine; Translations: [SUCCINYLCHOLINE ] Drug Allergy 5 Other: See Comments [facility] Work Phone: (17 sources) Sulfonamides (Antibiotic); Translations: [SULFA (SULFONAMIDE ANTIBIOTICS)] Propensity to adverse reactions 5 Rash [facility] Work Phone: (13 sources) Budesonide / formoterol Drug Allergy 5 Cough [facility] Work Phone: Medications Completed/Discontinued Medications Medication [...] Diastolic blood pressure 84 mm[Hg] Tori Devendra BENZENE WASHER OPERATOR.SENIOR CATEGORY MANAGER Work Phone: [facility] 06-17-2023 14:08-0500 Systolic blood pressure 132 mm[Hg] Tori Devendra BENZENE WASHER OPERATOR.SENIOR CATEGORY MANAGER Work Phone: [facility] 06-17-2023 14:06-0500 Body height 154.9 cm Tori Devendra BENZENE WASHER OPERATOR.SENIOR CATEGORY MANAGER Work Phone: [facility] 06-17-2023 14:06-0500 Body weight 62.14 kg Tori Devendra BENZENE WASHER OPERATOR.SENIOR CATEGORY MANAGER Work Phone: [facility] 06-17-2023 14:06-0500 Heart rate 87 /min Tori Devendra BENZENE WASHER OPERATOR.SENIOR CATEGORY MANAGER Work Phone: [facility] 06-17-2023 14:06-0500 SaO2% (BldA) [Mass fraction] 98 % Tori Devendra BENZENE WASHER OPERATOR.SENIOR CATEGORY MANAGER Work Phone: [facility] 03-07-2022 14:33-0400 Body weight 49.9 kg Matt Villalta MD Work Phone: [facility] 03-07-2022 14:33-0400 Diastolic blood pressure 78 mm[Hg] Matt Villalta MD Work Phone: [facility] 03-07-2022 14:33-0400 Heart rate 73 /min Matt Villalta MD Work Phone: [facility] 03-07-2022 14:33-0400 SaO2% (BldA) [Mass fraction] 97 % Matt Villalta MD Work Phone: [facility] 03-07-2022 14:33-0400 Systolic blood pressure 130 mm[Hg] Matt Villalta MD Work Phone: [facility] 02-04-2022 13:49-0400 Body weight 50.35 kg Ibis Burkett BENZENE WASHER OPERATOR.AUTOMATIC PATTERN EDGER Work Phone: [facility] 02-04-2022 13:49-0400 Diastolic blood pressure 74 mm[Hg] Ibis Burkett BENZENE WASHER OPERATOR.AUTOMATIC PATTERN EDGER Work Phone: [facility] 02-04-2022 13:49-0400 Heart rate 79 /min Ibis Burkett BENZENE WASHER OPERATOR.AUTOMATIC PATTERN EDGER Work Phone: [facility] 02-04-2022 13:49-0400 Respiratory rate 16 /min Ibis Burkett BENZENE WASHER OPERATOR.AUTOMATIC PATTERN EDGER Work Phone: [facility] 02-04-2022 13:49-0400 SaO2% (BldA) [Mass fraction] 99 % Ibis Burkett BENZENE WASHER OPERATOR.AUTOMATIC PATTERN EDGER Work Phone: [facility] 02-04-2022 13:49-0400 Systolic blood pressure 128 mm[Hg] Ibis Burkett BENZENE WASHER OPERATOR.AUTOMATIC PATTERN EDGER Work Phone: [facility] 11-26-2021 19:34-0400 Body weight 50.53 kg Matt Villalta MD Work Phone: [facility] 11-26-2021 19:34-0400 Diastolic blood pressure 82 mm[Hg] Matt Villalta MD Work Phone: [facility] 11-26-2021 19:34-0400 Heart rate 74 /min Matt Villalta MD Work Phone: [facility] 11-26-2021 19:34-0400 Systolic blood pressure 128 mm[Hg] Matt Villalta MD Work Phone: [facility] Encounters Encounter Date Encounter Type Care Provider Facility Start: 06-19-2023 Telephone encounter Tori humphrey BENZENE WASHER OPERATOR.SENIOR CATEGORY MANAGER Work Phone: [facility] [place] Procedures Date Procedure Procedure Detail Performing Clinician Start: 11-26-2022 Hemoglobin A1c/Hemoglobin.total in Blood [facility] Provider Plan of Treatment Date Care Activity Detail Author Start: 04-27-2028 Urine microalbumin profile [facility] Start: 06-17-2024 Hepatitis B screening Urine Albumin:Creatinine Ratio [facility] Start: 06-17-2024 Hepatitis B surface antibody level LDL Cholesterol [facility] Start: 12-17-2023 Hemoglobin A1c/Hemoglobin.total in Blood HbA1C [facility] Start: 06-27-2023 Hemoglobin A1c/Hemoglobin.total in Blood HbA1C [facility] Start: 06-17-2023 End: 09-16-2023 25-hydroxyvitamin D3 [Mass/volume] in Serum or Plasma [facility] Work Phone: Immunizations Immunization Date Immunization Notes Care Provider Fa cili 04-28-2023 influenza, injectabl e, quadrivalent, preservative free Tori Ramsay BENZENE WASHER OPERATOR.SENIOR CATEGORY MANAGER Work Phone: [facility] Work Phone: 02-04-2022 COVID-19 vaccine, ag e 12+ yr (PFIZER-BIONTECH - HANSEN TOP) Ibis Burkett BENZENE WASHER OPERATOR.AUTOMATIC PATTERN EDGER Work Phone: [facility] 03-12-2021 COVID-19 vaccine, ag e 12+ yr (PFIZER-BIONTECH - PURPLE TOP) Aracelis Schlechty [facility] 05-08-2020 influenza, high dose seasonal, preservative-free Aracelis Schlechty [facility] Work Phone: 05-08-2020 influenza virus vacc ine, unspecified formulation Jack Villarreal MA [facility] 04-26-2018 influenza, high dose seasonal, preservative-free Aracelis Schlechty [facility] 05-19-2016 influenza, high dose seasonal, preservative-free Aracelis Schlechty [facility] 04-25-2015 influenza, high dose seasonal, preservative-free Aracelis Schlechty [facility] 10-16-2014 pneumococcal conjuga te vaccine, 13 valent Aracelis Schlechty [facility] 04-15-2013 influenza virus vacc ine, unspecified formulation [facility] Work Phone: 03-28-2013 tetanus and diphther ia toxoids, adsorbed, preservative free, for adult use (2 Lf of tetanus toxoid and 2 Lf of diphtheria toxoid) [facility] Work Phone: 07-21-2012 influenza virus vacc ine, unspecified formulation [facility]acelisnicki [facility] 09-09-2010 pneumococcal polysaccharide vaccine, 23 valent Aracelis [facility] 05-18-2006 influenza virus vacc ine, unspecified formulation [facility] Work Phone: 05-12-2005 influenza virus vacc ine, unspecified formulation [facility] Work Phone: 03-11-2005 tetanus and diphther ia toxoids, adsorbed, preservative free, for adult use (2 Lf of tetanus toxoid and 2 Lf of diphtheria toxoid) [facility] Work Phone: 07-13-2000 pneumococcal polysaccharide vaccine, 23 valent Aracelisnicki [facility] Payers Date Payer Category Payer Private Health Insurance [id number] 2022 Medicare UHC AAR MEDICAR E [facility] MEDICARE O [id number] 2022-2022 [address] [address] [place] [address] O [id number] 2005 Medicare [id number] Social History Date Type Detail Facility Start: 01-07-2011 Tobacco smoking stat [facility] Never smoked tobacco [facility] Start: 03-12-2021 End: 06-17-2023 Alcohol intake Current non-drinker of alcohol (finding) [facility] Start: 1940 Sex Assigned At Not on file C [facility] Start: 11-16-2021 End: 03-07-2022 Exposure to SARS-CoV-2 (event) Not sure [facility] Start: 01-07-2011 Tobacco use and exposure Smokeless tobacco non-user [facility] Work Phone: Start: 02-04-2022 End: 08-07-2022 History of Social function [facility] Start: 02-04-2022 End: 08-07-2022 Tobacco use panel [facility] Adult Depression Screening Assessment 0 [facility] Medical Equipment Procedure Code Equipment Code Equipment Origin al Text Equipment Identifier Dates Duragen Plus 2x2 In - [id number] Start: 04-11-2010 Clinical Notes 02-13-2006 to [...] given to family. documented in this encounter [facility] 06-17-2023 Note HNO ID: [id number] Author: Tori Ramsay APRN.CNP Service: ? Author [...] for VA benefits. She is residing at [facility] in memory care. History of neurodegenerative dementia [...] mg, will co (more content not included)... [facility] 06-17-2023 History of Present illness Narrative SUBJECTIVE [...] for VA benefits. She is residing at [facility] in [facility]. History of neurodegenerative dementia with behavioral [...] RATIO RND UR 6. 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 Tori Ramsay APRN-ALLY documented in this encounter [facility] 04-15-2023 Miscellaneous Notes Patient has been identified by name and date of : [employer] phones for refill(s): Requested Prescriptions Pending Prescriptions [...] Diane Meyer LPN documented in this encounter [facility] 03-30-2023 Note HNO ID: [id number] Author: Jack Villarreal MA Service: ? 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) - [id number] Last Billed 03/07/2022 F33.41 - Recurrent major depressive disorder, in partial remission (HCC) - [id number] Last Billed 02/04/2022 Care Gaps to Address: [...] condition Payer: Payor: [employer]NA MEDICARE / Plan: [employer] / Product Type: HMO / Care Gap [...] Villarreal MA March 30, 2023 12:38 PM [facility] 03-30-2023 Note Patient Outreach (NE TNAV) LATOYA EBRUMEN ([id number]) 1940 F Date Time Provider Department 03/30/23 JACK VILLARREALV During your visit today, we recorded the following information about you: Jack Villarreal MA 03/30/2023 12:47 PM Signed POPULATION HEALTH NAVIGATION OUTREACH Action/ PCP appointment needed: YES, No showed Medicare Wellness HCC Gaps: 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 D83.9 - Common variable immunodeficiency (HCC) 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
D83.9 - Common variable immunodeficiency (HCC)
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
F33.41 - Recurrent major depressive disorder, in partial remission (HCC) - [id number] Last Billed 02/04/2022
Care Gaps to Address: [...] condition Payer: Payor: HUMANA MEDICARE / Plan: [employer] / Product Type: HMO / Care Gap [...] 2023 12:38 PM documented in this encounter [facility] 01-26-2023 Miscellaneous Notes Notified Sherice Bonilla [...] Lanette Teixeira LPN documented in this encounter [facility] 01-02-2023 Miscellaneous Notes Notified Sherice with [facility] [phone] and pt's son with information listed below. Tiffanie Tineo LPN TSH 8.57 on labs done in December at [facility] . Will increase dose. Need to recheck [...] Theresa Florian, RN documented in this encounter [facility] 05-30-2022 Miscellaneous Notes Patient's son returned [...] currently without Insurance. documented in this encounter [facility] 03-07-2022 History of Present illness Narrative [...] completed for son as well. Up to patrol judge to determine guardian ship. Patient is not [...] Matt Villalta MD documented in this encounter [facility] 02-24-2022 Miscellaneous Notes Faxed back to [...] . She states this is likely a [facility] code of some sort. She states it [...] for guardianship. She has appt Thursday with sped teacher. Asking to have faxed to her employer to [employer], fax [phone]. Aware you are out of office until Saturday 02/17. Please advise documented in this encounter [facility] 02-10-2022 Miscellaneous Notes Letter with below [...] Oneyda Chavez RN documented in this encounter [facility] 02-10-2022 Miscellaneous Notes noted Rogelio left [...] care/Assisted Living options. documented in this encounter [facility] 02-04-2022 History of Present illness Narrative [...] care so far. She was seen at [facility] December 15, 2021 for complaint of paresthesias. ER note indicates taking no medications currently. She was seen in the ER February 2020 with similar complaint noting that symptoms were likely due to high blood pressure. At that time she was refusing [facility] family stated they were going to [...] Marilyn would like to speak with social science instructor and officer [phone] so she can provide her observations. Advised at visit that Latoya's private health information cannot be shared with her. Ibis Burkett APRN.AUTOMATIC PATTERN EDGER Medical Decision Making: Problems: Moderate: 1+ chronic illnesses with change Data: Independent interpretation of test from other physician/QHCP Risk: Moderate: Drug management Medical Decision Making Level: 4 - Moderate documented in this encounter [facility] 01-08-2022 Miscellaneous Notes Yara, daughter of [...] Tiffanie Tineo LPN documented in this encounter [facility] 12-11-2021 Miscellaneous Notes Sw spoke with [...] Memory Care/AL options documented in this encounter [facility] 11-26-2021 Instructions Matt Villalta MD - [...] the time comes. documented in this encounter [facility] 11-26-2021 History of Present illness Narrative This note was created using Stypiriter. Subjective Latoya Berumen is a 80 year [...] day. Has friend who brings her to [place] on and goes to religious on Sundays. PAST MEDICAL HISTORY Diagnosis Date [...] Matt Villalta MD documented in this encounter [facility] documented as of this encounter (statuses as of 06/18/2023) [facility]08-10-2017 History of Past illness Narrative* Problem [...] because prefers to get IVIG infusion at [facility] because had been to [facility] for cancer treatment and prefers not to go there) UNCERTAIN BEHAVIOR - NEOPLASM SKIN 02/13/2006 05/14/2015 Unspecified hypertrophic and atrophic condition of skin 02/13/2006 05/14/2015 Sebaceous cyst 02/13/2006 06/17/2023 Esophageal reflux 10/28/2005 06/17/2023 Chronic rhinitis 10/28/2005 06/17/2023 Mixed hyperlipidemia 09/29/2005 023 OVERWEIGHT 02/21/2022 Preop exam for internal medicine 05/14/2015 documented as of this encounter (statuses as of 06/20/2023) [address]04-2006 History of Past illness Narrative* Problem Noted Date Resolved Date UNCERTAIN BEHAVIOR - NEOPLASM SKIN 02/13/2006 05/14/2015 Unspecified hypertrophic and atrophic condition of skin 02/13/2006 05/14/2015 Preop exam for internal medicine 05/14/2015 documented as of this encounter (statuses as of 12/11/2021) [address]2006 History of Past illness Narrative* Problem Noted Date Resolved Date UNCERTAIN BEHAVIOR - NEOPLASM SKIN 02/13/2006 05/14/2015 Unspecified hypertrophic and atrophic condition of skin 02/13/2006 05/14/2015 Preop exam for internal medicine 05/14/2015 documented as of this encounter (statuses as of 01/08/2022) [address]2006 History of Past illness Narrative* Problem Noted Date Resolved Date UNCERTAIN BEHAVIOR - NEOPLASM SKIN 02/13/2006 05/14/2015 Unspecified hypertrophic and atrophic condition of skin 02/13/2006 05/14/2015 Preop exam for internal medicine 05/14/2015 documented as of this encounter (statuses as of 01/18/2022) [address] History of Past illness Narrative* Problem Noted Date Resolved Date UNCERTAIN BEHAVIOR - NEOPLASM SKIN 02/13/2006 05/14/2015 Unspecified hypertrophic and atrophic condition of skin 02/13/2006 05/14/2015 Diabetes mellitus without complication 5 02/04/2022 Preop exam for internal medicine 05/14/2015 documented as of this encounter (statuses as of 02/04/2022) [address] History of Past illness Narrative* Problem Noted Date Resolved Date UNCERTAIN BEHAVIOR - NEOPLASM SKIN 02/13/2006 05/14/2015 Unspecified hypertrophic and atrophic condition of skin 02/13/2006 05/14/2015 Diabetes mellitus without complication 5 02/04/2022 Preop exam for internal medicine 05/14/2015 documented as of this encounter (statuses as of 02/10/2022) [address] History of Past illness Narrative* Problem Noted Date Resolved Date UNCERTAIN BEHAVIOR - NEOPLASM SKIN 02/13/2006 05/14/2015 Unspecified hypertrophic and atrophic condition of skin 02/13/2006 05/14/2015 Diabetes mellitus without complication 5 02/04/2022 Preop exam for internal medicine 05/14/2015 documented as of this encounter (statuses as of 02/11/2022) [facility] History of Past illness Narrative* Problem Noted Date Resolved Date UNCERTAIN BEHAVIOR - NEOPLASM SKIN 02/13/2006 05/14/2015 Unspecified hypertrophic and atrophic condition of skin 02/13/2006 05/14/2015 Diabetes mellitus without complication 5 02/04/2022 OVERWEIGHT 02/21/2022 Preop exam for internal medicine 05/14/2015 documented as of this encounter (statuses as of 02/24/2022) [facility] History of Past illness Narrative* Problem Noted Date Resolved Date UNCERTAIN BEHAVIOR - NEOPLASM SKIN 02/13/2006 05/14/2015 Unspecified hypertrophic and atrophic condition of skin 02/13/2006 05/14/2015 Diabetes mellitus without complication 5 02/04/2022 OVERWEIGHT 02/21/2022 Preop exam for internal medicine 05/14/2015 documented as of this encounter (statuses as of 05/05/2022) [facility] History of Past illness Narrative* Problem Noted Date Resolved Date UNCERTAIN BEHAVIOR - NEOPLASM SKIN 02/13/2006 05/14/2015 Unspecified hypertrophic and atrophic condition of skin 02/13/2006 05/14/2015 Diabetes mellitus without complication 5 02/04/2022 OVERWEIGHT 02/21/2022 Preop exam for internal medicine 05/14/2015 documented as of this encounter (statuses as of 05/30/2022) [facility] History of Past illness Narrative* Problem Noted Date Resolved Date UNCERTAIN BEHAVIOR - NEOPLASM SKIN 02/13/2006 05/14/2015 Unspecified hypertrophic and atrophic condition of skin 02/13/2006 05/14/2015 Diabetes mellitus without complication 5 02/04/2022 OVERWEIGHT 02/21/2022 Preop exam for internal medicine 05/14/2015 documented as of this encounter (statuses as of 01/02/2023) [facility] History of Past illness Narrative* Problem Noted Date Resolved Date UNCERTAIN BEHAVIOR - NEOPLASM SKIN 02/13/2006 05/14/2015 Unspecified hypertrophic and atrophic condition of skin 02/13/2006 05/14/2015 Diabetes mellitus without complication 5 02/04/2022 OVERWEIGHT 02/21/2022 Preop exam for internal medicine 05/14/2015 documented as of this encounter (statuses as of 01/10/2023) [facility] History of Past illness Narrative* Problem Noted Date Diagnosed Date Resolved Date UNCERTAIN BEHAVIOR - NEOPLASM SKIN 02/13/2006 05/14/2015 Unspecified hypertrophic and atrophic condition of skin 02/13/2006 05/14/2015 Diabetes mellitus without complication 03/11/2005 02/04/2022 OVERWEIGHT 02/21/2022 Preop exam for internal medicine 05/14/2015 documented as of this encounter (statuses as of 01/26/2023) [facility] History of Past illness Narrative* Problem Noted Date Diagnosed Date Resolved Date UNCERTAIN BEHAVIOR - NEOPLASM SKIN 02/13/2006 05/14/2015 Unspecified hypertrophic and atrophic condition of skin 02/13/2006 05/14/2015 Diabetes mellitus without complication 03/11/2005 02/04/2022 OVERWEIGHT 02/21/2022 Preop exam for internal medicine 05/14/2015 documented as of this encounter (statuses as of 03/30/2023) [facility] History of Past illness Narrative* Problem Noted Date Diagnosed Date Resolved Date UNCERTAIN BEHAVIOR - NEOPLASM SKIN 02/13/2006 05/14/2015 Unspecified hypertrophic and atrophic condition of skin 02/13/2006 05/14/2015 Diabetes mellitus without complication 03/11/2005 02/04/2022 OVERWEIGHT 02/21/2022 Preop exam for internal medicine 05/14/2015 documented as of this encounter (statuses as of 04/17/2023) [facility] Diagnosis Dementia with behavioral disturbance, unspecified dementia type (HCC)- Primary 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 IFG (impaired fasting glucose) Impaired fasting glucose [facility] Diagnosis Neurodegenerative dementia without behavioral disturbance (HCC)- Primary Encounter for immunization Need for other specified prophylactic vaccination against single bacterial disease Essential hypertension Unspecified essential hypertension History of diabetes mellitus Personal history of other endocrine, metabolic, and immunity disorders Mixed hyperlipidemia Need for community resource 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 [facility] Diagnosis Neurodegenerative dementia with behavioral disturbance- Primary [facility]* Diagnosis 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 [facility] Diagnosis 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 [facility]* Diagnosis Neurodegenerative dementia with behavioral disturbance (HCC)- Primary Essential hypertension Unspecified essential hypertension Anxiety Anxiety state, unspecified Recurrent major depressive disorder, in partial remission (HCC) Diet-controlled diabetes mellitus (HCC) 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 Vitamin D deficiency Unspecified vitamin D deficiency Encounter for therapeutic drug monitoring documented in this encounter [facility] Summary Purpose Family History No Family [...] or prosecute any alcohol or drug abuse patient.[facility] the event this information is protected by the Federal Confidentiality of Alcohol and Drug Abuse Patient Records regulations: The Federal rules restrict any use of the information to criminally investigate or prosecute any alcohol or drug abuse patient.[facility] Hospital[facility] the event this information is protected by the Federal Confidentiality of Alcohol and Drug Abuse Patient Records regulations: The Federal rules restrict any use of the information to criminally investigate or prosecute any alcohol or drug abuse patient.[facility] HospitalIn the event this information is protected by the Federal Confidentiality of Alcohol and Drug Abuse Patient Records regulations: The Federal rules restrict any use of the information to criminally investigate or prosecute any alcohol or drug abuse patient.[facility] HospitalIn the event this information is protected by the Federal Confidentiality of Alcohol and Drug Abuse Patient Records regulations: The Federal rules restrict any use of the information to criminally investigate or prosecute any alcohol or drug abuse patient.[facility] HospitalIn the event this information is protected by the Federal Confidentiality of Alcohol and Drug Abuse Patient Records regulations: The Federal rules restrict any use of the information to criminally investigate or prosecute any alcohol or drug abuse patient.[facility] HospitalIn the event this information is protected by the Federal Confidentiality of Alcohol and Drug Abuse Patient Records regulations: The Federal rules restrict any use of the information to criminally investigate or prosecute any alcohol or drug abuse patient.[facility] HospitalIn the event this information is protected by the Federal Confidentiality of Alcohol and Drug Abuse Patient Records regulations: The Federal rules restrict any use of the information to criminally investigate or prosecute any alcohol or drug abuse patient.[facility] HospitalIn the event this information is protected by the Federal Confidentiality of Alcohol and Drug Abuse Patient Records regulations: The Federal rules restrict any use of the information to criminally investigate or prosecute any alcohol or drug abuse patient.[facility] HospitalIn the event this information is protected by the Federal Confidentiality of Alcohol and Drug Abuse Patient Records regulations: The Federal rules restrict any use of the information to criminally investigate or prosecute any alcohol or drug abuse patient.[facility] HospitalIn the event this information is protected by the Federal Confidentiality of Alcohol and Drug Abuse Patient Records regulations: The Federal rules restrict any use of the information to criminally investigate or prosecute any alcohol or drug abuse patient.[facility] HospitalIn the event this information is protected by the Federal Confidentiality of Alcohol and Drug Abuse Patient Records regulations: The Federal rules restrict any use of the information to criminally investigate or prosecute any alcohol or drug abuse patient.[facility] HospitalIn the event this information is protected by the Federal Confidentiality of Alcohol and Drug Abuse Patient Records regulations: The Federal rules restrict any use of the information to criminally investigate or prosecute any alcohol or drug abuse patient.[facility] HospitalIn the event this information is protected by the Federal Confidentiality of Alcohol and Drug Abuse Patient Records regulations: The Federal rules restrict any use of the information to criminally investigate or prosecute any alcohol or drug abuse patient.[facility] HospitalIn the event this information is protected by the Federal Confidentiality of Alcohol and Drug Abuse Patient Records regulations: The Federal rules restrict any use of the information to criminally investigate or prosecute any alcohol or drug abuse patient.[facility] HospitalIn the event this information is protected by the Federal Confidentiality of Alcohol and Drug Abuse Patient Records regulations: The Federal rules restrict any use of the information to criminally investigate or prosecute any alcohol or drug abuse patient.[facility] Reason for Visit (unrecogniz ed section and content) Reason Comments requesting copy of a letter regarding dr cardoza Reason Comments Follow Up dementia Specialty Diagnoses / Procedures Referred By Baljit fischer Referred To Contact Internal Medicine / INTERNAL MEDICINE Diagnoses memory issues x 5 years getting worse Procedures 4C MD Pawan Dc Liza D, MD [address] [place] [address] Referral ID Status Reason Start Date Expiration Date Visits Requested Visits Authorized [id number] Authorized Patient Cleared - Qualified 100% FAS 11/26/2021 02/24/2022 99 99 Reason Comments Anxiety Reason Comments Results Reason Comments requesting expert evaluation Reason Comments Forms Specialty Diagnoses / Procedures Referred By Baljit fischer Referred To Contact Internal Medicine / INTERNAL MEDICINE Diagnoses forms for guardianship for pts son Procedures 4C EST Matt Hough MD [address] [place] [address] Referral ID Status Reason Start Date Expiration Date V isits Requested Visits Authorized [id number] Closed Financial Clearance Required - Self Pay [...] Care Teams (unrecognized sec tion and content) Property Worker Relationship Specialty Start Date End Date Matt Villalta MD [address] [place] [address] PCP - General Internal Medicine 09/09/10 Property Worker Relationship Specialty Start Date End Date Matt Villalta MD [address] [place] [id number] PCP - General Internal Medicine 09/09/10 Property Worker Relationship Specialty Start Date End Date Matt Villalta MD [address] [place] [id number] PCP - General Internal Medicine 09/09/10 Property Worker Relationship Specialty Start Date End Date Matt Villalta MD [address] [place] [address] [place] [address] PCP - General Internal Medicine 09/09/10 Property Worker Relationship Specialty Start Date End Date Matt Villalta MD [address] [place] [address] [place] [address] PCP - General Internal Medicine 09/09/10 Property Worker Relationship Specialty Start Date End Date Matt Villalta MD [address] [place] [address] [place] [address] PCP - General Internal Medicine 09/09/10 Property Worker Relationship Specialty Start Date End Date Matt Villalta MD [address] [place] [address] PCP - General Internal Medicine 09/09/10 Property Worker Relationship Specialty Start Date End Date Matt Villalta MD [address] [place] [address] PCP - General Internal Medicine 09/09/10 Property Worker Relationship Specialty Start Date End Date Matt Villalta MD [address] [place], [place] [id number] PCP - General Internal Medicine 09/09/10 Property Worker Relationship Specialty Start Date End Date Matt Villalta MD [address] [facility], [place] [address] PCP - General Internal Medicine 09/09/10 Property Worker Relationship Specialty Start Date End Date Matt Villalta MD [address] [place] [address] PCP - General Internal Medicine 09/09/10 Property Worker Relationship Specialty Start Date End Date Matt Villalta MD [address] [place], [place] [address] PCP - General Internal Medicine 09/09/10 INFORMATION [...] BE BASED ON THE PRIMARY CLINICAL RECORDS. [facility]. provides no warranty or guarantee of the accuracy or completeness of information in this document.
--- NOTE | 2023-08-01 16:26 | ED.RN ---
[facility] CALLED, ETA 90 MIN-2 HOURS ([id number])
[2023-08-01 16:32] VITALS: BP 218/82
--- NOTE | 2023-08-01 16:34 | ED.RN ---
report called to Aishwarya zhang [facility]. updated on patients glenohumeral fracture. pt will be in sling and swathe and given clonidine for high blood pressure
[2023-08-01] MEDS: cloNIDine HCl 0.1 MG Tablet 0.100000000000000006 MG PO (16:41)
[2023-08-01] MEDS: Morphine 2 MG/ML Syringe IM (16:49)
[2023-08-01 17:29] VITALS: BP 197/80; PULSE 69; RESP 14; O2SAT 97
--- NOTE | 2023-08-01 18:28 | ED.RN ---
CALLED [facility] FOR AN UPDATED ETA, THEY SAID IT WOULD BE AN ADDITIONAL 2 HOURS (SO 2029). REQUESTED THEM TO [facility], THEY SAID THEY WOULD.
--- NOTE | 2023-08-01 18:37 | ED.RN ---
PT AND SON UPDATED TRANSPORT WILL BE DELAYED. RN STATES THEY ARE CURRENTLY TRYING TO FIND ANOTHER TRANSPORT SERVICE. PT GIVEN WATER, SANDWICH AND APPLESAUCE.
[2023-08-01 19:00] VITALS: BP 141/75; PULSE 99; RESP 16; O2SAT 97
--- NOTE | 2023-08-01 19:04 | ED.RN ---
CALLED [facility] FOR AN UPDATE AT 1858 ON THE REQUESTED [facility], THEY SAID THEY TRIED [facility] AND MARCEL MCDANIEL NEITHER HAD AVAILABILITY. GOING TO TRY DANIELLE CASTELLANOS AND STEFANY AFTER PHONE CALL.
--- NOTE | 2023-08-01 19:13 | ED.RN ---
[facility] CALL[facility] BACK AT 1910 WITH AN UPDATE ON THE SECOND [facility] REQUEST, THEY TRIED [facility], [facility], AND [facility]. ALL UNAVAILABLE/ BACKED UP WITH CALLS.
--- NOTE | 2023-08-01 20:55 | ED.RN ---
CALLED [facility] AT 2030 BECAUSE STILL NOT YET ARRIVED. THEY SAID THEY'D BE HERE WITH IN THE HOUR. I TOLD THEM I WOULD CALL AGAIN THEN AT 2100.
--- NOTE | 2023-08-01 21:08 | ED.RN ---
CALLED [facility] AGAIN AT 2100 ASKING HOW FAR OUT THE SQUAD WAS, THEY SAID ABOUT 11 MINUTES.
--- NOTE | 2023-08-01 21:21 | ED.RN ---
[facility] ARRIV[facility] AT 2114
[2023-08-01 21:25] VITALS: BP 154/70; PULSE 89; RESP 16; O2SAT 97
--- NOTE | 2023-08-01 21:25 | NURSING ---
[facility] FOR INTELLIGENCE ANALYST, REPORT GIVEN.
== END 2023-08-01 21:29 | disposition skilled nursing facility (03) ==
PROVIDERS: Emergency Provider Emergency Medicine; PCP Internal Medicine; Visit Provider Emergency Medicine
DX: S01.81XA Laceration without foreign body of other part of head, initial encounter (principal); F03.90 Unspecified dementia, unspecified severity, without behavioral disturbance, psychotic disturbance, mood disturbance, and anxiety; S63.616A Unspecified sprain of right little finger, initial encounter; S42.212A Unspecified displaced fracture of surgical neck of left humerus, initial encounter for closed fracture; W01.0XXA Fall on same level from slipping, tripping and stumbling without subsequent striking against object, initial encounter; I10 Essential (primary) hypertension; Y92.099 Unspecified place in other non-institutional residence as the place of occurrence of the external cause; E78.5 Hyperlipidemia, unspecified
CPT/HCPCS: 70450; 73030; 73140; 96372; 99282

== ENCOUNTER → 2024-04-29 | Outpatient (REF) | payer MEDICARE, SELFPAY ==
[2024-04-29 08:07] LABS: ALB/GLOB Ratio 1.2 RATIO (0.9-2.4); AST(SGOT) 12 U/L (15-37); Alanine Aminotransfer ALT/SGPT 17 U/L (13-56); Albumin, Serum 3.7 g/dL (3.2-5.0); Alkaline Phosphatase 76 U/L (45-117); Anion Gap 7 (5-15); BUN 13 mg/dL (7-18); BUN/Creat Ratio 13.8 RATIO (10-20); Calcium,Total 9.9 mg/dL (8.5-10.1); Chloride 98 mmol/L (98-107); Creatinine, Serum 0.94 mg/dL (0.55-1.02); EST Glomerular Filtration Rate 60 mL/min (>60); Est Glom Filt Rate - Afr Amer 73 mL/min (>60); Globulin 3.1 g/dL (2.2-4.2); Glucose 318 mg/dL (74-106); Protein, Total 6.8 g/dL (6.4-8.2); Sodium Level 132 mmol/L (136-145)
[2024-04-29 08:27] LABS: Hemoglobin A1c 9.8 % (3.8-5.6)
== END ==
LOC: OLS.BROOKB 05:00
PROVIDERS: PCP Internal Medicine; Visit Provider Internal Medicine
DX: I10 Essential (primary) hypertension (principal); E78.00 Pure hypercholesterolemia, unspecified; K21.9 Gastro-esophageal reflux disease without esophagitis; F33.41 Major depressive disorder, recurrent, in partial remission; Z79.899 Other long term (current) drug therapy
CPT/HCPCS: 36415; 80053; 83036

== ENCOUNTER 2024-06-01 16:51 | Emergency (ER) | payer MEDICARE, SELFPAY ==
[2024-06-01 16:51] VITALS: BP 187/98; PULSE 74; RESP 19; TEMP 36; O2SAT 94; BMI 26.3
--- NOTE | 2024-06-01 17:38 | ED.VIS.FALL ---
HPI HPI - Fall History of Present Illness Chief Complaint: Fall Informant: patient, family and SNF Occured/Mechanism Occurred: Today Mechanism/Context: Yes same level fall Usually ambulates: Without assistance Pain/Injury Pain Location: head Worsened by: Nothing Relieved by: Nothing Associated Symptoms Associated Symptoms: Negative for Parasthesias, Weakness or Loss of consciousness Narrative Narrative: Patient presents after a fall that occurred today. Patient was at dinner at the extended care facility where she lives. Patient fell and hit her head. Staff at the extended care facility states patient did not have any loss of consciousness. Patient denies any nausea or vomiting. Patient was only alert and oriented to self which is her normal per jail staff. Patient is unsure of her last tetanus. Prior records were reviewed. There is no tetanus immunization noted in previous medication orders. [facility] Medical History Closed fracture of left proximal humerus Left shoulder pain GERD (gastroesophageal reflux disease) HTN (hypertension) Dementia Hypercholesteremia Fall Dementia HLD (hyperlipidemia) TIA (transient ischemic attack) Autoimmune disorder GERD (gastroesophageal reflux disease) Hypertension Hypothyroidism Home Medications ?Medication ?Instructions ?Recorded ?Last Taken ?Type acetaminophen 500 mg capsule 500 mg PO Q6H PRN 08/10/23 Unknown History cholecalciferol (vitamin D3) 50 50 mcg PO DAILY 08/10/23 Unknown History mcg (2,000 unit) capsule citalopram 20 mg tablet mg PO 08/10/23 Unknown History donepezil 5 mg tablet mg PO 08/10/23 Unknown History levothyroxine 50 mcg tablet mcg PO 08/10/23 Unknown History quetiapine 25 mg tablet mg PO 08/10/23 Unknown History olopatadine 0.1 % eye drops 1 drp ophthalmic (eye) BID 09/21/23 Unknown History Allergy/AdvReac Type Severity Reaction Status Date / Time succinylcholine Allergy Severe Other Verified 09/21/23 09:50 (Succinylcholine) levofloxacin (From Levaquin) Allergy Mild Rash Verified 09/21/23 09:50 Sulfa (Sulfonamide Allergy Mild Rash Verified 09/21/23 09:50 Antibiotics) lorazepam AdvReac Intermediate Other Verified 09/21/23 09:50 atorvastatin (From Lipitor) AdvReac muscle Verified 09/21/23 09:50 aches Social History housing: jail Smoking Status: Never smoker ROS ROS ED Review of Systems ROS Unobtainable: due to mental status EXAM Physical Exam Const Vital Signs: 06/01/24 16:51 06/01/24 17:21 Temperature 96.8 F L Temperature Source Temporal Pulse Rate 74 Respiratory Rate 19 H Respiratory Effort Normal Non-Labored Respiratory Depth Normal Respiratory Pattern Normal Blood Pressure 187/98 H Blood Pressure Mean 127 Pulse Ox 94 Oxygen Delivery Method Room Air Room Air Positive well nourished and well developed General Appearance ED: well developed and NAD HEENT HEENT Narrative: There is an 8.5 cm full-thickness stellate, T-shaped laceration over the left forehead. There is moderate gapping of the wound margins. There is no bony crepitance or step-off. There is no foreign body noted. There is moderate bleeding. Eyes PERRL Neck full ROM and supple Neuro CN's II-XII intact bilaterally, moves all extremities, no focal motor deficits and no sensory deficits noted Sensorium / Orientation: alert, oriented to person and orientation impaired; Negative for oriented to place or oriented to time MDM MDM MDM Narrative Medical decision making narrative: Patient does not take any anticoagulants. There is no loss of consciousness. Therefore, I do not feel patient needs CT scan of the head at this time. The wound was cleaned and irrigated with copious amounts normal saline. The wound was anesthetized locally with 1% lidocaine with epinephrine. The wound was closed with 4 simple interrupted #5-0 Vicryl subcutaneous sutures and 17 simple interrupted #5-0 Ethilon sutures. Patient tolerated procedure well. Bacitracin dressing was applied. Patient was instructed to follow-up with her primary care physician in 5 days for wound recheck and suture removal. Patient and family understood and were agreeable with the plan. All questions were answered. Procedures Lacerations Left forehead: Length: 8.5 cm Depth: Sub Q Shape: Stellate Prep: Sterile Conditions and Chlorhexadine Laceration repair: Irrigated, Lidocaine with epi, Local, Skin sutures (17 simple interrupted #5-0 Ethilon sutures), Subcutaneous sutures (4 simple interrupted #5-0 Vicryl sutures) and Wound explored Irrigated (ml): 100 Number of Sutures/Donell: 21 Suture Information: Vicryl, Ethilon and 5-0 Discharge Plan Triage Chief Complaint: Fall ED Provider: Dariel Faith Dx/Rx/DC Orders Clinical Impression: Laceration of forehead, Fall, Head injury Instructions: ED Head Injury (Adult), ED FACIAL LACERATION Suture Tape, ED Laceration Minimize Scars Prescriptions: No Action acetaminophen 500 mg capsule 500 mg PO Q6H PRN citalopram 20 mg tablet PO donepezil 5 mg tablet PO levothyroxine 50 mcg tablet PO quetiapine 25 mg tablet PO cholecalciferol (vitamin D3) 50 mcg (2,000 unit) capsule 50 mcg PO DAILY olopatadine 0.1 % drops 1 drp ophthalmic (eye) BID Rx Instructions: separate doses by at least 6-8 hours Primary Care Provider: Melvi Villalta Referrals: Melvi Villalta MD [Primary Care Provider] - 5 Days for suture removal Print Language: Nauruan Disposition Disposition: Group Home Facility Discharge Location: [facility]
[2024-06-01] MEDS: Diphth,Pertuss(Acell),Tet Vac 0.5 ML Vial IM (17:43)
[2024-06-01] MEDS: Lidocaine 1% /Epi 1:100 (20ml) 20 ML Vial INFILT (17:43)
[2024-06-01] MEDS: Lidocaine/Epi/Tetracaine 50 ML 1 APPLIC TOPICAL (17:43)
--- NOTE | 2024-06-01 18:05 | ED.RN ---
THIS RN NOTIFIED DR. HEARN OF PTS WOUND HAS SIGNIFICANT SWELLING, JAGGED APPEARANCES, AND BLEEDING THROUGH 2ND [address]AD[address] ACKNOWLEDGED AND NO NEW ORDERS AT THIS TIME.
--- NOTE | 2024-06-01 18:26 | ED.RN ---
DR. HEARN NOTIFIED OF BLEEDING THROUGH 2ND ABD PAD. ACKNOWLEDGED. NO FURTHER ORDERS AT THIS TIME.
[2024-06-01 19:30] VITALS: BP 161/74; PULSE 67; RESP 14; TEMP 36.4; O2SAT 97
== END 2024-06-01 19:57 | disposition skilled nursing facility (03) ==
LOC: ED 19:30
PROVIDERS: Emergency Provider Emergency Medicine; PCP Internal Medicine; Referring Provider Emergency Medicine; Visit Provider Emergency Medicine
DX: S01.81XA Laceration without foreign body of other part of head, initial encounter (principal); F03.90 Unspecified dementia, unspecified severity, without behavioral disturbance, psychotic disturbance, mood disturbance, and anxiety; W18.30XA Fall on same level, unspecified, initial encounter; Y92.129 Unspecified place in nursing home as the place of occurrence of the external cause; I10 Essential (primary) hypertension; E03.9 Hypothyroidism, unspecified; E78.00 Pure hypercholesterolemia, unspecified; Z88.2 Allergy status to sulfonamides; Z86.73 Personal history of transient ischemic attack (TIA), and cerebral infarction without residual deficits; Z79.899 Other long term (current) drug therapy; Z79.890 Hormone replacement therapy; Z23 Encounter for immunization
CPT/HCPCS: 12054; 90471; 90715; 99285

== ENCOUNTER → 2024-06-23 | Outpatient (REF) | payer MEDICARE, SELFPAY ==
[2024-06-23 08:07] LABS: Bacteria 0 SEEN /hpf (None Seen); Mucous, Urine 0 SEEN /hpf (<or=2+); Red Blood Cells-Urine 0 SEEN /hpf (0-5)
[2024-06-23 08:47] LABS: Color, Urine Yellow (Yellow); Glucose, Dipstick 1000 mg/dl (Normal); Ketone-Dipstick Negative (Negative); Leukocyte Esterase-Dipstick 25 /ul (Negative); Nitrite-Dipstick Negative (Negative); Occult Blood-Urine Negative /ul (Negative); Protein-Dipstick Negative (Negative); Urine Bilirubin Dipstick Negative (Negative); Urine Clarity Clear (Clear); Urine Urobilinogen Normal (Normal)
[2024-06-23 08:57] LABS: Squamous Epithelial Cells - UA 0-5 SEEN /hpf (5-10); White Blood Cells 0-5 SEEN /hpf (0-5)
== END ==
LOC: OLS.BROOKB
PROVIDERS: PCP Internal Medicine; Visit Provider Internal Medicine
DX: N39.0 Urinary tract infection, site not specified (principal)
CPT/HCPCS: 81001; 87086; 87088

== ENCOUNTER → 2024-08-05 | Outpatient (REF) | payer MEDICARE, SELFPAY ==
[2024-08-05 07:59] LABS: AST(SGOT) 10 U/L (15-37); Alanine Aminotransfer ALT/SGPT 17 U/L (13-56); Albumin, Serum 3.1 g/dL (3.2-5.0); Alkaline Phosphatase 72 U/L (45-117); Anion Gap 5 (5-15); BUN 10 mg/dL (7-18); BUN/Creat Ratio 11.1 RATIO (10-20); Calcium,Total 9.6 mg/dL (8.5-10.1); Chloride 100 mmol/L (98-107); EST Glomerular Filtration Rate 64 mL/min (>60); Est Glom Filt Rate - Afr Amer 77 mL/min (>60); Glucose 304 mg/dL (74-106); Potassium 4.3 mmol/L (3.5-5.1); Protein, Total 6.1 g/dL (6.4-8.2); Sodium Level 132 mmol/L (136-145)
== END ==
LOC: OLS.BROOKB 05:00
PROVIDERS: PCP Internal Medicine; Visit Provider Internal Medicine
DX: I10 Essential (primary) hypertension (principal); E78.00 Pure hypercholesterolemia, unspecified
CPT/HCPCS: 36415; 80053

== ENCOUNTER → 2024-08-15 | Outpatient (REF) | payer MEDICARE, SELFPAY ==
[2024-08-15 09:14] LABS: ALB/GLOB Ratio 1.1 RATIO (0.9-2.4); AST(SGOT) 9 U/L (15-37); Alanine Aminotransfer ALT/SGPT 18 U/L (13-56); Albumin, Serum 3.3 g/dL (3.2-5.0); Alkaline Phosphatase 77 U/L (45-117); Anion Gap 7 (5-15); BUN 13 mg/dL (7-18); Calcium,Total 9.4 mg/dL (8.5-10.1); Chloride 97 mmol/L (98-107); EST Glomerular Filtration Rate 56 mL/min (>60); Est Glom Filt Rate - Afr Amer 68 mL/min (>60); Globulin 3.1 g/dL (2.2-4.2); Glucose 339 mg/dL (74-106); Potassium 4.1 mmol/L (3.5-5.1); Protein, Total 6.4 g/dL (6.4-8.2); Sodium Level 130 mmol/L (136-145)
== END ==
LOC: OLS.BROOKB 05:00
PROVIDERS: PCP Internal Medicine; Visit Provider Internal Medicine
DX: I10 Essential (primary) hypertension (principal); E78.00 Pure hypercholesterolemia, unspecified
CPT/HCPCS: 36415; 80053

== ENCOUNTER 2024-09-07 08:09 | Emergency (ER) | payer MEDICARE, SELFPAY ==
[2024-09-07 08:11] VITALS: BP 186/80; PULSE 72; RESP 18; TEMP 36.7; O2SAT 95; BMI 25.2
--- NOTE | 2024-09-07 08:52 | CT_ITS ---
PROCEDURE: COMPUTED TOMOGRAPHY OF THE CERVICAL SPINE REASON FOR EXAM: PATIENT FELL. TECHNIQUE: Contiguous axial scans of 2.5 mm slice thicknesses without intravenous contrast. Sagittal and coronal reconstruction images were also obtained. One or more dose reduction techniques were used (e.g., Automated exposure control, adjustment of the mA and/or kV according to patient size, use of iterative reconstruction technique). COMPARISON: CT DATED 12/15/2021 FINDINGS: Vertebra: Multilevel spondylosis is noted. Multilevel degenerative cystic changes in the vertebral bodies. No acute fracture. C1-C2: Moderate to severe degenerative arthritic change. Articulation is maintained. Alignment: Anterolisthesis of C7 on T1 by approximately 3 mm. Disc: Multilevel severe disc space narrowing at C4 through C7. Foramina: Moderate to severe narrowing of the C4-5, C5-6, and C6-C7 foramen on the left and C3-4, and C6-7 foramen on the right. Facets: Mild multilevel bilateral facet arthropathy. Soft Tissues: Unremarkable Lung apices: Unremarkable. CT/Spine Cervical without Contras IMPRESSION: 1. Mild anterolisthesis of C7 on C1. 2. Multilevel degenerative disc disease and spondylosis. 3. No acute osseous abnormalities. 4. Multilevel bilateral foraminal narrowing. Reading Location: [facility]
--- NOTE | 2024-09-07 08:52 | CT_ITS ---
EXAM: CT BRAIN WITHOUT CONTRAST CLINICAL HISTORY: PATIENT FELL THIS MORNING. HISTORY OF DEMENTIA. COMPARISON: CT BRAIN DATED 08/01/2023. TECHNIQUE: Contiguous axial scans of 3.75 mm slice thicknesses with sagittal and coronal reconstruction images. One or more dose reduction techniques were utilized (e.g., automated exposure control, adjustment of mA and/or kv according to patient size, use of iterative reconstruction technique). FINDINGS: Cerebrum: A 1.2 cm area of hyperattenuation is demonstrated in the left occipital lobe, axial image 22, coronal image 62, sagittal image 49.. No abnormal areas of encephalomalacia. No mass effect or midline shift. Diffuse central white matter and subcortical hypoattenuation. Moderate involutional changes are redemonstrated. Ventricles and cisterns: Stable ventricular dilatation. Stable cisterns. Extra-axial fluid: Unremarkable. Posterior fossa: Unremarkable cerebellum. Cerebellar atrophy. No abnormalities involving the brainstem. Paranasal sinuses: Normal. Vasculature: Unremarkable. Mastoid air cells: Normal. Calvarium: Unremarkable. Soft tissues: Unremarkable. CT/Brain/Head without Contrast IMPRESSION: 1. An area of hyperattenuation in the left occipital lobe concerning for a sma ll area of intraparenchymal hemorrhage. 2. Age related chronic microvascular ischemic changes. 3. Moderate cerebral cortical atrophy. 4. Stable ventricular dilatation. Reading Location: [facility]
--- NOTE | 2024-09-07 08:53 | ED.VIS.FALL ---
HPI HPI - Fall History of Present Illness Chief Complaint: Fall Narrative Narrative: 83-year-old female presents from [facility] status post fall. History and physical is mildly limited secondary to dementia. There is reported that she had a fall today and sustained an abrasion to her right forehead and cheek. There was no reported loss of consciousness. No noted blood thinners. Patient complains of mild headache. In review of her medication list, she does not take blood thinners. She denies any neck pain. No other injury. PFSH PFS Medical History Closed fracture of left proximal humerus Left shoulder pain GERD (gastroesophageal reflux disease) HTN (hypertension) Dementia Hypercholesteremia Fall Dementia HLD (hyperlipidemia) TIA (transient ischemic attack) Autoimmune disorder GERD (gastroesophageal reflux disease) Hypertension Hypothyroidism Home Medications ?Medication ?Instructions ?Recorded ?Last Taken ?Type acetaminophen 500 mg capsule 500 mg PO Q6H PRN 08/10/23 Unknown History cholecalciferol (vitamin D3) 50 50 mcg PO DAILY 08/10/23 Unknown History mcg (2,000 unit) capsule citalopram 20 mg tablet mg PO 08/10/23 Unknown History donepezil 5 mg tablet mg PO 08/10/23 Unknown History levothyroxine 50 mcg tablet mcg PO 08/10/23 Unknown History quetiapine 25 mg tablet mg PO 08/10/23 Unknown History olopatadine 0.1 % eye drops 1 drp ophthalmic (eye) BID 09/21/23 Unknown History Allergy/AdvReac Type Severity Reaction Status Date / Time succinylcholine Allergy Severe Other Verified 09/07/24 08:11 (Succinylcholine) levofloxacin (From Levaquin) Allergy Mild Rash Verified 09/07/24 08:11 Sulfa (Sulfonamide Allergy Mild Rash Verified 09/07/24 08:11 Antibiotics) lorazepam AdvReac Intermediate Other Verified 09/07/24 08:11 atorvastatin (From Lipitor) AdvReac muscle Verified 09/07/24 08:11 aches Social History housing: long-term Smoking Status: Never smoker ROS ROS ED ROS Narrative Unable to obtain from patient secondary to dementia/mildly limited. Complains of mild headache, no neck pain. Complains of of right forehead pain and bruising. Review of Systems ROS Unobtainable: due to mental condition EXAM Physical Exam Narrative Exam Narrative: GCS 15. ABCs are intact. HEENT examination does reveal ecchymosis with slight abrasion to the right forehead/cheondoism area. No active bleeding. PERRL, EOMI. Positive linear abrasion without active bleeding on right cheek. No crepitance. Neck soft and supple without meningismus. No vertebral point tenderness or bony step-off. Full range of motion. Cardiovascular examination reveals a regular rate and rhythm. Lungs are clear to auscultation bilaterally. Abdomen is soft and nontender. Neurological examination is nonfocal, not lateralizing. Able to raise arms above head without difficulty. Consistent with dementia. However, awake and alert. Const Vital Signs: 09/07/24 08:11 09/07/24 08:17 Temperature 98.1 F Temperature Source Oral Pulse Rate 72 Respiratory Rate 18 Respiratory Effort Normal Non-Labored Respiratory Depth Normal Respiratory Pattern Normal Blood Pressure 186/80 H Blood Pressure Mean 115 Pulse Ox 95 Oxygen Delivery Method Room Air MDM MDM MDM Narrative Medical decision making narrative: Differential diagnosis includes but not limited to facial contusion versus facial fracture versus intracranial hemorrhage versus closed head injury versus neck fracture. I have low suspicion for neck fracture based on her examination. CT was obtained of the brain to rule out hemorrhage as well as the C-spine to rule out fracture. I do not feel she needs laboratory work or other imaging currently. Her son-in-law who is her guardian is currently at the bedside. I reviewed the radiology report of the CT of the cervical spine and there is no evidence of acute fracture, but there are degenerative changes noted. Of note, on my review of the radiology report CT of the brain, there is an area in the left occipital lobe that is 1.2 cm in size concerning for intraparenchymal hemorrhage. No evidence of shift. Given that she now has a traumatic intraparenchymal hemorrhage, laboratory work will be drawn. Current blood pressure is 144 systolic on the monitor. WBC count normal at 7.0 with hemoglobin 15.7, hematocrit 45.7. I discussed patient with Dr. Lemus through the [facility] Critical care transport line. She has accepted her in transfer. Additionally, I did discuss with the patient's guardian her DNR status and he has elected for DNR comfort care arrest. Critical care transport has been called for transfer as I do not feel that given her DNR status and the small area of intraparenchymal hemorrhage without shift that she does not require air transport. Critical care time 31 minutes. Disposition is transferred in stable condition. History & Record Review Discussion w/independent historian: Patient and Family Lab Data Attestation: I reviewed the patient's lab results. Labs: Laboratory Results - last 24 hr 09/07/24 10:14 WBC 7.0 RBC 5.17 Hgb 15.7 H Hct 45.7 MCV 88.4 MCH 30.4 MCHC 34.4 RDW Std Deviation 41.0 RDW Coeff of Thiago 12.6 Plt Count 186 MPV 10.1 Immature Gran % (Auto) 0.700 Neut % (Auto) 78.1 H Lymph % (Auto) 14.6 L [place] % (Auto) 5.7 Eos % (Auto) 0.3 Baso % (Auto) 0.6 Absolute Neuts (auto) 5.5 Absolute Lymphs (auto) 1.02 Nucleated RBC % 0 Radiography Diagnostic Testing: Clinical Impression(s) from Imaging Studies Brain CT 09/07/24 08:52 IMPRESSION: 1. An area of hyperattenuation in the left occipital lobe concerning for a small area of intraparenchymal hemorrhage. 2. Age related chronic microvascular ischemic changes. 3. Moderate cerebral cortical atrophy. 4. Stable ventricular dilatation. Reading Location: [facility] 09/07/24 08:52 IMPRESSION: 1. Mild anterolisthesis of C7 on C1. 2. Multilevel degenerative disc disease and spondylosis. 3. No acute osseous abnormalities. 4. Multilevel bilateral foraminal narrowing. Reading Location: [facility] Management Discussion w/another healthcare provider: Materials Engineering Technician Critical Care Time Critical Care Time: Yes Critical care time (excluding procedures): 30-74 minutes (31), Including time spent:, Discussing w/Patient &/or Family/Absence Management Consultant, Discussing w/Consultants, Arranging Admission or Transfer and Performing Direct Patient Care at Bedside Discharge Plan Triage Chief Complaint: Fall ED Provider: Arnulfo Cronin Dx/Rx/DC Orders Clinical Impression: Fall, Forehead contusion, Traumatic intraparenchymal hemorrhage, Abrasion of cheek, DNR (do not resuscitate) discussion Prescriptions: No Action acetaminophen 500 mg capsule 500 mg PO Q6H PRN citalopram 20 mg tablet PO donepezil 5 mg tablet PO levothyroxine 50 mcg tablet PO quetiapine 25 mg tablet PO cholecalciferol (vitamin D3) 50 mcg (2,000 unit) capsule 50 mcg PO DAILY olopatadine 0.1 % drops 1 drp ophthalmic (eye) BID Rx Instructions: separate doses by at least 6-8 hours Primary Care Provider: Melvi Villalta Referrals: Melvi Villalta MD [Primary Care Provider] - Print Language: Malawian Disposition Disposition: Acute Care Hospital Discharge Location: [facility]
[2024-09-07 10:28] LABS: Absolute Lymphocyte Count 1.02 X10^3/uL (0.83-4.51); Absolute Neutrophil Count 5.5 X10^3/uL (2.0-7.7); Basophil# 0.04 X10^3/uL; Basophil% 0.6 % (0-1); Eosinophil# 0.02 X10^3/uL; Eosinophils% 0.3 % (0-5); Hematocrit 45.7 % (37-47); Hemoglobin 15.7 g/dL (12.0-15.0); Lymphocyte # 1.02 X10^3/ul (0.83-4.51); Lymphocyte % 14.6 % (19-41); Mean Corp Hgb Conc 34.4 g/dL (32-36); Mean Corpuscular Hgb 30.4 pg (27.0-32.0); Mean Corpuscular Volume 88.4 fL (81-99); Mean Platelet Vol. 10.1 fl (6.2-12.0); Monocyte% 5.7 % (0-10); NRBC Flagged by Analyzer 0 % (0-5); Neutrophil # 5.46 X10^3/uL (2.7-7.7); Neutrophil % 78.1 % (47-70); Platelet Count 186 K/mm3 (150-450); RBC Distribution Width CV 12.6 % (11.6-14.6); Red Blood Count 5.17 M/mm3 (4.2-5.4)
[2024-09-07 10:43] LABS: International Normalized Ratio 0.9; Prothrombin Time (Protime)PT. 12.7 SECONDS (11.7-14.9)
[2024-09-07 10:48] LABS: Partial Thromboplast Time 25.1 Seconds (24.1-36.2)
[2024-09-07 11:10] LABS: ALB/GLOB Ratio 1.7 RATIO (0.9-2.4); AST(SGOT) 17 U/L (<=31); Alanine Aminotransfer ALT/SGPT 12 U/L (<=34); Albumin, Serum 4.2 g/dL (3.4-4.8); Alkaline Phosphatase 78 U/L (35-104); Anion Gap 11 (5-15); BUN 12 mg/dL (4-19); BUN/Creat Ratio 12.8 RATIO (10-20); Calcium 9.6 mg/dL (7.6-11.0); Carbon Dioxide 25.9 mmol/L (22.0-29.0); Chloride 91 mmol/L (96-108); Creatinine, Serum 0.9 mg/dL (0.6-1.0); EST Glomerular Filtration Rate 61 (>60); Estimated Creatinine Clearance 41.17 ml/min; Globulin 2.4 g/dL (2.2-4.2); Glucose 362 mg/dL (70-99); Potassium 4.1 mmol/L (3.3-5.1); Protein, Total 6.6 g/dL (5.9-8.4); Sodium Level 128 mmol/L (133-145); Total Bilirubin 0.65 mg/dL (0.00-1.30)
[2024-09-07 11:41] VITALS: BP 158/75; PULSE 79; RESP 18; TEMP 37.1; O2SAT 99
--- NOTE | 2024-09-07 11:42 | ED.RN ---
maya rios speaks with dr. burton for elevated bp. when they arrived asked if he would order nicardipene. he ordered. they stated they will hang their own. en route to [place]
== END 2024-09-07 11:44 | disposition short-term general hospital (02) ==
PROVIDERS: Emergency Provider Emergency Medicine; PCP Internal Medicine; Visit Provider Emergency Medicine
DX: S06.350A Traumatic hemorrhage of left cerebrum without loss of consciousness, initial encounter (principal); F03.90 Unspecified dementia, unspecified severity, without behavioral disturbance, psychotic disturbance, mood disturbance, and anxiety; S00.83XA Contusion of other part of head, initial encounter; S00.81XA Abrasion of other part of head, initial encounter; W19.XXXA Unspecified fall, initial encounter; Y92.129 Unspecified place in nursing home as the place of occurrence of the external cause; I10 Essential (primary) hypertension; E03.9 Hypothyroidism, unspecified; Z66 Do not resuscitate; Z88.2 Allergy status to sulfonamides; Z88.1 Allergy status to other antibiotic agents; Z86.73 Personal history of transient ischemic attack (TIA), and cerebral infarction without residual deficits; Z79.890 Hormone replacement therapy; Z79.899 Other long term (current) drug therapy
CPT/HCPCS: 70450; 72125; 80053; 85025; 85610; 85730; 99285; A4216

== ENCOUNTER → 2025-04-20 | Outpatient (REF) | payer MEDICARE, SELFPAY ==
[2025-04-20 22:21] LABS: Mucous, Urine 0 SEEN /hpf (<or=2+); Red Blood Cells-Urine 0 SEEN /hpf (0-5)
[2025-04-20 22:30] LABS: Color, Urine Straw (Yellow); Glucose, Dipstick 1000 mg/dl (Normal); Ketone-Dipstick Negative (Negative); Leukocyte Esterase-Dipstick 100 /ul (Negative); Nitrite-Dipstick Negative (Negative); Occult Blood-Urine Negative /ul (Negative); Protein-Dipstick 15 mg/dl (Negative); Specific Gravity, Urine 1.015 (1.002-1.030); Urine Bilirubin Dipstick Negative (Negative)
[2025-04-20 23:30] LABS: Squamous Epithelial Cells - UA 0-5 SEEN /hpf (5-10)
== END ==
LOC: OLS.BROOKB 13:00
PROVIDERS: PCP Internal Medicine; Visit Provider Internal Medicine
DX: N39.0 Urinary tract infection, site not specified (principal); R46.89 Other symptoms and signs involving appearance and behavior; R29.6 Repeated falls
CPT/HCPCS: 81001; 87077; 87086; 87088; 87186

== ENCOUNTER → 2025-04-25 | Outpatient (REF) | payer MEDICARE, SELFPAY ==
[2025-04-25 09:25] LABS: Anion Gap 8 (5-15); BUN 13 mg/dL (4-19); BUN/Creat Ratio 13.8 RATIO (10-20); Calcium,Total 9.9 mg/dL (7.6-11.0); Carbon Dioxide 27.4 mmol/L (21.0-32.0); Chloride 94 mmol/L (98-108); Glucose 368 mg/dL (70-99); Potassium 4.5 mmol/L (3.3-5.1)
== END ==
LOC: OLS.BROOKB 04:00
PROVIDERS: PCP Internal Medicine; Referring Provider Internal Medicine; Visit Provider Internal Medicine
DX: R81 Glycosuria (principal); Z79.899 Other long term (current) drug therapy
CPT/HCPCS: 36415; 80048